=== PATIENT | female | born 1990 | race Caucasian/White ===

== ENCOUNTER 2016-09-22 05:10 | Inpatient (IN) | payer OTHER ==
[~2016-09-22] VITALS: Ht 165.1 cm; Wt 50.8 kg
[2016-09-22] VITALS (9 sets, daily range): BP systolic 111–134; BP diastolic 65–101; PULSE 64–128; RESP 16–20; TEMP 98.4–98.7; O2SAT 94–100
[~2016-09-22 05:10] MED LIST: PROM25SU8 PO; Z.0.NO CURRENT MEDS
[2016-09-22] MEDS ORDERED: SODIUM CHLOR 0.9% 1000 ML INJ 100 ML IV ONE (05:15)
[2016-09-22] MEDS ORDERED: SODIUM CHLOR 0.9% 1000 ML INJ 1,000 ML IV ONE ×2 (05:15)
[2016-09-22] MEDS ORDERED: PIPERACIL-TAZO 4.5 GM PREMIX 100 ML IV STA (05:15)
[2016-09-22 05:49] LABS: AUTOMATED NEUTROPHIL # 1.8 TH/MM3 (1.8-7.7); BASOPHIL % 0.8 % (0.0-2.0); EOSINOPHIL # 0.1 TH/MM3 (0-0.4); EOSINOPHIL % 2.9 % (0.0-4.0); HEMATOCRIT 38.4 % (35.0-46.0); HEMO FLAGS DIFF FINAL; LYMPH % 44.3 % (9.0-44.0); LYMPHOCYTE # 2.1 TH/MM3 (1.0-4.8); MEAN CELL VOLUME 91.5 FL (80.0-100.0); MEAN CORPUSCULAR HGB CONC 34.9 % (32.0-36.0); MONO % 13.6 % (0.0-8.0); NEUT % 38.4 % (16.0-70.0); PLATELET COUNT 155 TH/MM3 (150-450); RED CELL DISTRIBUTION WIDTH 14.5 % (11.6-17.2); WHITE BLOOD COUNT 4.7 TH/MM3 (4.0-11.0)
--- NOTE | 2016-09-22 06:04 | RADRPT ---
EXAM DATE/TIME: 09/22/2016 05:16 [facility] COMPARISON: No previous studies available for comparison. INDICATIONS : Fever. MEDICAL HISTORY : None. SURGICAL HISTORY : None. ENCOUNTER: Initial ACUITY: 1 day PAIN SCORE: 0/10 LOCATION: Bilateral chest FINDINGS: A single view of the chest demonstrates the lungs to be symmetrically aerated without evidence of mas s, infiltrate or effusion. The cardiomediastinal contours are unremarkable. Osseous structures are intact. CONCLUSION: 1. No acute cardiopulmonary disease. Albino Hubbard MD on September 22, 2016 at 6:02 Board Certified Radiologist. This report was verified electronically.
[2016-09-22 06:21] LABS: ALT (GPT) 152 U/L (10-53); ANION GAP 11 MEQ/L (5-15); AST (GOT) 539 U/L (15-37); BICARBONATE 27.4 MEQ/L (21.0-32.0); BLOOD UREA NITROGEN 5 MG/DL (7-18); CHLORIDE 103 MEQ/L (98-107); GLOMERULAR FILTRATION RATE 107 ML/MIN (>89); POTASSIUM 3.3 MEQ/L (3.5-5.1); SODIUM (NA) 141 MEQ/L (136-145)
[2016-09-22 06:25] LABS: ALKALINE PHOSPHATASE 166 U/L (45-117); CREATINE KINASE 298 U/L (26-192); TOTAL BILIRUBIN ADULT 0.3 MG/DL (0.2-1.0)
[2016-09-22 06:38] LABS: CKMB 5.8 NG/ML (0.5-3.6)
[2016-09-22 07:26] LABS: BACTERIA, URINE RARE /hpf; BLOOD, URINE NEG (NEG); COMMENT (UR) CATH-CULTURE IND; CULTURE IF INDICATED CATH CULTURE IND; GLUCOSE,URINE NEG (NEG); KETONE, URINE NEG (NEG); MUCUS URINE FEW /lpf (OCC); NITRITE,URINE NEG (NEG); PH, URINE 7.5 (5.0-8.5); RENAL EPITHELIAL CELLS <1 /hpf; SQUAMOUS EPITHELIAL CELL URINE 29 /hpf (0-5); URINE COLOR YELLOW (YELLW/STRAW)
--- NOTE | 2016-09-22 07:31 | PD ---
HPI Chief Complaint: Bleeding Time Seen by Provider: 05:15 Travel History International Travel<30 days: No Contact w/Intl Traveler<30days: No Traveled to known affect area: No History of Present Illness HPI 25-year-old female arrives to the ER by EMS at about 4 AM. She has suffered with intermittent episodes of rectal bleeding for about 10 years. Apparently intermittent episodes of rectal prolapse occur as well. She notices some red blood on toilet paper and on towels after showering. She notes no menstruation for about 2 years. She started to use drugs intravenously about 6 months ago. She came in to the ER this morning due to rectal pain quite severe which radiated up the spine. She fell to the ground twice due to pain. She reports, "I often do run fevers." She states the pain in the lower back is severe and constant. Decreased appetite and oral intake is reported. Upon the second assessment the patient reports drinking at least a pint of liquor daily and vomiting about 5 times per day. She denies diarrhea fecal urinary incontinence. No perianal perineal paresthesia to report. PFSH Past Medical History Blood Disorders: No Depression: Yes Diabetes: No Diminished Hearing: No Immunizations Current: Yes Tetanus Vaccination: Unknown Influenza Vaccination: No ?: Not LMP: pt states "it stopped about a yr ago" : 1 : 1 Dilation and Curettage (D&C): Yes Social History Alcohol Use: Yes (2 ETOH yesterday ) Tobacco Use: Yes (OCCASIONAL) Substance Use: No Allergies-Medications (Allergen,Severity, Reaction): Coded Allergies: Darvocet-N 100 (Verified Allergy, Unknown, 07/05/16) REPORTS NO ALLERGY Reported Meds & Prescriptions Reported Meds & Active Scripts Active No Active Prescriptions or Reported Medications Review of Systems Except as stated in HPI: all other systems reviewed are Neg General / Constitutional: Positive: Fever Gastrointestinal: Positive: Other (rectal bleeding) Musculoskeletal: Positive: Pain Psychiatric: Positive: Mood Disorder, Substance Abuse Physical Exam Narrative GENERAL: 25-year-old female mild to moderate distress SKIN: Warm and dry. Linear lesion along the left forearm consistent with IV drug abuse. HEAD: Atraumatic. Normocephalic. EYES: Pupils equal and round. No scleral icterus. No injection or drainage. ENT: No nasal bleeding or discharge. Mucous membranes pink and moist. NECK: Trachea midline. No JVD. CARDIOVASCULAR: Regular rate and rhythm. No murmur appreciated. RESPIRATORY: No accessory muscle use. Clear to auscultation. Breath sounds equal bilaterally. GASTROINTESTINAL: Soft. No focus of tenderness. RECTAL: No hemorrhoid fissure or fistula. No mass in the vault. Tone somewhat diminished. Clear mucus was guaiac negative. MUSCULOSKELETAL: No obvious deformities. No clubbing. No cyanosis. No edema. Tenderness in the lower lumbar spine midline area. NEUROLOGICAL: Awake and alert. No obvious cranial nerve deficits. Motor grossly within normal limits. Normal speech. PSYCHIATRIC: Appropriate mood and affect; insight and judgment normal. Data Data Last Documented VS Vital Signs Date Time Temp Pulse Resp B/P Pulse Ox O2 Delivery O2 Flow Rate FiO2 09/22/16 06:11 96 Nasal Cannula 2 09/22/16 05:14 98.4 128 18 134/81 Vital signs reviewed Orders Electrocardiogram (09/22/16 05:15) Complete Blood Count With Diff (09/22/16 05:15) Comprehensive Metabolic Panel (09/22/16 05:15) Lactic Acid Sepsis Protocol (09/22/16 05:15) Lipase (09/22/16 05:15) Ckmb (Isoenzyme) Profile (09/22/16 05:15) Troponin I (09/22/16 05:15) Urinalysis - C+S If Indicated (09/22/16 05:15) Blood Culture (09/22/16 05:15) Chest, Single Ap (09/22/16 05:15) Blood Glucose (09/22/16 05:15) Ecg Monitoring (09/22/16 05:15) Iv Access Insert/Monitor (09/22/16 05:15) Oximetry (09/22/16 05:15) Oxygen Administration (09/22/16 05:15) Piperacil-Tazo 4.5 Gm Premix (Zosyn 4.5 (09/22/16 05:15) Sodium Chlor 0.9% 1000 Ml Inj (Ns 1000 M (09/22/16 05:15) Sodium Chlor 0.9% 1000 Ml Inj (Ns 1000 M (09/22/16 05:15) Sodium Chlor 0.9% 1000 Ml Inj (Ns 1000 M (09/22/16 05:15) Ed Urine Pregnancytest Poc (09/22/16 05:15) Ct Pulmonary Angiogram (09/22/16 05:19) CKMB (09/22/16 05:30) CKMB% (09/22/16 05:30) Ct Abd/Pel W Iv Contrast(Rout) (09/22/16 06:46) Ct Lumb Spine W Iv Contrast (09/22/16 ) Ct Thor Spine W Iv Contrast (09/22/16 ) Labs Laboratory Tests Test 09/22/16 09/22/16 05:30 05:35 White Blood Count 4.7 TH/MM3 Red Blood Count 4.20 MIL/MM3 Hemoglobin 13.4 GM/DL Hematocrit 38.4 % Mean Corpuscular Volume 91.5 FL Mean Corpuscular Hemoglobin 32.0 PG Mean Corpuscular Hemoglobin 34.9 % Concent Red Cell Distribution Width 14.5 % Platelet Count 155 TH/MM3 Mean Platelet Volume 7.4 FL Neutrophils (%) (Auto) 38.4 % Lymphocytes (%) (Auto) 44.3 % Monocytes (%) (Auto) 13.6 % Eosinophils (%) (Auto) 2.9 % Basophils (%) (Auto) 0.8 % Neutrophils # (Auto) 1.8 TH/MM3 Lymphocytes # (Auto) 2.1 TH/MM3 Monocytes # (Auto) 0.6 TH/MM3 Eosinophils # (Auto) 0.1 TH/MM3 Basophils # (Auto) 0.0 TH/MM3 CBC Comment DIFF FINAL Differential Comment Sodium Level 141 MEQ/L Potassium Level 3.3 MEQ/L Chloride Level 103 MEQ/L Carbon Dioxide Level 27.4 MEQ/L Anion Gap 11 MEQ/L Blood Urea Nitrogen 5 MG/DL Creatinine 0.66 MG/DL Estimat Glomerular Filtration 107 ML/MIN Rate Random Glucose 86 MG/DL Calcium Level 8.6 MG/DL Total Bilirubin 0.3 MG/DL Aspartate Amino Transf 539 U/L (AST/SGOT) Alanine Aminotransferase 152 U/L (ALT/SGPT) Alkaline Phosphatase 166 U/L Total Creatine Kinase 298 U/L Creatine Kinase MB 5.8 NG/ML Creatine Kinase MB % 1.9 % Troponin I LESS THAN 0.02 NG/ML Total Protein 9.0 GM/DL Albumin 3.5 GM/DL Lipase 301 U/L Lactic Acid Level 1.3 mmol/L MDM Medical Decision Making Medical Screen Exam Complete: Yes Emergency Medical Condition: Yes Medical Record Reviewed: Yes Differential Diagnosis Endocarditis, rectal prolapse, anemia, hepatobiliary disease, epidural abscess, anemia, multiorgan failure, GI bleed Narrative Course Patient arrives tachycardic with a history of IV drug abuse coupled with rectal bleeding and severe pain in the back. Endocarditis epidural abscess are of obvious concern with workup for both initiated. 3 sets of blood cultures initiated. Zosyn and vancomycin started. [address] of the thoracic and lumbar spine as well as CT of the thorax and abdomen pelvis ordered. Oncoming provider to follow up on patient and disposition pending results of imaging and blood work. Scripts No Active Prescriptions or Reported Meds Nawaf Donato MD Sep 22, 2016 07:31
[2016-09-22] MEDS ORDERED: VANCOMYCIN INJ 1,250 MG in SODIUM CHLOR 0.9% 250 ML INJ 250 ML IV ONE (07:45)
--- NOTE | 2016-09-22 07:51 | RADRPT ---
EXAM DATE/TIME: 09/22/2016 07:15 [facility] COMPARISON: No previous studies available for comparison. INDICATIONS : Short of breath. IV CONTRAST: 75 cc Omnipaque 350 (iohexol) IV RADIATION DOSE: 8.29 CTDIvol (mGy) MEDICAL HISTORY : None SURGICAL HISTORY : None. ENCOUNTER: Initial ACUITY: 1 day PAIN SCALE: 3/10 LOCATION: chest TECHNIQUE: Volumetric scanning of the chest was performed using a pulmonary embolism protocol MIP images were re constructed. Using automated exposure control and adjustment of the mA and/or kV according to patien t size, radiation dose was kept as low as reasonably achievable to obtain optimal diagnostic quality images. FINDINGS: PULMONARY ARTERIES: No filling defects are seen in the pulmonary arteries through the segmental level. LUNGS: Mild patchy, predominantly groundglass opacity in the left lower lobe. Lungs are otherwise clear. PLEURAE: There is no pleural thickening or pleural effusion. MEDIASTINUM: There is good visualization of the great vessels of the middle mediastinum. No evidence of mediastin al or hilar adenopathy/mass. MUSCULOSKELETAL: Within normal limits for patient age. MISCELLANEOUS: Diffuse hypodensity of the liver indicating hepatic steatosis. CONCLUSION: 1. No evidence of pulmonary embolus. 2. Mild patchy opacity in the left lower lobe indicating atelectasis versus minimal inflammatory vaughan ge. No evidence of pulmonary consolidation Alex Mendez MD on September 22, 2016 at 7:43 Board Certified Radiologist. This report was verified electronically.
[2016-09-22] MEDS ORDERED: IOHEXOL 350 MG/ML 10 ML VIAL (for RAD DIAG) IV ONE (07:59)
--- NOTE | 2016-09-22 08:12 | RADRPT ---
EXAM DATE/TIME: 09/22/2016 07:15 [facility] COMPARISON: CT ABDOMEN & PELVIS W CONTRAST, January 28, 2015, 5:10. INDICATIONS : Abdomen pain, pancreatitis. IV CONTRAST: 75 cc Omnipaque 350 (iohexol) IV ; Cumulative dose for multiple exams. ORAL CONTRAST: No oral contrast ingested. RADIATION DOSE: 4.49 CTDIvol (mGy) MEDICAL HISTORY : None SURGICAL HISTORY : None. ENCOUNTER: Initial ACUITY: 1 day PAIN SCALE: 5/10 LOCATION: abdomen TECHNIQUE: Volumetric scanning of the abdomen and pelvis was performed. Using automated exposure control and ad justment of the mA and/or kV according to patient size, radiation dose was kept as low as reasonably achievable to obtain optimal diagnostic quality images. FINDINGS: LOWER LUNGS: The visualized lower lungs are clear. LIVER: Marked diffuse hypodensity of the liver indicating hepatic steatosis. No focal mass identified. Faizan l veins are patent. No biliary ductal dilatation identified. No calcified gallstones identified. SPLEEN: Normal size without lesion. PANCREAS: Within normal limits. KIDNEYS: 3 mm nonobstructing calculus in the midpole the right kidney. ADRENAL GLANDS: Within normal limits. VASCULAR: There is no aortic aneurysm. BOWEL/MESENTERY: No evidence of bowel dilatation. No free air or free fluid. Appendix within normal limits. ABDOMINAL WALL: Within normal limits. RETROPERITONEUM: Multiple prominent retroperitoneal lymph nodes. This is most evident in the para-aortic region at the level of the kidneys. Left para-aortic lymph node measures 1.6 cm in short axis dimension on image # 38, compared to 1.4 cm on prior study of 01/28/2015. [place] of lymph nodes in the left para-aortic region on image #37 measures 3.4 x 2.0 cm compared to 3.1 x 1.6 cm on the prior study. Aorticocaval lymph node measures 2.0 x 1.0 on image #30 compared to 1.1 x 0.6 cm on the prior study. There is now abnormal presacral soft tissue density measuring 3.2 x 1.4 cm, not seen on the prior study. BLADDER: No wall thickening or mass. REPRODUCTIVE: Left-sided fundal uterine fibroid is again seen slightly less prominent than on the comparison study. Adnexal regions within normal limits. INGUINAL: There is no lymphadenopathy or hernia. MUSCULOSKELETAL: Within normal limits for patient age. CONCLUSION: 1. Multiple mildly to moderately enlarged retroperitoneal lymph nodes, most prominent in the para-aor tic region of the abdomen. The lymph nodes have increased in size when compared to the prior study of January 2015. New presacral masslike retroperitoneal soft tissue density. These findings are nonspecifi c and may represent reactive lymph nodes related to infection. Malignancy such as lymphoma also in th e differential diagnosis. 2. Moderate to severe hepatic steatosis. 3. Nonobstructing right renal calculus. 4. Left-sided fundal uterine fibroid again seen. 5. No peripancreatic inflammatory changes identified. Alex Mendez MD on September 22, 2016 at 7:50 Board Certified Radiologist. This report was verified electronically.
[2016-09-22] MEDS ORDERED: ONDANSETRON HCL 4 MG/2 ML VIAL IV PUSH ONE (08:15)
--- NOTE | 2016-09-22 08:32 | RADRPT ---
EXAM DATE/TIME: 09/22/2016 07:15 [facility] COMPARISON: CT THORACIC SPINE W CONTRAST, September 22, 2016, 7:15. INDICATIONS : Lower back pain. IV CONTRAST: 75 cc Omnipaque 350 (iohexol) IV ; Cumulative dose for multiple exams. RADIATION DOSE: ; Reconstructed from previous dataset MEDICAL HISTORY : None SURGICAL HISTORY : None. ENCOUNTER: Initial ACUITY: 1 day PAIN SCALE: 5/10 LOCATION: lower back pain. TECHNIQUE: Volumetric scanning of the lumbar spine was performed. Multiplanar reconstructions in the sagittal, coronal and oblique axial planes were performed. Using automated exposure control and adjustment of the mA and/or kV according to patient size, radiation dose was kept as low as reasonably achievable t o obtain optimal diagnostic quality images. FINDINGS: CONUS MEDULLARIS: Normal. PARASPINAL SOFT TISSUES: Normal. LUMBAR CORD: Normal. DURAL SAC: Normal. L1-L2: The disc, uncovertebral joints, central canal, foramina, and facets are normal. L2-L3: The disc, uncovertebral joints, central canal, foramina, are normal. L3-L4: The disc, uncovertebral joints, central canal, foramina, and facets are normal. L4-L5: The disc, uncovertebral joints, central canal, foramina, and facets are normal. L5-S1: The disc, uncovertebral joints, central canal, foramina, and facets are normal. CONCLUSION: Mild left-sided facet arthrosis at L2-3. Presacral soft tissue density, prominent ret roperitoneal lymph nodes, and right-sided nonobstructing renal calculus as described on abdomen and p ricardo CT report. Alex Mendez MD on September 22, 2016 at 8:30 Board Certified Radiologist. This report was verified electronically.
--- NOTE | 2016-09-22 08:37 | RADRPT ---
EXAM DATE/TIME: 09/22/2016 07:15 [facility] COMPARISON: CT ABDOMEN & PELVIS W CONTRAST, September 22, 2016, 7:15. INDICATIONS : Upper back pain. IV CONTRAST: 75 cc Omnipaque 350 (iohexol) IV RADIATION DOSE: ; Reconstructed from previous dataset MEDICAL HISTORY : None SURGICAL HISTORY : None. ENCOUNTER: Initial ACUITY: 1 day PAIN SCALE: 5/10 LOCATION: lower back TECHNIQUE: Volumetric scanning of the thoracic spine was performed. Multiplanar reconstructions in the sagittal , coronal and oblique axial planes were performed. Using automated exposure control and adjustment o f the mA and/or kV according to patient size, radiation dose was kept as low as reasonably achievable to obtain optimal diagnostic quality images. FINDINGS: Mild right convex diffuse thoracic curvature. The vertebral bodies of the thoracic spine are in normal alignment without evidence of subluxation. Vertebral body height is maintained. No fractures are seen. Small Schmorl's nodes are noted at T7-8 and T8-9, T9-10, T10-11 and T11-12. T1-T2: Normal. T2-T3: The thecal sac has a normal diameter. No evidence of disc bulge or protrusion. T3-T4: The thecal sac has a normal diameter. No evidence of disc bulge or protrusion. T4-T5: The thecal sac has a normal diameter. No evidence of disc bulge or protrusion. T5-T6: The thecal sac has a normal diameter. No evidence of disc bulge or protrusion. T6-T7: The thecal sac has a normal diameter. No evidence of disc bulge or protrusion. T7-T8: The thecal sac has a normal diameter. No evidence of disc bulge or protrusion. T8-T9: The thecal sac has a normal diameter. No evidence of disc bulge or protrusion. T9-T10: Right paracentral disc protrusion. Central canal diameter within normal limits. Neural foraminal diam eters within normal limits. T10-T11: The thecal sac has a normal diameter. No evidence of disc bulge or protrusion. T11-T12: Left paracentral disc protrusion. Central canal diameter within normal limits. Neural foraminal diame ters within normal limits. T12-L1: The thecal sac has a normal diameter. No evidence of disc bulge or protrusion. CONCLUSION: Mild multilevel degenerative findings. No evidence of abscess. Alex Mendez MD on September 22, 2016 at 8:31 Board Certified Radiologist. This report was verified electronically.
[2016-09-22] MEDS ORDERED: PIPERACIL-TAZO 3.375 GM PREMIX 50 ML IV ONE (09:15)
--- NOTE | 2016-09-22 09:19 | PD ---
Physical Exam Date Seen by Provider: Sep 22, 2016 Time Seen by Provider: 09:05 Narrative She was signed out to me by Dr. Donato at [address] AM[address] We're awaiting CT results. The patient has rectal bleeding, pain and sensation of pressure inside her pelvis. CT scan shows a presacral retroperitoneal mass like structure. There was also noted lymphadenopathy. The differential diagnosis was infectious versus lymphoma versus inflammatory changes. The patient initially presented with tachycardia with a rate in the 120s. Data Data Last Documented VS Vital Signs Date Time Temp Pulse Resp B/P Pulse Ox O2 Delivery O2 Flow Rate FiO2 09/22/16 08:27 95 20 111/79 95 Room Air 09/22/16 06:11 2 09/22/16 05:14 98.4 Orders Electrocardiogram (09/22/16 05:15) Complete Blood Count With Diff (09/22/16 05:15) Comprehensive Metabolic Panel (09/22/16 05:15) Lactic Acid Sepsis Protocol (09/22/16 05:15) Lipase (09/22/16 05:15) Ckmb (Isoenzyme) Profile (09/22/16 05:15) Troponin I (09/22/16 05:15) Urinalysis - C+S If Indicated (09/22/16 05:15) Blood Culture (09/22/16 05:15) Chest, Single Ap (09/22/16 05:15) Blood Glucose (09/22/16 05:15) Ecg Monitoring (09/22/16 05:15) Iv Access Insert/Monitor (09/22/16 05:15) Oximetry (09/22/16 05:15) Oxygen Administration (09/22/16 05:15) Piperacil-Tazo 4.5 Gm Premix (Zosyn 4.5 (09/22/16 05:15) Sodium Chlor 0.9% 1000 Ml Inj (Ns 1000 M (09/22/16 05:15) Sodium Chlor 0.9% 1000 Ml Inj (Ns 1000 M (09/22/16 05:15) Sodium Chlor 0.9% 1000 Ml Inj (Ns 1000 M (09/22/16 05:15) Ed Urine Pregnancytest Poc (09/22/16 05:15) Ct Pulmonary Angiogram (09/22/16 05:19) CKMB (09/22/16 05:30) CKMB% (09/22/16 05:30) Ct Abd/Pel W Iv Contrast(Rout) (09/22/16 06:46) Ct Lumb Spine W Iv Contrast (09/22/16 ) Ct Thor Spine W Iv Contrast (09/22/16 ) Urine Culture (09/22/16 06:55) Vancomycin Inj (Vancomycin Inj) (09/22/16 07:45) Iohexol 350 Inj (Omnipaque 350 Inj) (09/22/16 07:59) Ondansetron Inj (Zofran Inj) (09/22/16 08:15) Piperacil-Tazo 3.375 Gm Premix (Zosyn 3. (09/22/16 09:15) Admit Order (Ed Use Only) (09/22/16 09:15) Labs Laboratory Tests Test 09/22/16 09/22/16 09/22/16 05:30 05:35 06:55 White Blood Count 4.7 TH/MM3 Red Blood Count 4.20 MIL/MM3 Hemoglobin 13.4 GM/DL Hematocrit 38.4 % Mean Corpuscular Volume 91.5 FL Mean Corpuscular Hemoglobin 32.0 PG Mean Corpuscular Hemoglobin 34.9 % Concent Red Cell Distribution Width 14.5 % Platelet Count 155 TH/MM3 Mean Platelet Volume 7.4 FL Neutrophils (%) (Auto) 38.4 % Lymphocytes (%) (Auto) 44.3 % Monocytes (%) (Auto) 13.6 % Eosinophils (%) (Auto) 2.9 % Basophils (%) (Auto) 0.8 % Neutrophils # (Auto) 1.8 TH/MM3 Lymphocytes # (Auto) 2.1 TH/MM3 Monocytes # (Auto) 0.6 TH/MM3 Eosinophils # (Auto) 0.1 TH/MM3 Basophils # (Auto) 0.0 TH/MM3 CBC Comment DIFF FINAL Differential Comment Sodium Level 141 MEQ/L Potassium Level 3.3 MEQ/L Chloride Level 103 MEQ/L Carbon Dioxide Level 27.4 MEQ/L Anion Gap 11 MEQ/L Blood Urea Nitrogen 5 MG/DL Creatinine 0.66 MG/DL Estimat Glomerular Filtration 107 ML/MIN Rate Random Glucose 86 MG/DL Calcium Level 8.6 MG/DL Total Bilirubin 0.3 MG/DL Aspartate Amino Transf 539 U/L (AST/SGOT) Alanine Aminotransferase 152 U/L (ALT/SGPT) Alkaline Phosphatase 166 U/L Total Creatine Kinase 298 U/L Creatine Kinase MB 5.8 NG/ML Creatine Kinase MB % 1.9 % Troponin I LESS THAN 0.02 NG/ML Total Protein 9.0 GM/DL Albumin 3.5 GM/DL Lipase 301 U/L Lactic Acid Level 1.3 mmol/L Urine Color YELLOW Urine Turbidity HAZY Urine pH 7.5 Urine Specific [place] 1.022 Urine Protein TRACE mg/dL Urine Glucose (UA) NEG mg/dL Urine Ketones NEG mg/dL Urine Occult Blood NEG Urine Nitrite NEG Urine Bilirubin NEG Urine Urobilinogen LESS THAN 2.0 MG/DL Urine Leukocyte Esterase NEG Urine RBC 1 /hpf Urine WBC 4 /hpf Urine Squamous Epithelial 29 /hpf Cells Urine Renal Epithelial Cells <1 /hpf Urine Amorphous Sediment FEW Urine Bacteria RARE /hpf Urine Mucus FEW /lpf Microscopic Urinalysis Comment CATH-CULTURE IND MDM Medical Record Reviewed: Yes Supervised Visit with SHAILESH: No Narrative Course 25-year-old female signed out to me by Dr. Nawaf Donato. We are waiting CT scan results. The patient came in with rectal bleeding and pain. She also had a large pressure-like sensation in her rectum into her pelvis. CT scan shows a presacral retroperitoneal mass with a differential of infectious versus neoplastic. The patient's LFTs are also elevated with predominance of AST over ALT. The patient had previously been started on vancomycin. Her white blood cell count is 4.2. I spoke with Dr. Haro, [facility] hospitalist covering for her primary care doctor, Dr. Mahad Gomes, who requested we add Zosyn to her antibiotics. She will be admitted to his service. Diagnosis Primary Impression: presacral retroperitoneal mass Additional Impressions: Elevated liver enzymes history of IVD drug use. Rectal bleeding Scripts No Active Prescriptions or Reported Meds Javier Bautista MD Sep 22, 2016 09:19
[2016-09-22] MEDS ORDERED: LORazepam 2 MG/ML VIAL IV PUSH PRN ×3 (10:30)
[2016-09-22] MEDS ORDERED: POTASSIUM CHLORIDE 20 MEQ CONTROLLED RELEASE TAB PO ONE (10:30)
[2016-09-22] MEDS ORDERED: MAGNESIUM HYDROXIDE SUSP 30 ML CUP PO PRN (10:30)
[2016-09-22] MEDS ORDERED: LORazepam 2 MG TAB PO PRN (10:30)
[2016-09-22] MEDS ORDERED: ACETAMINOPHEN 325 MG TAB PO PRN (10:30)
[2016-09-22] MEDS ORDERED: LORazepam 1 MG TAB PO PRN (10:30)
[2016-09-22] MEDS ORDERED: FLUMAZENIL 0.5 MG/5 ML VIAL IV PUSH PRN (10:30)
[2016-09-22] MEDS ORDERED: BISACODYL 10 MG SUPP PR PRN (10:30)
[2016-09-22] MEDS ORDERED: Vancomycin Consult Pharmacy 1 EA XX SCH (10:30)
[2016-09-22] MEDS ORDERED: SODIUM CHLORIDE 0.9% FLUSH 5 ML FLUSH FLUSH PRN (10:30)
[2016-09-22] MEDS ORDERED: NALOXONE HCL 0.4 MG/ML AMP IV PRN (10:30)
--- NOTE | 2016-09-22 12:06 | PD.CAR.PN ---
CVT Progress Note Subjective/Hospital Course: 25-year-old female with the retroperitoneal para-aortic lymphadenopathy and the likelihood lymphatic mass in her pelvis Related symptoms of nausea vomiting weight loss and possible rectal bleeding Will proceed with laparoscopic biopsy in this lady once colonoscopy and upper endoscopy are done and serologic testing is completed, likely early this coming week Full consult dictated Thanks Ermelinda Objective: Vital Signs Date Time Temp Pulse Resp B/P Pulse Ox O2 Delivery O2 Flow Rate FiO2 09/22/16 08:27 95 20 111/79 95 Room Air 09/22/16 08:26 100 09/22/16 06:11 96 Nasal Cannula 2 09/22/16 05:19 Room Air 09/22/16 05:14 98.4 128 18 134/81 94 Labs: Laboratory Tests Test 09/22/16 09/22/16 09/22/16 05:30 05:35 06:55 White Blood Count 4.7 TH/MM3 (4.0-11.0) Red Blood Count 4.20 MIL/MM3 (4.00-5.30) Hemoglobin 13.4 GM/DL (11.6-15.3) Hematocrit 38.4 % (35.0-46.0) Mean Corpuscular Volume 91.5 FL (80.0-100.0) Mean Corpuscular Hemoglobin 32.0 PG (27.0-34.0) Mean Corpuscular Hemoglobin 34.9 % Concent (32.0-36.0) Red Cell Distribution Width 14.5 % (11.6-17.2) Platelet Count 155 TH/MM3 (150-450) Mean Platelet Volume 7.4 FL (7.0-11.0) Neutrophils (%) (Auto) 38.4 % (16.0-70.0) Lymphocytes (%) (Auto) 44.3 % (9.0-44.0) Monocytes (%) (Auto) 13.6 % (0.0-8.0) Eosinophils (%) (Auto) 2.9 % (0.0-4.0) Basophils (%) (Auto) 0.8 % (0.0-2.0) Neutrophils # (Auto) 1.8 TH/MM3 (1.8-7.7) Lymphocytes # (Auto) 2.1 TH/MM3 (1.0-4.8) Monocytes # (Auto) 0.6 TH/MM3 (0-0.9) Eosinophils # (Auto) 0.1 TH/MM3 (0-0.4) Basophils # (Auto) 0.0 TH/MM3 (0-0.2) CBC Comment DIFF FINAL Differential Comment Sodium Level 141 MEQ/L (136-145) Potassium Level 3.3 MEQ/L (3.5-5.1) Chloride Level 103 MEQ/L (98-107) Carbon Dioxide Level 27.4 MEQ/L (21.0-32.0) Anion Gap 11 MEQ/L (5-15) Blood Urea Nitrogen 5 MG/DL (7-18) Creatinine 0.66 MG/DL (0.50-1.00) Estimat Glomerular Filtration 107 ML/MIN Rate (>89) Random Glucose 86 MG/DL (74-106) Calcium Level 8.6 MG/DL (8.5-10.1) Total Bilirubin 0.3 MG/DL (0.2-1.0) Aspartate Amino Transf 539 U/L (15-37) (AST/SGOT) Alanine Aminotransferase 152 U/L (10-53) (ALT/SGPT) Alkaline Phosphatase 166 U/L (45-117) Total Creatine Kinase 298 U/L (26-192) Creatine Kinase MB 5.8 NG/ML (0.5-3.6) Creatine Kinase MB % 1.9 % (0.0-4.0) Troponin I LESS THAN 0.02 NG/ML (0.02-0.05) Total Protein 9.0 GM/DL (6.4-8.2) Albumin 3.5 GM/DL (3.4-5.0) Lipase 301 U/L (73-393) Lactic Acid Level 1.3 mmol/L (0.4-2.0) Urine Color YELLOW (YELLW/STRAW) Urine Turbidity HAZY (CLEAR) Urine pH 7.5 (5.0-8.5) Urine Specific [place] 1.022 (1.002-1.035) Urine Protein TRACE mg/dL (NEG-TRACE) Urine Glucose (UA) NEG mg/dL (NEG) Urine Ketones NEG mg/dL (NEG) Urine Occult Blood NEG (NEG) Urine Nitrite NEG (NEG) Urine Bilirubin NEG (NEG) Urine Urobilinogen LESS THAN 2.0 MG/DL (LESS THAN 2.0) Urine Leukocyte Esterase NEG (NEG) Urine RBC 1 /hpf (0-3) Urine WBC 4 /hpf (0-5) Urine Squamous Epithelial 29 /hpf (0-5) Cells Urine Renal Epithelial Cells <1 /hpf (NONE) Urine Amorphous Sediment FEW Urine Bacteria RARE /hpf (NONE) Urine Mucus FEW /lpf (OCC) Microscopic Urinalysis Comment CATH-CULTURE IND Result Diagram: 09/22/1630 09/22/16 0530 Zana Lee MD Sep 22, 2016 12:06
--- NOTE | 2016-09-22 12:31 | MB ---
cc: ZANA MCLAUGHLIN MD DATE OF CONSULTATION: 09/22/2016 REASON FOR CONSULTATION: Retroperitoneal lymphadenopathy, abdominopelvic mass, rectal bleeding, possible lymphoma. HISTORY OF PRESENT ILLNESS: This 25-year-old female presented to the hospital with complaint of occasional intermittent bleeding per rectum and severe abdominal pain in the lower abdomen that made her fall down. The pain is stabbing in nature and then it abates. The patient states that she has had these pains now for months with no end but was afraid to come to the hospital and she was aware of these symptoms before. She is currently on workup in progress, and based on CT scan findings surgery has been consulted. The patient also states that she has lost some weight in the last few months and does not eat, vomits five to seven times a day. She smokes pot and has track gilbert from IV drug abuse. PAST MEDICAL HISTORY: The patient denies medical history other than the above-noted. PAST SURGICAL HISTORY The patient denies. SOCIAL HISTORY: She smokes pot and uses IV drugs based on the track gilbert on the arms. MEDICATIONS:: Does not take any medications. PHYSICAL EXAMINATION: GENERAL: The physical examination reveals a 25-year-old female in no acute distress. HEAD, EYES, EARS, NOSE, THROAT: Normocephalic. No trauma to the head. Pupils equal and reactive. Extraocular muscles intact. NECK: The neck is supple. Bilateral carotid pulses. No bruits. LYMPHATIC: Examination of the neck, supraclavicular and infraclavicular areas was carried out, and there are no packets of lymph nodes that would be amiable to biopsy. No axillary lymph nodes are noted. CHEST: Bilateral breath sounds. HEART: Regular rhythm. ABDOMEN: Abdomen soft. Active bowel sounds. Diffusely tender in both lower quadrants but no rebound and no guarding is noted. The CT scan described a 3 cm mass in the presacral area, which is not palpable on exam. RECTAL: Rectal exam is skipped due to family in the room. EXTREMITIES: The patient has bilateral femoral, poplitea, dorsalis pedis, posterior tibial pulses. No signs of acute vascular deficit. Again, there are no lymph nodes in the groins either that would be amiable to biopsy. BACK: Back is grossly normal. IMPRESSION AND RECOMMENDATIONS: 1. A patient with known IV drug abuse now with lymphadenopathy in the retroperitoneal space paraaortic ranging from the L1 level of the renal veins all the way down to the pelvis as well as an intraabdominal, probably mesenteric, lymph node mass in the pelvis. The differential diagnosis includes low-grade lymphoma versus sarcoma versus an AIDS-related /HIV-related problem. 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 She will need HIV testing, upper and lower endoscopy and then eventually she will need a lymph node biopsy or removal of this pelvic mass as a biopsy. Either way she will need an open approach, either laparoscopic or a classic laparotomy approach depending on the tissue obtained. At this point I believe the priorities are to do the serologic testing, upper and lower endoscopy, and then I will proceed with a surgical biopsy. I thank you much for the referral. I will continue to follow the patient with you. Zana TUCKER/TIFF /12:02 PM /12:20 PM DEANGELO
[2016-09-22] MEDS: SODIUM CHLOR 0.9% 1000 ML INJ 1,000 ML IV SCH ×2 (12:42→21:51)
[2016-09-22] MEDS: HEPARIN SODIUM - SQ 10,000 UNITS/ML VIAL SQ SCH ×2 (12:43→21:53)
--- NOTE | 2016-09-22 13:13 | PD.CONS ---
HPI History of Present Illness This is a 25 year old female patient who came to the ER for evaluation of abdominal pain. She reports that she has been having intermittent abdominal pain on a daily basis for the past 6 years. She describes this as a sharp, shooting pain in her lower/mid abdomen with radiation to her back at times. She also reports associated nausea, vomiting- consisting of bilious material- 10x a day. She has severe GERD on a daily basis. She does not take any regular medicine for this but states she does take TUMS at times. She also reports intermittent constipation/diarrhea- more constipation than diarrhea and occasional bright red blood per rectum. She has not tried any OTC laxatives. She has associated bloating. She reports the pain became much more severe yesterday and therefore she came to the ER for further evaluation. Abdomen/ Pelvis CT (09/22/16)----> 1. Multiple mildly to moderately enlarged retroperitoneal lymph nodes, most prominent in the para-aortic region of the abdomen. The lymph nodes have increased in size when compared to the prior study of January 2015. New presacral masslike retroperitoneal soft tissue density. These findings are nonspecific and may represent reactive lymph nodes related to infection. Malignancy such as lymphoma also in the differential diagnosis. 2. Moderate to severe hepatic steatosis. 3. Nonobstructing right renal calculus. 4. Left-sided fundal uterine fibroid again seen. 5. No peripancreatic inflammatory changes identified. Surgery has seen the patient and would like us to evaluate endoscopically and then he will plan for biopsy and medical oncology evaluation tomorrow. She was also noted to have elevated LFTs with T. Bili 0.3, AST 539, ALT 152, Alk Phosph 166. She denies any known hx of liver disease and originally reported that she drinks 2 drinks per day, but upon further questioning, then reported that she drank 5-6 shots yesterday. She originally denied any Tylenol use, but under repeated questioning, states that she takes Lortab. She reports that she took 2 yesterday. There is no hx of known hepatitis and she denies any family hx of liver disease. However, when I left the room, her mother came out and said she is not being very forthcoming, but that she has a long history of ETOH abuse and has been seen in the past for elevated LFTs. She also reports that she has a long hx of IVDA, recently quit. (Amber Morales) PFSH Past Medical History Hx ETOH abuse Hx PSA, IVDA Chronic N/V Alternating constipation, diarrhea Chronic abdominal pain GERD Past Surgical History D&C (Amber Morales) Coded Allergies: Darvocet-N 100 (Verified Allergy, Unknown, 07/05/16) REPORTS NO ALLERGY Medications Allergies Coded Allergies Type Severity Reaction Last Updated Verified Darvocet-N 100 Allergy Unknown 07/05/16 Yes Active Scripts Medications Dose Route/Sig Days Date Category No Active Prescriptions or Reported Medications Rx Taking Lortab for pain Family History Maternal gf had non hodgkin's lymphoma maternal gm with uterine cancer No family hx of liver disease Social History Occasional tobacco Daily ETOH use, unclear how much 5-6 shots yesterday Hx IVDA, recently stopped. Taking hydrocodone (Amber Morales) Review of Systems Constitutional: COMPLAINS OF: Fatigue, Fever, Chills, DENIES: Weight loss Respiratory: DENIES: Cough Cardiovascular: DENIES: Chest pain Gastrointestinal: COMPLAINS OF: Abdominal pain, Bloody stools, Constipation, Diarrhea, Nausea, Vomiting, Heartburn Musculoskeletal: COMPLAINS OF: Back pain Integumentary: DENIES: Rash Hematologic/lymphatic: DENIES: Bruising Neurologic: DENIES: Headache Psychiatric: COMPLAINS OF: Anxiety, DENIES: Confusion (Amber Morales) GI Exam Vitals I&O Vital Signs Date Time Temp Pulse Resp B/P Pulse Ox O2 Delivery O2 Flow Rate FiO2 09/22/16 08:27 95 20 111/79 95 Room Air 09/22/16 08:26 100 09/22/16 06:11 96 Nasal Cannula 2 09/22/16 05:19 Room Air 09/22/16 05:14 98.4 128 18 134/81 94 Laboratory Test 09/22/16 09/22/16 09/22/16 05:30 05:35 06:55 White Blood Count 4.7 TH/MM3 Red Blood Count 4.20 MIL/MM3 Hemoglobin 13.4 GM/DL Hematocrit 38.4 % Mean Corpuscular Volume 91.5 FL Mean Corpuscular Hemoglobin 32.0 PG Mean Corpuscular Hemoglobin 34.9 % Concent Red Cell Distribution Width 14.5 % Platelet Count 155 TH/MM3 Mean Platelet Volume 7.4 FL Neutrophils (%) (Auto) 38.4 % Lymphocytes (%) (Auto) 44.3 % Monocytes (%) (Auto) 13.6 % Eosinophils (%) (Auto) 2.9 % Basophils (%) (Auto) 0.8 % Neutrophils # (Auto) 1.8 TH/MM3 Lymphocytes # (Auto) 2.1 TH/MM3 Monocytes # (Auto) 0.6 TH/MM3 Eosinophils # (Auto) 0.1 TH/MM3 Basophils # (Auto) 0.0 TH/MM3 CBC Comment DIFF FINAL Differential Comment Sodium Level 141 MEQ/L Potassium Level 3.3 MEQ/L Chloride Level 103 MEQ/L Carbon Dioxide Level 27.4 MEQ/L Anion Gap 11 MEQ/L Blood Urea Nitrogen 5 MG/DL Creatinine 0.66 MG/DL Estimat Glomerular Filtration 107 ML/MIN Rate Random Glucose 86 MG/DL Calcium Level 8.6 MG/DL Total Bilirubin 0.3 MG/DL Aspartate Amino Transf 539 U/L (AST/SGOT) Alanine Aminotransferase 152 U/L (ALT/SGPT) Alkaline Phosphatase 166 U/L Total Creatine Kinase 298 U/L Creatine Kinase MB 5.8 NG/ML Creatine Kinase MB % 1.9 % Troponin I LESS THAN 0.02 NG/ML Total Protein 9.0 GM/DL Albumin 3.5 GM/DL Lipase 301 U/L Lactic Acid Level 1.3 mmol/L Urine Color YELLOW Urine Turbidity HAZY Urine pH 7.5 Urine Specific [place] 1.022 Urine Protein TRACE mg/dL Urine Glucose (UA) NEG mg/dL Urine Ketones NEG mg/dL Urine Occult Blood NEG Urine Nitrite NEG Urine Bilirubin NEG Urine Urobilinogen LESS THAN 2.0 MG/DL Urine Leukocyte Esterase NEG Urine RBC 1 /hpf Urine WBC 4 /hpf Urine Squamous Epithelial 29 /hpf Cells Urine Renal Epithelial Cells <1 /hpf Urine Amorphous Sediment FEW Urine Bacteria RARE /hpf Urine Mucus FEW /lpf Microscopic Urinalysis Comment CATH-CULTURE IND Date/Time Procedure Status Source Growth 09/22/16 06:55 Urine Culture Received Urine Clean Catch Pending 09/22/16 05:40 Aerobic Blood Culture Received Blood Peripheral Pending 09/22/16 05:40 Anaerobic Blood Culture Received Blood Peripheral Pending Physical Examination HEENT: Normocephalic; atraumatic; no jaundice. Throat is clear. NECK: Neck is supple, no JVD, no lymphadenopathy. CHEST: CTA CARDIAC: RRR ABDOMEN: Soft, nondistended,mild to moderate diffuse tenderness; no hepatosplenomegaly; bowel sounds are present in all four quadrants. EXTREMITIES: No clubbing, cyanosis, or edema. SKIN: Normal; no rash; no jaundice. VISITING TEACHER: No focal deficits; alert and oriented times three. (MoralesAmber Baugh NIKOLAY) Assessment and Plan Plan ASSESSMENT: - Abdominal pain. Abdomen/Pelvis CT (09/22/16)----> 1. Multiple mildly to moderately enlarged retroperitoneal lymph nodes, most prominent in the para- aortic region of the abdomen. The lymph nodes have increased in size when compared to the prior study of January 2015. New presacral masslike retroperitoneal soft tissue density. These findings are nonspecific and may represent reactive lymph nodes related to infection. Malignancy such as lymphoma also in the differential diagnosis. 2. Moderate to severe hepatic steatosis. 3. Nonobstructing right renal calculus. 4. Left-sided fundal uterine fibroid again seen. 5. No peripancreatic inflammatory changes identified. Surgery has seen the patient and would like us to evaluate endoscopically. He is planning for IR guided biopsy if able and medical oncology evaluation. Pt states that she has had intermittent abdominal pain on a daily basis x 6 years, no relation to food. No egd/colonoscopy. Will plan for egd/colonoscopy in am. - N/V. Pt reports daily n/v 10x a day with bilious material. No hx of PUD. Severe GERD. LFTs as above. Lipase 301. - Alternating constipation/diarrhea. EGD/Colonoscopy. - Transaminitis/Elevated LFTs. T. Bili 0.3, AST 539, ALT 152, Alk Phosph 166. She denies any known hx of liver disease and originally reported that she drinks 2 drinks per day, but upon further questioning, then reported that she drank 5-6 shots yesterday. She originally denied any Tylenol use, but under repeated questioning, states that she takes Lortab. She reports that she took 2 yesterday. There is no hx of known hepatitis and she denies any family hx of liver disease. However, when I left the room, her mother came out and said she is not being very forthcoming, but that she has a long history of ETOH abuse and has been seen in the past for elevated LFTs. She also reports that she has a long hx of IVDA, recently quit. Liver workup. Toxicology screen. - Abn. Imaging with retroperitoneal adenopathy. Multiple mildly to moderately enlarged retroperitoneal lymph nodes, most prominent in the para-aortic region of the abdomen. The lymph nodes have increased in size when compared to the prior study of January 2015. New presacral masslike retroperitoneal soft tissue density. These findings are nonspecific and may represent reactive lymph nodes related to infection vs. malignancy PLAN: - Plan for egd/colonoscopy in am - Obtain consents - Clear liquids - NPO after MN - Hold Heparin after MN - Cont. Abx - Protonix - Hepatitis profile - AFP level - DEBORAH, AMA, ASMA - Iron Saturation, Ferritin - Alpha 1 Antitrypsin, Ceruloplasmin - CBC, CMP in am - Supportive care - Further recommendations to follow based on results of above - Pt seen and examined by Dr. Vela and myself and this note is written on her behalf (Amber Morales) Physician Comments seen, examined agree with above (Kecia Vela MD) Amber Morales Sep 22, 2016 13:13 Kecia Vela MD Sep 22, 2016 18:21
--- NOTE | 2016-09-22 14:10 | EKG ---
Date Performed: 09/22/2016 Time Performed: 06:17:28 PTAGE: 25 years EKG: SINUS TACHYCARDIA Since previous tracing, T wave changes have improved, otherwise no signif icant change ABNORMAL RHYTHM ECG PREVIOUS TRACING : 06/18/2010 18.35 DOCTOR: Marck Ray Interpretating Date/Time 09/22/2016 15:39:01
[2016-09-22] MEDS ORDERED: PEG (High)/E-LYTE SOLN 4000 ML BTL PO ONE (16:00)
[2016-09-22] MEDS: PIPERACIL-TAZO 4.5 GM PREMIX 100 ML IV SCH ×2 (17:19→21:59)
--- NOTE | 2016-09-22 17:19 | MH ---
cc: ROSS HARO DATE OF ADMISSION 09/22/2016 DATE OF [address] Ross Haro[address] PRIMARY CARE PHYSICIAN Questionable Dr. Gomes. HISTORY OF THE PRESENT ILLNESS The patient is a very pleasant 25-year female without any significant past medical history. The patient is drinking alcohol on and off heavily from approximately 13 years. And she is doing IV drug use from one year. She is using IV opioids. She is also drinking alcohol approximately half a pint of hard liquor a day. She has no other medical conditions. She has no surgery. As per patient from past 6 years she has intermittent abdominal pain. And from past few days it is getting more and it is sharp, shooting up from the lower abdominal rectal area toward the back side. She also describes a rectal prolapse whenever she strains or she passes stool it the colon comes out and it goes back to itself again and sometimes she sees blood on her tissue paper. She has some nausea and vomiting from past approximately one week which is bilious material. And she has had some discomfort in the epigastric region. She has also a fever on and off. And one time she had a very high-grade fever. She feels it usually in the morning time and it goes away after one hour. She is not losing any weight. She has no chest pain or palpitations. She denies any genitourinary symptoms. She has no menses for a long time. She came to the ER. In the emergency room she was evaluated by the emergency room physician and workup was done including abdominal and pelvic CT which shows abnormal mass in the ton-sacral area. For which the patient is recommended for admission because of fever and her condition as described above. The patient is seen with female RN and her boyfriend at bedside in the ER. PAST MEDICAL HISTORY 1. History of EtOH abuse. 2. IV drug abuse. 3. Questionable chronic abdominal pain. 4. Gastroesophageal reflux disease. PAST SURGICAL HISTORY Dilation and curettage in the past only. MEDICATIONS None active. ALLERGIES DARVOCET N-100. FAMILY HISTORY Grandfather had non-Hodgkin lymphoma. She does not know her biological father. Grandmother has uterine cancer. SOCIAL HISTORY She smokes one to two cigarettes a day. She drinks half a pint of hard liquor a day. She does IV drug abuse. Has no kids. 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 REVIEW OF SYSTEMS As described in the history of present illness. Otherwise negative for 10 systems. PHYSICAL EXAMINATION GENERAL: The patient is alert and oriented times three, well built, well-nourished lying in bed without any apparent distress at present. VITAL SIGNS: The patient is afebrile. Pulse is in the 80s, respiratory rate is 20, blood pressure was 117/79 when I examined the patient pulse of ox 95% on room air. HEENT: Head is atraumatic, normocephalic. Eyes negative conjunctival icterus. Mouth unremarkable. NECK: Supple. Negative increase in JVD. Central trachea. CHEST: Clear to auscultation. CARDIOVASCULAR: S1 and S2 audible. Unable to hear any S3 gallop. ABDOMEN: Soft, nondistended. Mild to moderate tenderness mostly in the lower abdomen and some in the epigastric region. No rebound or guarding. No organomegaly. Positive bowel sounds. MUSCULOSKELETAL: Extremities no cyanosis or pedal edema appreciated. PIPE FITTER STRE[employer] SERVICE: Grossly intact. SKIN: Warm and dry. PSYCHIATRIC: Appropriate mood and affect. RECTAL: Examination deferred. LABORATORY DATA Investigations, CBC within normal limits. BMP shows potassium 3.3, BUN 5. Liver function tests shows AST 539, ALT 152, alkaline phosphatase 166. Total CK 298, CK-MB 5.8. CK-MB percent 1.9. Troponin less than 0.02. Total protein 9. Lactic acid 1.3. UA shows urine bacteria, mucus few, turbidity hazy. IMAGING Radiology data, thoracic spine CT was done which showed mild multilevel degenerative finding, no evidence of abscess. Lumbar spine CT was done which showed mild left-sided facet arthrosis at L2-L3, presacral soft tissue density, prominent retroperitoneal lymph node, and right-sided nonobstructive renal calculus as described on the abdominal and pelvic CT. Chest x-ray was done which showed no acute cardiopulmonary disease. CT angio was done which showed no evidence of pulmonary embolus. Mild patchy opacity in the right lower lobe indicating atelectasis versus minimal inflammatory change. No evidence of pulmonary consolidation. CT scan of the abdomen and pelvis was done which shows multiple mild to moderate enlarged retroperitoneal lymph nodes, most prominent in the para-aortic region of the abdomen. Lymph node have increased in size when compared to the prior history of January 2015. New presacral mass-like retroperitoneal soft tissue density. These findings are nonspecific and may represent reactive lymph node related to infection. Malignancy such as lymphoma also in the differential diagnosis. Moderate to severe hepatic steatosis. Non-obstructing right renal calculus. Left-sided uterine fundal fibroid again seen. No peripancreatic inflammatory changes are identified. EKG was done which showed sinus tachy at rate of 100 beats per minute without any acute ST-T wave changes. ASSESSMENT Fever, subjective, high-grade as per the patient. Within normal limit lactic acid, questionable etiology. PLAN 1. For 2-D echo. Followup with urine culture. At present the patient has no fever. We will monitor. If a high-grade fever or positive culture we will start antibiotic. 2. Abnormal presacral mass-like retroperitoneal soft tissue density with multiple mild to moderate enlarged retroperitoneal lymph nodes of questionable etiology. Plan for surgical consult. 3. Gastroesophageal reflux disease plus rectal prolapse with some bleeding. We will start PPI and also plan for GI consult. 4. Transaminitis secondary to chronic alcoholism. Counseling given to stop EtOH. Will keep the patient on a CIWA protocol. Also GI consult. Monitor LFTs. 5. Chronic nicotine abuse, counseled. 6. IV drug abuse, counseled. 7. Discussed with the patient and boyfriend at bedside in detail. They understood very well. See orders. Further recommendations to follow as per patient progress. Ross Haro MD JP/KK /4:12 PM /4:41 PM
[2016-09-22] MEDS: ONDANSETRON HCL 4 MG/2 ML VIAL IVP PRN (17:55)
[2016-09-22] MEDS ORDERED: MAGNESIUM CITRATE SOLN 300 ML BTL PO ONE ×2 (18:45→22:00)
[2016-09-22 19:51] LABS: FERRITIN 994 NG/ML (8-252); TRANSFERRIN IRON PROFILE 177 MG/DL (200-360)
[2016-09-22 19:58] LABS: ACETAMINOPHEN LESS THAN 2.0 MCG/ML (10.0-30.0)
[2016-09-22] MEDS: SODIUM CHLORIDE 0.9% FLUSH 5 ML FLUSH FLUSH SCH (21:00)
[2016-09-22] MEDS: VANCOMYCIN 1,000 MG/NS 250 ML IV SCH ×2 (21:50)
[2016-09-22 21:58] LABS: AMPHETAMINE, URINE NEG (NEG); BARBITURATES, URINE NEG (NEG); COCAINE, URINE NEG (NEG)
[2016-09-23] VITALS: BP 118/81; PULSE 89; RESP 16; TEMP 99.2; O2SAT 97
[2016-09-23] MEDS: PIPERACIL-TAZO 4.5 GM PREMIX 100 ML IV SCH ×4 (03:30→20:48)
[2016-09-23 04:00] VITALS: BP 129/82; PULSE 78; RESP 18; TEMP 99.3; O2SAT 96
[2016-09-23] MEDS: SODIUM CHLOR 0.9% 1000 ML INJ 1,000 ML IV SCH ×2 (06:56→08:07)
[2016-09-23 08:00] VITALS: BP 125/93; PULSE 76; RESP 16; TEMP 98.8; O2SAT 99
[2016-09-23] MEDS: ONDANSETRON HCL 4 MG/2 ML VIAL IVP PRN (08:05)
[2016-09-23] MEDS: VANCOMYCIN 1,000 MG/NS 250 ML IV SCH ×4 (08:05→20:49)
[2016-09-23] MEDS: SODIUM CHLORIDE 0.9% FLUSH 5 ML FLUSH FLUSH SCH ×2 (08:06→20:50)
[2016-09-23 08:41] LABS: AUTOMATED NEUTROPHIL # 2.3 TH/MM3 (1.8-7.7); BASOPHIL % 0.4 % (0.0-2.0); EOSINOPHIL # 0.1 TH/MM3 (0-0.4); EOSINOPHIL % 3.5 % (0.0-4.0); HEMATOCRIT 36.8 % (35.0-46.0); LYMPH % 16.3 % (9.0-44.0); LYMPHOCYTE # 0.6 TH/MM3 (1.0-4.8); MEAN CELL VOLUME 92.3 FL (80.0-100.0); MEAN CORPUSCULAR HEMOGLOBIN 31.5 PG (27.0-34.0); MEAN CORPUSCULAR HGB CONC 34.2 % (32.0-36.0); MONO % 13.1 % (0.0-8.0); NEUT % 66.7 % (16.0-70.0); PLATELET COUNT 80 TH/MM3 (150-450); RED BLOOD COUNT 3.99 MIL/MM3 (4.00-5.30); RED CELL DISTRIBUTION WIDTH 14.5 % (11.6-17.2); WHITE BLOOD COUNT 3.5 TH/MM3 (4.0-11.0)
[2016-09-23 09:20] LABS: ALKALINE PHOSPHATASE 148 U/L (45-117); ALT (GPT) 131 U/L (10-53); ANION GAP 9 MEQ/L (5-15); AST (GOT) 419 U/L (15-37); BICARBONATE 28.2 MEQ/L (21.0-32.0); BLOOD UREA NITROGEN 3 MG/DL (7-18); CHLORIDE 99 MEQ/L (98-107); GLOMERULAR FILTRATION RATE 96 ML/MIN (>89); POTASSIUM 3.8 MEQ/L (3.5-5.1); SODIUM (NA) 136 MEQ/L (136-145); TOTAL BILIRUBIN ADULT 0.8 MG/DL (0.2-1.0)
[2016-09-23] MEDS ORDERED: PROPOFOL 200 MG/20 ML AMP IV ONE (09:21)
[2016-09-23 09:27] LABS: HEMO FLAGS AUTO DIFF
[2016-09-23 09:28] LABS: PLATELET ESTIMATE SMEAR LOW (NORMAL); PLATELET MORPHOLOGY NORMAL (NORMAL); SCAN/DIFF AUTO DIFF CONFIRMED
--- NOTE | 2016-09-23 09:59 | HHI.GIFU ---
Subjective Remarks feels ok, worried about the finding on CT scan. no sign of bleed. very agitated. Objective Vitals I&O Vital Signs Date Time Temp Pulse Resp B/P Pulse Ox O2 Delivery O2 Flow Rate FiO2 09/23/16 09:45 98.4 62 16 122/91 97 09/23/16 08:00 98.8 76 16 125/93 99 09/23/16 04:00 99.3 78 18 129/82 96 09/23/16 00:00 99.2 89 16 118/81 97 09/22/16 20:35 64 09/22/16 20:00 98.5 68 16 114/65 99 09/22/16 16:29 98.6 82 19 130/101 97 09/22/16 16:08 78 09/22/16 14:28 Room Air 09/22/16 14:27 98.7 80 20 121/81 95 Room Air I/O 09/22/16 09/22/16 09/22/16 09/23/16 09/23/16 09/23/16 07:00 15:00 23:00 07:00 15:00 23:00 Intake Total 480 ml 0 ml Balance 480 ml 0 ml Intake Oral 480 ml 0 ml # Voids 1 3 # Bowel Movements 0 0 Laboratory Laboratory Tests Test 09/22/16 09/23/16 20:47 08:09 Tumor Marker Alpha Fetoprotein 1.8 White Blood Count 3.5 Red Blood Count 3.99 Hemoglobin 12.6 Hematocrit 36.8 Mean Corpuscular Volume 92.3 Mean Corpuscular Hemoglobin 31.5 Mean Corpuscular Hemoglobin 34.2 Concent Red Cell Distribution Width 14.5 Platelet Count 80 Mean Platelet Volume 7.9 Neutrophils (%) (Auto) 66.7 Lymphocytes (%) (Auto) 16.3 Monocytes (%) (Auto) 13.1 Eosinophils (%) (Auto) 3.5 Basophils (%) (Auto) 0.4 Neutrophils # (Auto) 2.3 Lymphocytes # (Auto) 0.6 Monocytes # (Auto) 0.5 Eosinophils # (Auto) 0.1 Basophils # (Auto) 0.0 CBC Comment AUTO DIFF Differential Comment AUTO DIFF CONFIRMED Platelet Estimate LOW Platelet Morphology Comment NORMAL Sodium Level 136 Potassium Level 3.8 Chloride Level 99 Carbon Dioxide Level 28.2 Anion Gap 9 Blood Urea Nitrogen 3 Creatinine 0.73 Estimat Glomerular Filtration 96 Rate Random Glucose 84 Calcium Level 7.7 Total Bilirubin 0.8 Aspartate Amino Transf 419 (AST/SGOT) Alanine Aminotransferase 131 (ALT/SGPT) Alkaline Phosphatase 148 Total Protein 7.7 Albumin 2.9 Date/Time Procedure Status Source Growth 09/22/16 06:55 Urine Culture Received Urine Clean Catch Pending 09/22/16 05:40 Aerobic Blood Culture Received Blood Peripheral Pending 09/22/16 05:40 Anaerobic Blood Culture Received Blood Peripheral Pending Physical Exam HEENT: Pupils round and reactive to light; normocephalic; atraumatic; no jaundice. Throat is clear. agitated NECK: Neck is supple, no JVD, no lymphadenopathy. CHEST: Chest is clear to auscultation and percussion. CARDIAC: Regular rate and rhythm with no murmur gallop or rubs. ABDOMEN: Soft, nondistended, nontender; no hepatosplenomegaly; bowel sounds are present in all four quadrants. EXTREMITIES: No clubbing, cyanosis, or edema. SKIN: Normal; no rash; no jaundice. 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 agitated Assessment and Plan Plan ASSESSMENT: - Abdominal pain. Abdomen/Pelvis CT (09/22/16)----> 1. Multiple mildly to moderately enlarged retroperitoneal lymph nodes, most prominent in the para- aortic region of the abdomen. The lymph nodes have increased in size when compared to the prior study of January 2015. New presacral masslike retroperitoneal soft tissue density. These findings are nonspecific and may represent reactive lymph nodes related to infection. Malignancy such as lymphoma also in the differential diagnosis. 2. Moderate to severe hepatic steatosis. 3. Nonobstructing right renal calculus. 4. Left-sided fundal uterine fibroid again seen. 5. No peripancreatic inflammatory changes identified. Surgery has seen the patient and would like us to evaluate endoscopically. He is planning for IR guided biopsy if able and medical oncology evaluation. Pt states that she has had intermittent abdominal pain on a daily basis x 6 years, no relation to food. No egd/colonoscopy. Will plan for egd/colonoscopy in am. - N/V. Pt reports daily n/v 10x a day with bilious material. No hx of PUD. Severe GERD. LFTs as above. Lipase 301. - Alternating constipation/diarrhea. EGD/Colonoscopy. - Transaminitis/Elevated LFTs. T. Bili 0.3, AST 539, ALT 152, Alk Phosph 166. She denies any known hx of liver disease and originally reported that she drinks 2 drinks per day, but upon further questioning, then reported that she drank 5-6 shots yesterday. She originally denied any Tylenol use, but under repeated questioning, states that she takes Lortab. She reports that she took 2 yesterday. There is no hx of known hepatitis and she denies any family hx of liver disease. However, when I left the room, her mother came out and said she is not being very forthcoming, but that she has a long history of ETOH abuse and has been seen in the past for elevated LFTs. She also reports that she has a long hx of IVDA, recently quit. Liver workup. Toxicology screen. - Abn. Imaging with retroperitoneal adenopathy. Multiple mildly to moderately enlarged retroperitoneal lymph nodes, most prominent in the para-aortic region of the abdomen. The lymph nodes have increased in size when compared to the prior study of January 2015. New presacral masslike retroperitoneal soft tissue density. These findings are nonspecific and may represent reactive lymph nodes related to infection vs. malignancy 2-20 17 feels ok, sever elevation of LFTs, most likely ETOH related, labs for elevated LFTs in progress. abnormal CT scan with lymph nodes enlargement, colonoscopy was normal, EGD sever gastropathy, most likely because of ETOH, Bx was done. diarrhea alternating with constipation, normal colonoscopy most likely IBS PLAN: - watch for DT - diet as tolerated - Cont. Abx - Protonix - Hepatitis profile pending - AFP level pending - DEBORAH, AMA, ASMA pending - Iron Saturation, Ferritin - Alpha 1 Antitrypsin, Ceruloplasmin pending - may need oncology consult for evaluation of enlarged lymph nodes. - Supportive care - Further recommendations to follow based on results of above Cyrus Salvador MD Sep 23, 2016 09:59
[2016-09-23 10:35] LABS: ANA SCREEN POS (NEG)
[2016-09-23 12:00] VITALS: BP 127/91; PULSE 69; RESP 16; TEMP 98.3; O2SAT 99
--- NOTE | 2016-09-23 12:28 | HHI.PR ---
Subjective Remarks Mild occasional shortness of breath when laying flat Alert Sitting up in bed Appetite fair Denies any further rectal bleeding Objective Objective Results - Vital Signs Date Time Temp Pulse Resp B/P Pulse Ox O2 Delivery O2 Flow Rate FiO2 09/23/16 10:05 60 18 130/97 100 09/23/16 09:54 59 16 120/86 99 09/23/16 09:45 98.4 62 16 122/91 97 09/23/16 08:00 98.8 76 16 125/93 99 09/23/16 04:00 99.3 78 18 129/82 96 09/23/16 00:00 99.2 89 16 118/81 97 09/22/16 20:35 64 09/22/16 20:00 98.5 68 16 114/65 99 09/22/16 16:29 98.6 82 19 130/101 97 09/22/16 16:08 78 09/22/16 14:28 Room Air 09/22/16 14:27 98.7 80 20 121/81 95 Room Air I/O 09/22/16 09/22/16 09/22/16 09/23/16 09/23/16 09/23/16 07:00 15:00 23:00 07:00 15:00 23:00 Intake Total 480 ml 0 ml 500 ml Balance 480 ml 0 ml 500 ml Intake Oral 480 ml 0 ml Other 500 ml # Voids 1 3 # Bowel Movements 0 0 Result Diagram: 09/23/16 0809 09/23/16 0809 ROS General: Fatigue (mild), Other (10 point ROS done. Notes some shortness of breath when lying flat mild fatigue. Negative for any further rectal bleeding. Other systems negative or unremarkable) Pulmonary: SOB (when lying flat on occasion) Physical Exam Physical Exam PHYSICAL EXAMINATION GENERAL: This is a slim, well-nourished female who appears to be in no acute distress while sitting up. She is alert and awake.. HEAD: Normocephalic without any lesion or mass noted. Facial features appear symmetric. OROPHARYNGEAL: Oropharynx without erythema or edema. NECK: Supple. No nuchal rigidity or lymphadenopathy. Trachea midline without deviation. CARDIAC: Regular rhythm, regular rate, S1 and S2 are heard. Murmur none; no gallops or rubs. LUNGS: Clear to auscultation bilaterally. No wheeze, no rhonchi or rale. No use of accessory muscles on inspiration or expiration. ABDOMEN: taut, active bowel sounds. EXTREMITIES: No edema. Pulses equal bilateral. No cyanosis. NEUROLOGICAL: Patient mood and affect appropriate. No focal deficit SKIN:Warm and moist Objective Remarks Feeling okay right now I guess A/P Assessment and Plan ASSESSMENT Fever, high-grade, unknown cause PLAN Monitor vital signs which will include any fever, currently afebrile For 2-D echo. Followup with urine culture, pending Abnormal presacral mass-like retroperitoneal soft tissue density with multiple mild to moderate enlarged retroperitoneal lymph nodes of questionable etiology. Plan for surgical consult. No further rectal bleeding today. Gastroesophageal reflux disease plus rectal prolapse, GI consult Transaminitis secondary to chronic alcoholism. Counseling given to stop EtOH. Chronic nicotine abuse, counseled. IV drug abuse, counseled. according to consult note patient will need HIV testing, upper and lower endoscopy and then eventually she will need a lymph node biopsy or removal of this pelvic mass as a biopsy. Will be seen per Hepa group. Dr. Haro and I saw today. Harmony Jarvis Sep 23, 2016 12:28
[2016-09-23] MEDS: PANTOPRAZOLE SOD 40 MG DELAYED RELEASE TAB PO SCH (12:36)
--- NOTE | 2016-09-23 15:38 | HHI.PR ---
Subjective Remarks Assuming care from [facility]ist. In brief the patient is a 25-year-old female with history of IV drug use who presented with rectal bleeding, questionable rectal prolapse versus hemorrhoids. Patient also reported subjective fevers and abdominal pain. The patient was admitted and abdominal CT revealed a presacral mass with enlarging retroperitoneal lymph nodes. Patient is seen in her room with her boyfriend. She reports some abdominal discomfort but otherwise no nausea or vomiting. She is concerned about the CT scan findings. Objective Vitals Vital Signs Date Time Temp Pulse Resp B/P Pulse Ox O2 Delivery O2 Flow Rate FiO2 09/23/16 12:00 98.3 69 16 127/91 99 09/23/16 10:05 60 18 130/97 100 09/23/16 09:54 59 16 120/86 99 09/23/16 09:45 98.4 62 16 122/91 97 09/23/16 08:00 98.8 76 16 125/93 99 09/23/16 04:00 99.3 78 18 129/82 96 09/23/16 00:00 99.2 89 16 118/81 97 09/22/16 20:35 64 09/22/16 20:00 98.5 68 16 114/65 99 09/22/16 16:29 98.6 82 19 130/101 97 09/22/16 16:08 78 I/O 09/22/16 09/22/16 09/22/16 09/23/16 09/23/16 09/23/16 07:00 15:00 23:00 07:00 15:00 23:00 Intake Total 480 ml 0 ml 500 ml Balance 480 ml 0 ml 500 ml Intake Oral 480 ml 0 ml Other 500 ml # Voids 1 3 # Bowel Movements 0 0 Result Diagram: 09/23/16 0809 09/23/16 0809 Imaging Last Impressions Abdomen/Pelvis CT 09/22/16 0646 Signed Impressions: Service Date/Time: Thursday, September 22, 2016 07:15 - CONCLUSION: 1. Multiple mildly to moderately enlarged retroperitoneal lymph nodes, most prominent in the para-aortic region of the abdomen. The lymph nodes have increased in size when compared to the prior study of January 2015. New presacral masslike retroperitoneal soft tissue density. These findings are nonspecific and may represent reactive lymph nodes related to infection. Malignancy such as lymphoma also in the differential diagnosis. 2. Moderate to severe hepatic steatosis. 3. Nonobstructing right renal calculus. 4. Left-sided fundal uterine fibroid again seen. 5. No peripancreatic inflammatory changes identified. Alex Mendez MD CT Angiography 09/22/1619 Signed Impressions: Service Date/Time: Thursday, September 22, 2016 07:15 - CONCLUSION: 1. No evidence of pulmonary embolus. 2. Mild patchy opacity in the left lower lobe indicating atelectasis versus minimal inflammatory change. No evidence of pulmonary consolidation Alex Mendez MD Chest X-Ray 09/22/1615 Signed Impressions: Service Date/Time: Thursday, September 22, 2016 05:16 - CONCLUSION: 1. No acute cardiopulmonary disease. Albino Hubbard MD Thoracic Spine CT 09/22/16 0000 Signed Impressions: Service Date/Time: Thursday, September 22, 2016 07:15 - CONCLUSION: Mild multilevel degenerative findings. No evidence of abscess. Alex Mendez MD Lumbar Spine CT 09/22/16 0000 Signed Impressions: Service Date/Time: Thursday, September 22, 2016 07:15 - CONCLUSION: Mild left-sided facet arthrosis at L2-3. Presacral soft tissue density, prominent retroperitoneal lymph nodes, and right-sided nonobstructing renal calculus as described on abdomen and pelvis CT report. Alex Mendez MD Objective Remarks GENERAL: This is a well-nourished, well-developed patient, in no apparent distress. CARDIOVASCULAR: Normal rate and regular rhythm without murmurs, gallops, or rubs. RESPIRATORY: Good respiratory efforts. Breath sounds equal and clear to auscultation bilaterally. GASTROINTESTINAL: Abdomen soft, nondistended, mildly tender to palpation diffusely. Normal active bowel sounds MUSCULOSKELETAL: Extremities without cyanosis, or edema. NEURO: Alert & Oriented x4 to person, place, time, situation. Moves all ext x4 PSYCH: Appropriate mood and affect. A/P Problem List: (1) Rectal bleeding ICD Code: K62.5 Status: Acute (2) Elevated liver enzymes ICD Code: R74.8 Status: Acute (3) Lymphadenopathy, retroperitoneal ICD Code: R59.0 Status: Acute (4) Pelvic mass ICD Code: R19.00 Status: Acute (5) Transaminitis ICD Code: R74.0 Status: Acute (6) IVDU (intravenous drug user) ICD Code: F19.90 Status: Acute Assessment and Plan 25-year-old female with: Rectal bleeding/Abdominal pain: ? Rectal prolapse per patient. GI following. S/ P EGD/Colonoscopy with findings of gastropathy likely secondary to alcoholism and internal hemorrhoids. On abdominal CT the patient also has enlarging retroperitoneal lymph nodes most prominent in the para-aortic region of the abdomen. There is also a new presacral masslike retroperitoneal soft tissue density. -Continue supportive care per GI, PPI. Alternating constipation and diarrhea likely secondary to IBS. - Patient currently on IV vanc and Zosyn. Will continue to monitor cultures for now given h/o IVDU. Retroperitoneal lymphadenopathy and presacral mass: CT scan reviewed as above. - Etiology unclear. Lymphoma on the differential. Reactive process also a possibility given her history of IV drug use. - General surgery following with plan for biopsy. - Consult medical oncology for assistance. History of IVDU: Patient denies current use. Cautious with narcotics. Patient was counseled. Tramadol PRN. Transaminitis: Likely secondary to alcohol abuse. GI following. Continue to trend. Tobacco abuse: Patient was counseled. GI prophylaxis: PPI. DVT PPx: SCDs. Patient is ambulatory. Thrombocytopenic. Jennifer Broderick MD Sep 23, 2016 15:38
[2016-09-23 16:00] VITALS: BP 118/81; PULSE 55; RESP 16; TEMP 98.2; O2SAT 97
--- NOTE | 2016-09-23 19:24 | PD.CAR.PN ---
CVT Progress Note Subjective/Hospital Course: 25-year-old female with the retroperitoneal para-aortic lymphadenopathy and the likelihood lymphatic mass in her pelvis Related symptoms of nausea vomiting weight loss and possible rectal bleeding Will proceed with laparoscopic biopsy in this lady once colonoscopy and upper endoscopy are done and serologic testing is completed, likely early this coming week Full consult dictated Thanks Ermelinda 09/23/16 Patient with the above noted the periaortic abdominal lymphadenopathy as well as a mesenteric pelvic area mass measuring about 4 cm in diameter again likely lymph nodes in the mesentery of the pelvis Patient is in the process of workup and when the medical workup is completed I' ll take patient to the operating room for laparoscopy and biopsy GI consult appreciated Oncology consult pending Objective: Vital Signs Date Time Temp Pulse Resp B/P Pulse Ox O2 Delivery O2 Flow Rate FiO2 09/23/16 16:00 98.2 55 16 118/81 97 09/23/16 12:00 98.3 69 16 127/91 99 09/23/16 10:05 60 18 130/97 100 09/23/16 09:54 59 16 120/86 99 09/23/16 09:45 98.4 62 16 122/91 97 09/23/16 08:00 98.8 76 16 125/93 99 09/23/16 04:00 99.3 78 18 129/82 96 09/23/16 00:00 99.2 89 16 118/81 97 09/22/16 20:35 64 09/22/16 20:00 98.5 68 16 114/65 99 Labs: Laboratory Tests Test 09/23/16 08:09 White Blood Count 3.5 TH/MM3 (4.0-11.0) Red Blood Count 3.99 MIL/MM3 (4.00-5.30) Hemoglobin 12.6 GM/DL (11.6-15.3) Hematocrit 36.8 % (35.0-46.0) Mean Corpuscular Volume 92.3 FL (80.0-100.0) Mean Corpuscular Hemoglobin 31.5 PG (27.0-34.0) Mean Corpuscular Hemoglobin 34.2 % Concent (32.0-36.0) Red Cell Distribution Width 14.5 % (11.6-17.2) Platelet Count 80 TH/MM3 (150-450) Mean Platelet Volume 7.9 FL (7.0-11.0) Neutrophils (%) (Auto) 66.7 % (16.0-70.0) Lymphocytes (%) (Auto) 16.3 % (9.0-44.0) Monocytes (%) (Auto) 13.1 % (0.0-8.0) Eosinophils (%) (Auto) 3.5 % (0.0-4.0) Basophils (%) (Auto) 0.4 % (0.0-2.0) Neutrophils # (Auto) 2.3 TH/MM3 (1.8-7.7) Lymphocytes # (Auto) 0.6 TH/MM3 (1.0-4.8) Monocytes # (Auto) 0.5 TH/MM3 (0-0.9) Eosinophils # (Auto) 0.1 TH/MM3 (0-0.4) Basophils # (Auto) 0.0 TH/MM3 (0-0.2) CBC Comment AUTO DIFF Differential Comment AUTO DIFF CONFIRMED Platelet Estimate LOW (NORMAL) Platelet Morphology Comment NORMAL (NORMAL) Sodium Level 136 MEQ/L (136-145) Potassium Level 3.8 MEQ/L (3.5-5.1) Chloride Level 99 MEQ/L (98-107) Carbon Dioxide Level 28.2 MEQ/L (21.0-32.0) Anion Gap 9 MEQ/L (5-15) Blood Urea Nitrogen 3 MG/DL (7-18) Creatinine 0.73 MG/DL (0.50-1.00) Estimat Glomerular Filtration 96 ML/MIN (>89) Rate Random Glucose 84 MG/DL (74-106) Calcium Level 7.7 MG/DL (8.5-10.1) Total Bilirubin 0.8 MG/DL (0.2-1.0) Aspartate Amino Transf 419 U/L (15-37) (AST/SGOT) Alanine Aminotransferase 131 U/L (10-53) (ALT/SGPT) Alkaline Phosphatase 148 U/L (45-117) Total Protein 7.7 GM/DL (6.4-8.2) Albumin 2.9 GM/DL (3.4-5.0) Result Diagram: 09/23/16 0809 09/23/16 0809 Zana Lee MD Sep 23, 2016 19:24
[2016-09-23 20:38] VITALS: PULSE 58
[2016-09-23] MEDS ORDERED: PHARMACY ORDERED LAB XX ONE (20:45)
[2016-09-23] MEDS: traMADol HCL 50 MG TAB PO PRN (20:48)
[2016-09-24] VITALS (10 sets, daily range): BP systolic 119–158; BP diastolic 66–106; PULSE 56–92; RESP 16–20; TEMP 97.5–98.9; O2SAT 93–98
[2016-09-24] MEDS: SODIUM CHLOR 0.9% 1000 ML INJ 1,000 ML IV SCH (02:19)
[2016-09-24] MEDS: traMADol HCL 50 MG TAB PO PRN ×2 (05:52→19:02)
[2016-09-24] MEDS: PIPERACIL-TAZO 4.5 GM PREMIX 100 ML IV SCH ×2 (05:53→08:28)
[2016-09-24] MEDS: LORazepam 2 MG/ML VIAL IV PUSH PRN ×2 (06:06→20:06)
[2016-09-24 07:15] LABS: HEMATOCRIT 34.9 % (35.0-46.0); MEAN CELL VOLUME 92.2 FL (80.0-100.0); MEAN CORPUSCULAR HEMOGLOBIN 30.9 PG (27.0-34.0); MEAN CORPUSCULAR HGB CONC 33.5 % (32.0-36.0); PLATELET COUNT 84 TH/MM3 (150-450); RED BLOOD COUNT 3.78 MIL/MM3 (4.00-5.30); RED CELL DISTRIBUTION WIDTH 14.1 % (11.6-17.2); WHITE BLOOD COUNT 3.3 TH/MM3 (4.0-11.0)
[2016-09-24 07:29] LABS: REVIEW FLAG FINAL
[2016-09-24 07:35] LABS: BICARBONATE 27.3 MEQ/L (21.0-32.0); POTASSIUM 3.2 MEQ/L (3.5-5.1)
[2016-09-24 07:37] LABS: INDIRECT BILIRUBIN 0.4 MG/DL (0.0-0.8); TOTAL BILIRUBIN ADULT 0.7 MG/DL (0.2-1.0)
--- NOTE | 2016-09-24 08:25 | MB ---
cc: MARCELINA GARDNER M.D. DATE OF CONSULTATION 09/23/2016 REASON FOR CONSULTATION Consult requested by [facility] physician regarding the retroperitoneal lymphadenopathy. HISTORY OF PRESENT ILLNESS This is a 25-year-old female. She is without any significant past medical history except that she has a history of alcoholism and an IV drug abuser. She came into the emergency room complaining of acute on chronic abdominal pain. She was also giving a history of something coming out from the rectum after the bowel movements and then it goes back in. She had a CAT scan of the abdomen and pelvis which showed multiple mild to moderately enlarged retroperitoneal lymph nodes most prominent in the para-aortic region of the abdomen. The lymph nodes have increased in size compared to the study from January 2015. Also there is a new presacral mass-like retroperitoneal soft tissue density noted. These findings are nonspecific and may represent a reactive lymph node related to the infection. Malignancy such as lymphoma also in the differential diagnosis. I have been asked to see the patient for evaluation of retroperitoneal lymphadenopathy. The patient has chronic abdominal pain going on for the last several years. She has not seen a coke worker or oncologist in the past that she knows of. She is complaining of low-grade fever on and off. She denies any weight loss. She denies any night sweats. She also had a CT angiogram of the chest which does not show any pulmonary embolism. There is no lymphadenopathy noted in the chest. Surgery was consulted and they have recommended GI to do upper endoscopy and colonoscopy and an HIV test. The patient underwent upper endoscopy and colonoscopy today. This showed that the colonoscopy was normal except that shows small internal hemorrhoids and no abnormalities of the rectum noted. The upper endoscopy shows severe gastropathy. Biopsies were done from the antrum, otherwise it was a normal upper endoscopy. The HIV test has been ordered; the results of that are still pending. The hepatitis screen also has been ordered and it came back negative. Liver enzymes were found to be elevated due to alcoholism. PAST MEDICAL HISTORY 1. Negative except alcoholism and polysubstance abuse with intravenous drug abuse. 2. Gastroesophageal reflux disease. PAST SURGICAL HISTORY D&C. ALLERGIES DARVOCET. MEDICATIONS Prior to the coming to the hospital were none except Tums over the counter. FAMILY HISTORY Maternal grandfather had non-Hodgkin's lymphoma. Maternal grandmother had uterine cancer. The patient does not know about her biological father. Her mother is alive and well. The patient has two sisters and a brother, all alive and well. The patient does not have any children. SOCIAL HISTORY The patient lives with a boyfriend. She drinks alcohol heavily, also abuses drugs. She does not smoke cigarettes. PHYSICAL EXAMINATION GENERAL: This is a well-developed, well-nourished white female in no apparent distress. VITAL SIGNS: Temperature 98.2, heart rate is 55, blood pressure 118/81, O2 saturation 97%. HEENT: PERRLA. EOMI. Anicteric. No oral lesions are noted. NECK: Supple. No lymphadenopathy noted. LUNGS: Clear. No wheezing, rhonchi or rales. HEART: Regular rate and rhythm. ABDOMEN: Soft, diffusely tender. EXTREMITIES: No pedal edema. NEUROLOGY: Awake, alert, oriented x 3. SKIN: No significant lesions are noted. The patient was examined in the presence of her boyfriend. ASSESSMENT Retroperitoneal lymphadenopathy. The differential is lymphoma versus reactive lymphadenopathy versus HIV lymphadenopathy if HIV comes back positive. PLAN I have reviewed her available records and I have discussed with the patient regarding the lymphadenopathy. She stated that her grandfather had non-Hodgkin's lymphoma. We discussed that lymphoma is in the differential diagnosis. I will ask Interventional Radiology for CT-guided core needle biopsy of the retroperitoneal lymphadenopathy for tissue diagnosis. The upper endoscopy and colonoscopy is essentially negative except that it shows severe gastritis and small internal hemorrhoids. No evidence of rectal prolapse noted on the colonoscopy. HIV has been ordered. The result is still pending. The patient has agreed to undergo a CT-guided core needle biopsy with interventional radiologist. Once we have the tissue diagnosis, then we will discussed with the patient regarding the treatment plan. Thank you for asking my opinion. MD ARNOLD Izquierdo/RUPALI /6:51 PM /8:06 AM DEANGELO
[2016-09-24] MEDS: PANTOPRAZOLE SOD 40 MG DELAYED RELEASE TAB PO SCH (08:28)
[2016-09-24] MEDS: VANCOMYCIN 1,000 MG/NS 250 ML IV SCH ×2 (08:28)
[2016-09-24] MEDS: SODIUM CHLORIDE 0.9% FLUSH 5 ML FLUSH FLUSH SCH ×2 (08:29→20:10)
--- NOTE | 2016-09-24 10:14 | PD.ONC.PN ---
Subjective Subjective Remarks Afebrile overnight. Patient resting comfortably with male embossing press operator apprentice at bedside. Complains of some chronic back pain, otherwise without complaint. Objective Data Date Time Temp Pulse Resp B/P Pulse Ox O2 Delivery O2 Flow Rate FiO2 09/24/16 04:00 98.9 60 18 158/106 98 09/24/16 00:00 98.3 56 18 125/86 94 09/23/16 20:38 58 09/23/16 16:00 98.2 55 16 118/81 97 09/23/16 12:00 98.3 69 16 127/91 99 09/24/16 09/24/16 09/24/16 07:00 15:00 23:00 Intake Total 892 ml Balance 892 ml Result Diagram: 09/24/1611 09/24/16616 Laboratory Results Laboratory Tests Test 09/23/16 09/24/16 09/24/16 20:45 06:11 06:17 Vancomycin Level Trough 7.0 MCG/ML White Blood Count 3.3 TH/MM3 Red Blood Count 3.78 MIL/MM3 Hemoglobin 11.7 GM/DL Hematocrit 34.9 % Mean Corpuscular Volume 92.2 FL Mean Corpuscular Hemoglobin 30.9 PG Mean Corpuscular Hemoglobin 33.5 % Concent Red Cell Distribution Width 14.1 % Platelet Count 84 TH/MM3 Mean Platelet Volume 8.4 FL Sodium Level 137 MEQ/L Potassium Level 3.2 MEQ/L Chloride Level 103 MEQ/L Carbon Dioxide Level 27.3 MEQ/L Anion Gap 7 MEQ/L Blood Urea Nitrogen 3 MG/DL Creatinine 0.61 MG/DL Estimat Glomerular Filtration 118 ML/MIN Rate Random Glucose 104 MG/DL Calcium Level 8.2 MG/DL Total Bilirubin 0.7 MG/DL Direct Bilirubin 0.3 MG/DL Indirect Bilirubin 0.4 MG/DL Aspartate Amino Transf 221 U/L (AST/SGOT) Alanine Aminotransferase 99 U/L (ALT/SGPT) Alkaline Phosphatase 122 U/L Total Protein 7.5 GM/DL Albumin 2.8 GM/DL Culture Results Microbiology Date/Time Procedure Status Source Growth 09/22/16 05:35 Aerobic Blood Culture - Preliminary Resulted Blood Peripheral NO GROWTH IN 1 DAY 09/22/16 05:35 Anaerobic Blood Culture - Preliminary Resulted Blood Peripheral NO GROWTH IN 1 DAY 09/22/16 05:40 Aerobic Blood Culture - Preliminary Resulted Blood Peripheral NO GROWTH IN 1 DAY 09/22/16 05:40 Anaerobic Blood Culture - Preliminary Resulted Blood Peripheral NO GROWTH IN 1 DAY 09/22/16 06:55 Urine Culture - Final Complete Urine Clean Catch <10,000 CFU/ML GRAM POSITIVE CURT Administered Medications Medications (Trade) Dose Ordered Sig/Naveed Route PRN Reason Start Time Stop Time Status Last Admin Dose Admin Sodium Chloride (NS 1000 ml Inj) 1,000 ml @ 100 mls/hr Q10H IV 09/22/16 10:19 09/24/16 02:19 IV Flush (NS Flush) 2 ml BID FLUSH 09/22/16 21:00 09/24/16 08:29 Ondansetron HCl (Zofran Inj) 4 mg Q6H PRN IVP NAUSEA OR VOMITING 09/22/16 10:30 09/23/16 08:05 Heparin Sodium (Porcine) (Heparin Inj) 5,000 units Q12H SQ 09/22/16 11:00 Hold 09/22/16 21:53 Lorazepam (Ativan Inj) 1 mg Q4H PRN IV PUSH CIWA 8 - 10 09/22/16 10:30 09/24/16 06:06 Tramadol HCl 50 mg 50 mg Q6H PRN PO PAIN SCALE 6 TO 10 09/22/16 10:30 09/24/16 05:52 Piperacillin Sod/ Tazobactam Sod 100 ml @ 200 mls/hr Q6H IV 09/22/16 15:00 09/24/16 08:28 Vancomycin HCl/ Sodium Chloride (Vancomycin Inj/ NS 250 ml Inj) 250 ml @ 250 mls/hr Q12H IV 09/22/16 21:00 09/24/16 08:28 Pantoprazole Sodium (Protonix) 40 mg DAILY PO 09/23/16 11:00 09/24/16 08:28 Objective Remarks GENERAL: Young woman, lying in bed resting. SKIN: Warm and dry. HEAD: Normocephalic. EYES: No scleral icterus. No injection or drainage. NECK: Supple, trachea midline CARDIOVASCULAR: Regular rate and rhythm RESPIRATORY: Breath sounds equal bilaterally. No accessory muscle use. GASTROINTESTINAL: Abdomen soft, non-tender, nondistended. EXTREMITIES: No cyanosis NEUROLOGICAL: No obvious focal deficit. Awake, alert, and oriented x3. Assessment/Plan Problem List: (1) Lymphadenopathy, retroperitoneal Status: Acute Plan: 09/24/16: await biopsy. --EGD + colonoscopy: showed only small internal hemorrhoids and no abnormalities of the rectum noted. + severe gastropathy. B --HIV pending --Hepatitis panel negative --differential is lymphoma versus reactive lymphadenopathy versus HIV lymphadenopathy (if HIV returns positive) --CT biopsy for LAD pending Assessment 25y/o female with retroperitoneal LAD, lymphoma suspected. w/u in progress history of alcoholism and an IV drug abuse. Attending Statement no new c/o d/w IR in the morning. s/p Bx of LN , path is pending. HIV is negative. reactive vs neoplastic LAD. will follow The exam, history, and the medical decision-making described in the above note were completed with the assistance of the mid-level provider. I reviewed and agree with the findings presented. I attest that I had a [id number] encounter with the patient on the same day, and personally performed and documented my assessment and findings in the medical record. Lanie Barone Sep 24, 2016 10:14 Ila Fabian MD Sep 24, 2016 20:52
--- NOTE | 2016-09-24 12:11 | EC ---
Study Study Date:09/23/2016 STUDY CONCLUSIONS SUMMARY LEFT VENTRICLE: The cavity size was normal. Wall thickness was normal. Systolic function was normal. The estimated ejection fraction was in the range of 60% to 65%. Wall motion was normal; there were no regional wall motion abnormalities. Impressions: No evidence of endocarditis. If LV function is below 40, please consider prescribing an ACEI or ARB or document rationale for non-use. PROCEDURE DATA STUDY STATUS: Elective. Procedure: Transthoracic echocardiography. Image quality was good. Scanning was performed from the parasternal, apical, and subcostal acoustic windows. Study completion: The patient tolerated the procedure well. Transthoracic echocardiography. M-mode, complete 2D, complete spectral Doppler, and color Doppler. Height: Height: 65in. Weight: Weight: 120.7lb. Body mass index: BMI: 20.1kg/m^2. Body surface area: BSA: 1.6m^2. Patient status: Inpatient. CARDIAC ANATOMY LEFT VENTRICLE: The cavity size was normal. Wall thickness was normal. Systolic function was normal. The estimated ejection fraction was in the range of 60% to 65%. Wall motion was normal; there were no regional wall motion abnormalities. AORTIC VALVE: Trileaflet; normal thickness leaflets. Doppler: Transvalvular velocity was within the normal range. There was no stenosis. No regurgitation. Indexed valve area: 1.28cm^2/m^2 (Vmax). AORTA: Aortic root: The aortic root was normal in size. MITRAL VALVE: Structurally normal valve. Doppler: Transvalvular velocity was within the normal range. There was no evidence for stenosis. No regurgitation. Peak gradient: 2mm Hg (D). LEFT ATRIUM: The atrium was normal in size. RIGHT VENTRICLE: The cavity size was normal. Wall thickness was normal. PULMONIC VALVE: Doppler: Transvalvular velocity was within the normal range. There was no evidence for stenosis. No regurgitation. TRICUSPID VALVE: Structurally normal valve. Doppler: Transvalvular velocity was within the normal range. No regurgitation. PULMONARY ARTERY: The main pulmonary artery was normal-sized. Systolic pressure was within the normal range. RIGHT ATRIUM: The atrium was normal in size. PERICARDIUM: There was no pericardial effusion. SYSTEMIC VEINS: Inferior vena cava: The vessel was normal in size. Patient weight: 120.7lb _Ejection fraction:_ 65-75% _Fractional shortening:_ 32% up to 5Kg 5-11.5Kg 11.6-22.9Kg 23-45Kg 45-57Kg Aortic Root 7-13 <17 13-22 17-27 17-27 LA diam 6-13 <23 24-38 33-47 37-40 RVID 10-17 7-15 7-15 7-18 8-17 LVIDd 12-22 <32 24-38 33-47 37-40 LVPW 2-4 3-6 5-7 6-8 7-8 IVS 2-4 3-6 5-7 6-8 7-8 BASIC MEASUREMENTS ADULT NORMAL Left ventricle LV internal dimension, ED, chordal 44.7 mm 43-52 level, PLAX LV internal dimension, ES, chordal 30.2 mm 23-38 level, PLAX Fractional shortening, chordal level, 32 % >29 PLAX LV posterior wall thickness, ED 6.58 mm IVS/LVPW ratio, ED 1.05 <1.3 Ventricular septum Septal thickness, ED 6.91 mm Aortic valve Leaflet separation 19 mm 15-26 BASIC MEASUREMENTS ADULT NORMAL Aortic valve Leaflet separation 19 mm 15-26 Aorta Root diameter, ED 24 mm 20-37 Left atrium Anterior-posterior dimension, ES 27 mm 19-40 Anterior-posterior dimension index, ES 1.69 cm/m^2 <2.2 LA/aortic root ratio 1.13 DOPPLER MEASUREMENTS ADULT NORMAL Aortic valve Peak velocity, S 109 cm/s Valve area index, Vmax 1.28 cm^2/m^2 Mitral valve Peak E-wave velocity 75.5 cm/s Peak A-wave velocity 42.4 cm/s Deceleration time 201 ms 150-230 Peak gradient, D 2 mm Hg Peak E/A ratio 1.8 Pulmonic valve Peak velocity, S 103 cm/s LEGEND: Mean values are shown as u=mean value. Asterisk (*) gilbert values outside specified normal range. Prepared and signed by Bird Payton [id number]
[2016-09-24] MEDS ORDERED: LIDOCAINE 1%/EPINEPHrine 1:100,000 SOLN 20 ML VIAL ONE (13:44)
--- NOTE | 2016-09-24 13:55 | HHI.PR ---
Subjective Remarks Feeling OK. Abdominal pain is controlled. No nausea or vomiting. Laying in bed with boyfriend. Objective Vitals Vital Signs Date Time Temp Pulse Resp B/P Pulse Ox O2 Delivery O2 Flow Rate FiO2 09/24/16 04:00 98.9 60 18 158/106 98 09/24/16 00:00 98.3 56 18 125/86 94 09/23/16 20:38 58 09/23/16 16:00 98.2 55 16 118/81 97 I/O 09/23/16 09/23/16 09/23/16 09/24/16 09/24/16 09/24/16 07:00 15:00 23:00 07:00 15:00 23:00 Intake Total 0 ml 740 ml 932 ml 892 ml Balance 0 ml 740 ml 932 ml 892 ml Intake Oral 0 ml 240 ml 240 ml 240 ml IV Total 692 ml 652 ml Other 500 ml # Voids 3 6 2 2 # Bowel Movements 0 1 1 0 Result Diagram: 09/24/16 0611 09/24/16 0617 Objective Remarks GENERAL: This is a well-nourished, well-developed patient, in no apparent distress. CARDIOVASCULAR: Normal rate and regular rhythm without murmurs, gallops, or rubs. RESPIRATORY: Good respiratory efforts. Breath sounds equal and clear to auscultation bilaterally. GASTROINTESTINAL: Abdomen soft, nondistended, mildly tender to palpation diffusely. Normal active bowel sounds MUSCULOSKELETAL: Extremities without cyanosis, or edema. NEURO: Alert & Oriented x4 to person, place, time, situation. Moves all ext x4 PSYCH: Appropriate mood and affect. A/P Problem List: (1) Rectal bleeding ICD Code: K62.5 Status: Acute (2) Elevated liver enzymes ICD Code: R74.8 Status: Acute (3) Lymphadenopathy, retroperitoneal ICD Code: R59.0 Status: Acute (4) Pelvic mass ICD Code: R19.00 Status: Acute (5) Transaminitis ICD Code: R74.0 Status: Acute (6) IVDU (intravenous drug user) ICD Code: F19.90 Status: Acute Assessment and Plan 25-year-old female with: Rectal bleeding/Abdominal pain: ? Rectal prolapse per patient. GI following. S/ P EGD/Colonoscopy with findings of gastropathy likely secondary to alcoholism and internal hemorrhoids. On abdominal CT the patient also has enlarging retroperitoneal lymph nodes most prominent in the para-aortic region of the abdomen. There is also a new presacral masslike retroperitoneal soft tissue density. - Continue supportive care per GI, PPI. Alternating constipation and diarrhea likely secondary to IBS. - Patient has been on IV vanc and Zosyn. All cultures so far neg. Echo neg for endocarditis. Will DC antibiotics and monitor. Retroperitoneal lymphadenopathy and presacral mass: CT scan reviewed as above. - Etiology unclear. Lymphoma on the differential. Reactive process also a possibility given her history of IV drug use. - General surgery following - Medical oncology following. IR consulted for biopsy History of IVDU: Patient denies current use. Cautious with narcotics. Patient was counseled. Tramadol PRN. Still exhibiting narcotic and benzo seeking behavior. Transaminitis: Likely secondary to alcohol abuse. GI following. Continue to trend. Tobacco abuse: Patient was counseled. CIWA per protocol. GI prophylaxis: PPI. DVT PPx: SCDs. Patient is ambulatory. Thrombocytopenic. Jennifer Broderick MD Sep 24, 2016 13:55
[2016-09-24 14:54] LABS: INTERNATIONAL NORMALIZED RATIO 1.1 RATIO; PROTHROMBIN TIME - PATIENT 11.9 SEC (9.8-11.6)
[2016-09-24] MEDS ORDERED: HYDROmorphone HCL PF 2 MG/ML VIAL ONE (15:08)
[2016-09-24] MEDS ORDERED: MIDAZOLAM HCL 2 MG/2 ML VIAL ONE (15:18)
--- NOTE | 2016-09-24 16:20 | RADRPT ---
EXAM DATE/TIME: 09/24/2016 15:10 [facility] COMPARISON: CT ABDOMEN & PELVIS W CONTRAST, January 28, 2015, 5:10. CT ABDOMEN & PELVIS W CONTRAST, September 22 17, 7:15. INDICATIONS : Periaortic lymphadenopathy SEDATION TIME: 30 minutes BIOPSY SITE: Left periaortic lymph node MEDICATION(S): 1.) 2 mg midazolam (Versed) IV 2.) 200 mcg fentanyl (Sublimaze) IV 3.) 2 mg hydromorphone (Dilaudid) IV 4.) 2 mg lorazepam (Ativan) IV DEVICE(S): 1.) 18 gauge Temno core biopsy needle MEDICAL HISTORY : None. SURGICAL HISTORY : None. ENCOUNTER: Initial ACUITY: 1 day PAIN SCORE: 0/10 LOCATION: Left flank A total of seven core specimen(s) were obtained and sent to the laboratory for pathologic evaluation. PROCEDURE: 1. CT guided lymph node biopsy. 2. Conscious sedation with continuous EKG and oximetry monitoring. 3. EKG and oximetry remained stable throughout the procedure. Prior to the procedure informed consent was obtained. The patient's prior abdomen and pelvis CT exami nations were reviewed. The site was prepped in a sterile fashion. Full sterile technique was used, including cap, mask, antonieta rile gloves and gown and a large sterile sheet. Hand hygiene and 2% chlorhexidine and/or betadine/al cohol prep was utilized per protocol for cutaneous antisepsis. The skin and subcutaneous tissues wer e infiltrated with local anesthetic solution. With CT guidance the lymphadenopathy in the left periaortic location was localized. Biopsy was perfor med using the prescribed needle as above. Only small samples could be obtained. Adequate hemostasis was obtained with compression at the puncture site. Follow-up CT scan reveals no hemorrhage or acute abnormality. However, there is fluid density materia l adjacent to the left psoas muscle in the retroperitoneum. The patient tolerated the procedure well and there were no complications. The patient was returned to the Radiology Outpatient Unit in stable condition. CONCLUSION: Uncomplicated CT guided biopsy of the left periaortic lymphadenopathy inferior to the left renal vein . Only small samples were able to be obtained. Colin Beck MD on September 24, 2016 at 16:17 Board Certified Radiologist. This report was verified electronically.
--- NOTE | 2016-09-24 16:58 | HHI.GIFU ---
GI Follow-up Note Consult Follow-up Pt off floor for biopsy. Entered by: Amber Mathew Sep 24, 2016 16:58
--- NOTE | 2016-09-24 19:08 | PD.CAR.PN ---
CVT Progress Note Subjective/Hospital Course: 25-year-old female with the retroperitoneal para-aortic lymphadenopathy and the likelihood lymphatic mass in her pelvis Related symptoms of nausea vomiting weight loss and possible rectal bleeding Will proceed with laparoscopic biopsy in this lady once colonoscopy and upper endoscopy are done and serologic testing is completed, likely early this coming week Full consult dictated Thanks Ermelinda 09/23/16 Patient with the above noted the periaortic abdominal lymphadenopathy as well as a mesenteric pelvic area mass measuring about 4 cm in diameter again likely lymph nodes in the mesentery of the pelvis Patient is in the process of workup and when the medical workup is completed I' ll take patient to the operating room for laparoscopy and biopsy GI consult appreciated Oncology consult pending 09/24/2016 Patient with retroperitoneal lymphadenopathy underwent today CT-guided biopsy of the same Will await further results of these and this is sufficient material patient will not need surgical approach On the other hand if the material is insufficient to make the diagnosis will go ahead with laparoscopic surgery if necessary Will await for the pathology findings first Objective: Vital Signs Date Time Temp Pulse Resp B/P Pulse Ox O2 Delivery O2 Flow Rate FiO2 09/24/16 17:15 63 18 122/70 96 09/24/16 16:55 68 16 123/81 93 09/24/16 16:25 71 18 138/88 94 09/24/16 16:13 97.8 72 18 127/83 95 09/24/16 12:00 98.2 58 20 157/106 98 09/24/16 04:00 98.9 60 18 158/106 98 09/24/16 00:00 98.3 56 18 125/86 94 09/23/16 20:38 58 Labs: Laboratory Tests Test 09/24/16 14:30 Prothrombin Time 11.9 SEC (9.8-11.6) Prothromb Time International 1.1 RATIO Ratio Result Diagram: 09/24/16 0611 09/24/16 0617 Zana Lee MD Sep 24, 2016 19:08
[2016-09-24] MEDS ORDERED: PHARMACY ORDERED LAB XX ONE (20:45)
[2016-09-25] VITALS (7 sets, daily range): BP systolic 109–129; BP diastolic 80–94; PULSE 68–120; RESP 16–18; TEMP 97.8–99.3; O2SAT 94–97
[2016-09-25] MEDS: PANTOPRAZOLE SOD 40 MG DELAYED RELEASE TAB PO SCH (08:27)
[2016-09-25] MEDS: traMADol HCL 50 MG TAB PO PRN (08:28)
[2016-09-25] MEDS: SODIUM CHLORIDE 0.9% FLUSH 5 ML FLUSH FLUSH SCH ×2 (08:28→21:00)
[2016-09-25 11:00] LABS: BASOPHIL % 0.8 % (0.0-2.0); EOSINOPHIL # 0.2 TH/MM3 (0-0.4); EOSINOPHIL % 3.9 % (0.0-4.0); HEMATOCRIT 38.4 % (35.0-46.0); HEMO FLAGS DIFF FINAL; LYMPH % 19.5 % (9.0-44.0); LYMPHOCYTE # 0.9 TH/MM3 (1.0-4.8); MEAN CELL VOLUME 92.9 FL (80.0-100.0); MEAN CORPUSCULAR HEMOGLOBIN 31.1 PG (27.0-34.0); MEAN CORPUSCULAR HGB CONC 33.5 % (32.0-36.0); MONO % 13.2 % (0.0-8.0); NEUT % 62.6 % (16.0-70.0); PLATELET COUNT 156 TH/MM3 (150-450); RED BLOOD COUNT 4.14 MIL/MM3 (4.00-5.30); RED CELL DISTRIBUTION WIDTH 14.5 % (11.6-17.2); WHITE BLOOD COUNT 4.8 TH/MM3 (4.0-11.0)
--- NOTE | 2016-09-25 11:16 | PD.ONC.PN ---
Subjective Subjective Remarks Afebrile overnight. Patient denies pain. She is very anxious to know results of biopsy pathology. she has multiple questions about her lab results. Objective Data Date Time Temp Pulse Resp B/P Pulse Ox O2 Delivery O2 Flow Rate FiO2 09/25/16 08:15 85 09/25/16 08:00 98.8 68 18 123/94 96 09/25/16 04:00 98.9 97 18 129/90 96 09/25/16 00:26 97.8 90 16 109/82 95 09/24/16 20:23 92 09/24/16 20:00 98.2 68 16 119/81 96 09/24/16 17:15 63 18 122/70 96 09/24/16 16:55 68 16 123/81 93 09/24/16 16:25 71 18 138/88 94 09/24/16 16:13 97.8 72 18 127/83 95 09/24/16 16:00 97.5 68 20 147/66 98 09/24/16 12:00 98.2 58 20 157/106 98 09/25/16 09/25/16 09/25/16 07:00 15:00 23:00 Intake Total 2 ml Balance 2 ml Result Diagram: 09/24/16 0611 09/25/16 0740 Laboratory Results Laboratory Tests Test 09/24/16 09/25/16 14:30 07:40 Prothrombin Time 11.9 SEC Prothromb Time International 1.1 RATIO Ratio Creatinine 0.66 MG/DL Estimat Glomerular Filtration 107 ML/MIN Rate Imaging Studies Last 24 hours Impressions Lymph Node Biopsy CT 09/24/16 1341 Signed Impressions: Service Date/Time: Saturday, September 24, 2016 15:10 - CONCLUSION: Uncomplicated CT guided biopsy of the left periaortic lymphadenopathy inferior to the left renal vein. Only small samples were able to be obtained. Colin Beck MD Administered Medications Medications (Trade) Dose Ordered Sig/Naveed Route PRN Reason Start Time Stop Time Status Last Admin Dose Admin IV Flush (NS Flush) 2 ml BID FLUSH 09/22/16 21:00 09/24/16 20:10 Ondansetron HCl (Zofran Inj) 4 mg Q6H PRN IVP NAUSEA OR VOMITING 09/22/16 10:30 09/23/16 08:05 Heparin Sodium (Porcine) (Heparin Inj) 5,000 units Q12H SQ 09/22/16 11:00 Hold 09/22/16 21:53 Lorazepam (Ativan) 1 mg Q4H PRN PO CIWA 8 - 10 09/22/16 10:30 09/25/16 02:45 Lorazepam (Ativan Inj) 1 mg Q4H PRN IV PUSH CIWA 8 - 10 09/22/16 10:30 09/24/16 20:06 Lorazepam (Ativan Inj) 2 mg Q2H PRN IV PUSH CIWA 11-14 09/22/16 10:30 09/24/16 15:18 Tramadol HCl (Ultram) 50 mg Q6H PRN PO PAIN SCALE 6 TO 10 09/22/16 10:30 09/25/16 08:28 Pantoprazole Sodium (Protonix) 40 mg DAILY PO 09/23/16 11:00 09/25/16 08:27 Objective Remarks GENERAL: Young woman, sitting upright in bed in [facility]. SKIN: Warm and dry. band-aid on back with a drop of blood on it. No hematoma or ecchymoses observed. HEAD: Normocephalic. EYES: No scleral icterus. No injection or drainage. NECK: Supple, trachea midline CARDIOVASCULAR: Regular rate and rhythm RESPIRATORY: Breath sounds equal bilaterally. No accessory muscle use. GASTROINTESTINAL: Abdomen soft, non-tender, nondistended. EXTREMITIES: No cyanosis NEUROLOGICAL: No obvious focal deficit. Awake, alert, and oriented x3. Assessment/Plan Problem List: (1) Lymphadenopathy, retroperitoneal Status: Acute Plan: 09/25/16: s/p core biopsy yesterday. await pathology. I reviewed the patients lab results with her and at her request, her quality control manager as well. --EGD + colonoscopy: showed only small internal hemorrhoids and no abnormalities of the rectum noted. + severe gastropathy. B --HIV pending --Hepatitis panel negative --differential is lymphoma versus reactive lymphadenopathy versus HIV lymphadenopathy (if HIV returns positive) --CT biopsy for LAD pending Assessment 25y/o female with retroperitoneal LAD, lymphoma suspected. w/u in progress history of alcoholism and an IV drug abuse. Attending Statement no c/o Path = nondiagnostic. d/w pt and parents about two options 1) Lap bx of LN 2) Repeat CT 3-6 months to evaluate for progression They will think about it and will d/w the surgeon i d/w Dr Wadsworth The exam, history, and the medical decision-making described in the above note were completed with the assistance of the mid-level provider. I reviewed and agree with the findings presented. I attest that I had a [id number] encounter with the patient on the same day, and personally performed and documented my assessment and findings in the medical record. Lanie Barone Sep 25, 2016 11:16 Ila Fabian MD Sep 25, 2016 18:32
--- NOTE | 2016-09-25 13:35 | HHI.PR ---
Subjective Remarks Patient lost IV access, she would like to keep the IV. She has no complaints otherwise her pain is controlled. She is dressed and walking around in the room. Inquiring about her biopsy results. Objective Vitals Vital Signs Date Time Temp Pulse Resp B/P Pulse Ox O2 Delivery O2 Flow Rate FiO2 09/25/16 12:00 99.3 80 18 123/94 97 09/25/16 08:15 85 09/25/16 08:00 98.8 68 18 123/94 96 09/25/16 04:00 98.9 97 18 129/90 96 09/25/16 00:26 97.8 90 16 109/82 95 09/24/16 20:23 92 09/24/16 20:00 98.2 68 16 119/81 96 09/24/16 17:15 63 18 122/70 96 09/24/16 16:55 68 16 123/81 93 09/24/16 16:25 71 18 138/88 94 09/24/16 16:13 97.8 72 18 127/83 95 09/24/16 16:00 97.5 68 20 147/66 98 I/O 09/24/16 09/24/16 09/24/16 09/25/16 09/25/16 09/25/16 07:00 15:00 23:00 07:00 15:00 23:00 Intake Total 892 ml 0 ml 362 ml 2 ml Balance 892 ml 0 ml 362 ml 2 ml Intake Oral 240 ml 0 ml 360 ml IV Total 652 ml 2 ml 2 ml # Voids 2 5 2 # Bowel Movements 0 Result Diagram: 09/25/16 1027 09/25/16 0740 Objective Remarks GENERAL: This is a well-nourished, well-developed patient, in no apparent distress. CARDIOVASCULAR: Normal rate and regular rhythm without murmurs RESPIRATORY: Good respiratory efforts. Breath sounds equal and clear to auscultation bilaterally. GASTROINTESTINAL: Abdomen soft, nondistended, mildly tender to palpation diffusely per patient. Normal active bowel sounds MUSCULOSKELETAL: Extremities without cyanosis, or edema. PSYCH: Appropriate mood and affect. A/P Problem List: (1) Rectal bleeding ICD Code: K62.5 Status: Acute (2) Elevated liver enzymes ICD Code: R74.8 Status: Acute (3) Lymphadenopathy, retroperitoneal ICD Code: R59.0 Status: Acute (4) Pelvic mass ICD Code: R19.00 Status: Acute (5) Transaminitis ICD Code: R74.0 Status: Acute (6) IVDU (intravenous drug user) ICD Code: F19.90 Status: Acute Assessment and Plan 25-year-old female with: Rectal bleeding/Abdominal pain: ? Rectal prolapse per patient. GI following. S/ P EGD/Colonoscopy with findings of gastropathy likely secondary to alcoholism and internal hemorrhoids. On abdominal CT the patient also has enlarging retroperitoneal lymph nodes most prominent in the para-aortic region of the abdomen. There is also a new presacral masslike retroperitoneal soft tissue density. - Continue supportive care per GI, PPI. Alternating constipation and diarrhea likely secondary to IBS. - Patient has been on IV vanc and Zosyn. All cultures so far neg. Echo neg for endocarditis. Antibiotics discontinued yesterday. Continue to monitor off antibiotics. Retroperitoneal lymphadenopathy and presacral mass: CT scan reviewed as above. - Etiology unclear. Lymphoma on the differential. Reactive process also a possibility given her history of IV drug use. - General surgery following. Status post CT-guided biopsy which was nondiagnostic. General surgery to follow regarding possible laparoscopic procedure for biopsy and/or excision. - Medical oncology following. History of IVDU: Patient denies current use. Cautious with narcotics. Patient was counseled. Tramadol PRN. Transaminitis: Likely secondary to alcohol abuse. GI following. Continue to trend. Tobacco abuse: Patient was counseled. CIWA per protocol. GI prophylaxis: PPI. DVT PPx: SCDs. Patient is ambulatory. Thrombocytopenic. Jennifer Broderick MD Sep 25, 2016 13:35
--- NOTE | 2016-09-25 16:57 | HHI.GIFU ---
Subjective Remarks Feels better, still has C/O fatigue,found to have retroperitoneal lymphadenopathy, had CT guided Bx done yesterday Objective Vitals I&O Vital Signs Date Time Temp Pulse Resp B/P Pulse Ox O2 Delivery O2 Flow Rate FiO2 09/25/16 12:00 99.3 80 18 123/94 97 09/25/16 08:15 85 09/25/16 08:00 98.8 68 18 123/94 96 09/25/16 04:00 98.9 97 18 129/90 96 09/25/16 00:26 97.8 90 16 109/82 95 09/24/16 20:23 92 09/24/16 20:00 98.2 68 16 119/81 96 09/24/16 17:15 63 18 122/70 96 09/24/16 16:55 68 16 123/81 93 I/O 09/24/16 09/24/16 09/24/16 09/25/16 09/25/16 09/25/16 06:59 14:59 22:59 06:59 14:59 22:59 Intake Total 892 ml 0 ml 362 ml 2 ml 0 ml Balance 892 ml 0 ml 362 ml 2 ml 0 ml Intake Oral 240 ml 0 ml 360 ml IV Total 652 ml 2 ml 2 ml 0 ml # Voids 2 5 2 # Bowel Movements 0 Laboratory Laboratory Tests Test 09/25/16 09/25/16 07:40 10:27 Creatinine 0.66 Estimat Glomerular Filtration 107 Rate White Blood Count 4.8 Red Blood Count 4.14 Hemoglobin 12.9 Hematocrit 38.4 Mean Corpuscular Volume 92.9 Mean Corpuscular Hemoglobin 31.1 Mean Corpuscular Hemoglobin 33.5 Concent Red Cell Distribution Width 14.5 Platelet Count 156 Mean Platelet Volume 8.4 Neutrophils (%) (Auto) 62.6 Lymphocytes (%) (Auto) 19.5 Monocytes (%) (Auto) 13.2 Eosinophils (%) (Auto) 3.9 Basophils (%) (Auto) 0.8 Neutrophils # (Auto) 3.0 Lymphocytes # (Auto) 0.9 Monocytes # (Auto) 0.6 Eosinophils # (Auto) 0.2 Basophils # (Auto) 0.0 CBC Comment DIFF FINAL Differential Comment Date/Time Procedure Status Source Growth 09/22/16 06:55 Urine Culture - Final Complete Urine Clean Catch <10,000 CFU/ML GRAM POSITIVE CURT 09/22/16 05:40 Aerobic Blood Culture - Preliminary Resulted Blood Peripheral NO GROWTH IN 3 DAYS 09/22/16 05:40 Anaerobic Blood Culture - Preliminary Resulted Blood Peripheral NO GROWTH IN 3 DAYS Imaging Last 48 hours Impressions Lymph Node Biopsy CT 09/24/16 1341 Signed Impressions: Service Date/Time: Saturday, September 24, 2016 15:10 - CONCLUSION: Uncomplicated CT guided biopsy of the left periaortic lymphadenopathy inferior to the left renal vein. Only small samples were able to be obtained. Colin Beck MD Physical Exam HEENT: Pupils round and reactive to light; normocephalic; atraumatic; no jaundice. Throat is clear. agitated NECK: Neck is supple, no JVD, no lymphadenopathy. CHEST: Chest is clear to auscultation and percussion. CARDIAC: Regular rate and rhythm with no murmur gallop or rubs. ABDOMEN: Soft, nondistended, nontender; no hepatosplenomegaly; bowel sounds are present in all four quadrants. EXTREMITIES: No clubbing, cyanosis, or edema. SKIN: Normal; no rash; no jaundice. SUPPLY CRIB ATTENDANT: No focal deficits; alert and oriented times three. agitated Assessment and Plan Plan ASSESSMENT: - Abdominal pain. Abdomen/Pelvis CT (09/22/16)----> 1. Multiple mildly to moderately enlarged retroperitoneal lymph nodes, most prominent in the para- aortic region of the abdomen. The lymph nodes have increased in size when compared to the prior study of January 2015. New presacral masslike retroperitoneal soft tissue density. These findings are nonspecific and may represent reactive lymph nodes related to infection. Malignancy such as lymphoma also in the differential diagnosis. 2. Moderate to severe hepatic steatosis. 3. Nonobstructing right renal calculus. 4. Left-sided fundal uterine fibroid again seen. 5. No peripancreatic inflammatory changes identified. Surgery has seen the patient and would like us to evaluate endoscopically. He is planning for IR guided biopsy if able and medical oncology evaluation. Pt states that she has had intermittent abdominal pain on a daily basis x 6 years, no relation to food. No egd/colonoscopy. Will plan for egd/colonoscopy in am. - N/V. Pt reports daily n/v 10x a day with bilious material. No hx of PUD. Severe GERD. LFTs as above. Lipase 301. - Alternating constipation/diarrhea. EGD/Colonoscopy. - Transaminitis/Elevated LFTs. T. Bili 0.3, AST 539, ALT 152, Alk Phosph 166. She denies any known hx of liver disease and originally reported that she drinks 2 drinks per day, but upon further questioning, then reported that she drank 5-6 shots yesterday. She originally denied any Tylenol use, but under repeated questioning, states that she takes Lortab. She reports that she took 2 yesterday. There is no hx of known hepatitis and she denies any family hx of liver disease. However, when I left the room, her mother came out and said she is not being very forthcoming, but that she has a long history of ETOH abuse and has been seen in the past for elevated LFTs. She also reports that she has a long hx of IVDA, recently quit. Liver workup. Toxicology screen. - Abn. Imaging with retroperitoneal adenopathy. Multiple mildly to moderately enlarged retroperitoneal lymph nodes, most prominent in the para-aortic region of the abdomen. The lymph nodes have increased in size when compared to the prior study of January 2015. New presacral masslike retroperitoneal soft tissue density. These findings are nonspecific and may represent reactive lymph nodes related to infection vs. malignancy 09-23 feels ok, sever elevation of LFTs, most likely ETOH related, labs for elevated LFTs in progress. abnormal CT scan with lymph nodes enlargement, colonoscopy was normal, EGD sever gastropathy, most likely because of ETOH, Bx was done. diarrhea alternating with constipation, normal colonoscopy most likely IBS 09/25/16-Feeling ok, had CT guided bx done yesterday for retroperitoneal adenopathy. DEBORAH is positive with a high titer and ASMA is positive, AFP is 1.8, Alpha 1 antitrypsin 163, Hepatitis profile negative. D/W Dr. Salvador will need CT guided liver Bx to rule out Autoimmune Hepatitis. This was discussed at length with the patient. PLAN: -CT guided liver Bx - watch for DT - diet as tolerated - Cont. Abx - Protonix - AMA pending - Iron Saturation, Ferritin - Ceruloplasmin pending - may need oncology consult for evaluation of enlarged lymph nodes. - Supportive care - Further recommendations to follow based on results of above Mercedez Davisb 22, 2017 16:56
--- NOTE | 2016-09-25 18:23 | PD.CAR.PN ---
CVT Progress Note Subjective/Hospital Course: 25-year-old female with the retroperitoneal para-aortic lymphadenopathy and the likelihood lymphatic mass in her pelvis Related symptoms of nausea vomiting weight loss and possible rectal bleeding Will proceed with laparoscopic biopsy in this lady once colonoscopy and upper endoscopy are done and serologic testing is completed, likely early this coming week Full consult dictated Thanks J 09/23/16 Patient with the above noted the periaortic abdominal lymphadenopathy as well as a mesenteric pelvic area mass measuring about 4 cm in diameter again likely lymph nodes in the mesentery of the pelvis Patient is in the process of workup and when the medical workup is completed I' ll take patient to the operating room for laparoscopy and biopsy GI consult appreciated Oncology consult pending 09/24/2016 Patient with retroperitoneal lymphadenopathy underwent today CT-guided biopsy of the same Will await further results of these and this is sufficient material patient will not need surgical approach On the other hand if the material is insufficient to make the diagnosis will go ahead with laparoscopic surgery if necessary Will await for the pathology findings first 09/25/16 Needle biopsy pathology is nondiagnostic At this point there is option off the open biopsy of retroperitoneal nodes and the pelvic mesenteric mass or repeat CAT scan in about 6 months considering that this is been there for about 2 years now I discussed it with the oncologist and we agree on the above Patient and family will discuss and decide which way to go Objective: Vital Signs Date Time Temp Pulse Resp B/P Pulse Ox O2 Delivery O2 Flow Rate FiO2 09/25/16 16:00 98.2 89 18 123/80 94 09/25/16 12:00 99.3 80 18 123/94 97 09/25/16 08:15 85 09/25/16 08:00 98.8 68 18 123/94 96 09/25/16 04:00 98.9 97 18 129/90 96 09/25/16 00:26 97.8 90 16 109/82 95 09/24/16 20:23 92 09/24/16 20:00 98.2 68 16 119/81 96 Labs: Laboratory Tests Test 09/25/16 09/25/16 07:40 10:27 Creatinine 0.66 MG/DL (0.50-1.00) Estimat Glomerular Filtration 107 ML/MIN Rate (>89) White Blood Count 4.8 TH/MM3 (4.0-11.0) Red Blood Count 4.14 MIL/MM3 (4.00-5.30) Hemoglobin 12.9 GM/DL (11.6-15.3) Hematocrit 38.4 % (35.0-46.0) Mean Corpuscular Volume 92.9 FL (80.0-100.0) Mean Corpuscular Hemoglobin 31.1 PG (27.0-34.0) Mean Corpuscular Hemoglobin 33.5 % Concent (32.0-36.0) Red Cell Distribution Width 14.5 % (11.6-17.2) Platelet Count 156 TH/MM3 (150-450) Mean Platelet Volume 8.4 FL (7.0-11.0) Neutrophils (%) (Auto) 62.6 % (16.0-70.0) Lymphocytes (%) (Auto) 19.5 % (9.0-44.0) Monocytes (%) (Auto) 13.2 % (0.0-8.0) Eosinophils (%) (Auto) 3.9 % (0.0-4.0) Basophils (%) (Auto) 0.8 % (0.0-2.0) Neutrophils # (Auto) 3.0 TH/MM3 (1.8-7.7) Lymphocytes # (Auto) 0.9 TH/MM3 (1.0-4.8) Monocytes # (Auto) 0.6 TH/MM3 (0-0.9) Eosinophils # (Auto) 0.2 TH/MM3 (0-0.4) Basophils # (Auto) 0.0 TH/MM3 (0-0.2) CBC Comment DIFF FINAL Differential Comment Result Diagram: 09/25/16 1027 09/25/16 0740 Zana Lee MD Sep 25, 2016 18:23
[2016-09-26] VITALS: BP 117/74; PULSE 88; RESP 18; TEMP 98.4; O2SAT 97
[2016-09-26 03:52] LABS: MITOCHONDRIAL ABS LESS THAN 20.0 U (())
[2016-09-26 04:00] VITALS: BP 120/57; PULSE 97; RESP 18; TEMP 98.6; O2SAT 96
[2016-09-26 08:00] VITALS: BP 132/79; PULSE 117; PULSE 89; RESP 18; TEMP 99.1; O2SAT 99
[2016-09-26] MEDS: PANTOPRAZOLE SOD 40 MG DELAYED RELEASE TAB PO SCH (08:05)
[2016-09-26 08:28] LABS: HEMATOCRIT 39.4 % (35.0-46.0); MEAN CELL VOLUME 93.7 FL (80.0-100.0); MEAN CORPUSCULAR HGB CONC 33.1 % (32.0-36.0); PLATELET COUNT 141 TH/MM3 (150-450); RED BLOOD COUNT 4.21 MIL/MM3 (4.00-5.30); RED CELL DISTRIBUTION WIDTH 14.5 % (11.6-17.2); REVIEW FLAG FINAL; WHITE BLOOD COUNT 3.6 TH/MM3 (4.0-11.0)
[2016-09-26] MEDS: SODIUM CHLORIDE 0.9% FLUSH 5 ML FLUSH FLUSH SCH ×2 (09:00→22:04)
[2016-09-26 09:14] LABS: BICARBONATE 29.6 MEQ/L (21.0-32.0); INDIRECT BILIRUBIN 0.5 MG/DL (0.0-0.8); POTASSIUM 3.9 MEQ/L (3.5-5.1); TOTAL BILIRUBIN ADULT 0.9 MG/DL (0.2-1.0)
--- NOTE | 2016-09-26 11:19 | PD.ONC.PN ---
Subjective Subjective Remarks Afebrile overnight. patient feeling anxious today. Her LN biopsy came back non- diagnostic. She thinks she would like to undergo surgical procedure for LN biopsy, but is still undecided. No other complaints. Objective Data Date Time Temp Pulse Resp B/P Pulse Ox O2 Delivery O2 Flow Rate FiO2 09/26/16 08:00 Room Air 09/26/16 08:00 117 09/26/16 04:00 98.6 97 18 120/57 96 09/26/16 00:00 Room Air 09/26/16 00:00 98.4 88 18 117/74 97 09/25/16 20:00 99.2 120 18 116/86 96 09/25/16 20:00 104 09/25/16 20:00 Room Air 09/25/16 16:00 98.2 89 18 123/80 94 09/25/16 12:00 99.3 80 18 123/94 97 Result Diagram: 09/26/16 0724 09/26/16 0724 Laboratory Results Laboratory Tests Test 09/26/16 07:24 White Blood Count 3.6 TH/MM3 Red Blood Count 4.21 MIL/MM3 Hemoglobin 13.0 GM/DL Hematocrit 39.4 % Mean Corpuscular Volume 93.7 FL Mean Corpuscular Hemoglobin 31.0 PG Mean Corpuscular Hemoglobin 33.1 % Concent Red Cell Distribution Width 14.5 % Platelet Count 141 TH/MM3 Mean Platelet Volume 8.2 FL Sodium Level 135 MEQ/L Potassium Level 3.9 MEQ/L Chloride Level 98 MEQ/L Carbon Dioxide Level 29.6 MEQ/L Anion Gap 7 MEQ/L Blood Urea Nitrogen 4 MG/DL Creatinine 0.61 MG/DL Estimat Glomerular Filtration 118 ML/MIN Rate Random Glucose 82 MG/DL Calcium Level 9.5 MG/DL Total Bilirubin 0.9 MG/DL Direct Bilirubin 0.4 MG/DL Indirect Bilirubin 0.5 MG/DL Aspartate Amino Transf 610 U/L (AST/SGOT) Alanine Aminotransferase 265 U/L (ALT/SGPT) Alkaline Phosphatase 172 U/L Total Protein 8.6 GM/DL Albumin 3.3 GM/DL Administered Medications Medications (Trade) Dose Ordered Sig/Naveed Route PRN Reason Start Time Stop Time Status Last Admin Dose Admin IV Flush (NS Flush) 2 ml BID FLUSH 09/22/16 21:00 09/24/16 20:10 Ondansetron HCl (Zofran Inj) 4 mg Q6H PRN IVP NAUSEA OR VOMITING 09/22/16 10:30 09/23/16 08:05 Heparin Sodium (Porcine) (Heparin Inj) 5,000 units Q12H SQ 09/22/16 11:00 Hold 09/22/16 21:53 Lorazepam (Ativan) 1 mg Q4H PRN PO CIWA 8 - 10 09/22/16 10:30 09/25/16 02:45 Lorazepam (Ativan Inj) 1 mg Q4H PRN IV PUSH CIWA 8 - 10 09/22/16 10:30 09/24/16 20:06 Lorazepam (Ativan Inj) 2 mg Q2H PRN IV PUSH CIWA 11-14 09/22/16 10:30 09/24/16 15:18 Tramadol HCl (Ultram) 50 mg Q6H PRN PO PAIN SCALE 6 TO 10 09/22/16 10:30 09/25/16 08:28 Pantoprazole Sodium (Protonix) 40 mg DAILY PO 09/23/16 11:00 09/26/16 08:05 Objective Remarks GENERAL: Young woman, sitting up in bed in [facility]. SKIN: Warm and dry. HEAD: Normocephalic. EYES: No scleral icterus. No injection or drainage. NECK: Supple, trachea midline CARDIOVASCULAR: Regular rate and rhythm RESPIRATORY: Breath sounds equal bilaterally. No accessory muscle use. GASTROINTESTINAL: Abdomen soft, non-tender, nondistended. EXTREMITIES: No cyanosis NEUROLOGICAL: No obvious focal deficit. Awake, alert, and oriented x3. Assessment/Plan Problem List: (1) Lymphadenopathy, retroperitoneal Status: Acute Plan: 09/26/16: core biopsy is non-diagnostic. patient given the choice of watching and waiting (repeating CT in 3-6 months), or undergoing surgical biopsy. she is still deciding. --EGD + colonoscopy: showed only small internal hemorrhoids and no abnormalities of the rectum noted. + severe gastropathy. B --HIV pending --Hepatitis panel negative --differential is lymphoma versus reactive lymphadenopathy Assessment 25y/o female with retroperitoneal LAD history of alcoholism and an IV drug abuse. Attending Statement c/o abd discomfort s/p lap bx of LN and liver path pending will follow. Lanie Barone Sep 26, 2016 11:19 Ila Fabian MD Sep 26, 2016 20:45
[2016-09-26 12:00] VITALS: BP 130/95; PULSE 88; RESP 18; TEMP 98.4; O2SAT 99
[2016-09-26] MEDS ORDERED: ONDANSETRON HCL 4 MG/2 ML VIAL IV PUSH ONE (12:00)
[2016-09-26] MEDS ORDERED: PROPOFOL 200 MG/20 ML AMP IV ONE (12:00)
[2016-09-26] MEDS ORDERED: NORMOSOL R INJ 1,000 ML IV ONE (12:00)
[2016-09-26] MEDS ORDERED: ceFAZolin 2 GM PREMIX 50 ML ONE (13:26)
[2016-09-26] MEDS ORDERED: BUPIVACAINE/EPINEPHRINE 0.5% PF 30 ML VIAL ONE (13:27)
--- NOTE | 2016-09-26 14:07 | PD.CAR.PN ---
CVT Progress Note Subjective/Hospital Course: 25-year-old female with the retroperitoneal para-aortic lymphadenopathy and the likelihood lymphatic mass in her pelvis Related symptoms of nausea vomiting weight loss and possible rectal bleeding Will proceed with laparoscopic biopsy in this lady once colonoscopy and upper endoscopy are done and serologic testing is completed, likely early this coming week Full consult dictated Thanks J 09/23/16 Patient with the above noted the periaortic abdominal lymphadenopathy as well as a mesenteric pelvic area mass measuring about 4 cm in diameter again likely lymph nodes in the mesentery of the pelvis Patient is in the process of workup and when the medical workup is completed I' ll take patient to the operating room for laparoscopy and biopsy GI consult appreciated Oncology consult pending 09/24/2016 Patient with retroperitoneal lymphadenopathy underwent today CT-guided biopsy of the same Will await further results of these and this is sufficient material patient will not need surgical approach On the other hand if the material is insufficient to make the diagnosis will go ahead with laparoscopic surgery if necessary Will await for the pathology findings first 09/25/16 Needle biopsy pathology is nondiagnostic At this point there is option off the open biopsy of retroperitoneal nodes and the pelvic mesenteric mass or repeat CAT scan in about 6 months considering that this is been there for about 2 years now I discussed it with the oncologist and we agree on the above Patient and family will discuss and decide which way to go 09/26/2016 Spoken to patient at length about the options Option is still to preform a CT scan in about 6 months and see if the lymph nodes are more enlarged or any change has occurred or to proceed with surgery and open biopsy As far as lymph nodes are concerned I believe most likely the patient does have enlarged lymph nodes is a reaction to either the drug use possibly shooting into the leg or its and nonspecific inflammatory disease Of course there is a small chance that this may be a low-grade lymphoma As far as pelvic lesion is concerned this is most likely fibroid and if such will remain undisturbed but I will see that during the surgery. On the other hand if this is a mesenteric mass of any other type we'll excise it As far as liver is concerned patient clearly has a huge liver on the CAT scan and palpable correspondingly to about 2 inches below the costal margin midclavicular line. In young people this is usually due to alcohol and Tylenol abuse combined with other narcotics or both We will do liver biopsy while in surgery so patient doesn't have to make special trip for it After careful explanation of risks and benefits and possible options patient opts to have surgery and will be taken to the operating room today Objective: Vital Signs Date Time Temp Pulse Resp B/P Pulse Ox O2 Delivery O2 Flow Rate FiO2 09/26/16 12:00 98.4 88 18 130/95 99 09/26/16 08:00 Room Air 09/26/16 08:00 99.1 89 18 132/79 99 09/26/16 08:00 117 09/26/16 04:00 98.6 97 18 120/57 96 09/26/16 00:00 Room Air 09/26/16 00:00 98.4 88 18 117/74 97 09/25/16 20:00 99.2 120 18 116/86 96 09/25/16 20:00 104 09/25/16 20:00 Room Air 09/25/16 16:00 98.2 89 18 123/80 94 Labs: Laboratory Tests Test 09/26/16 07:24 White Blood Count 3.6 TH/MM3 (4.0-11.0) Red Blood Count 4.21 MIL/MM3 (4.00-5.30) Hemoglobin 13.0 GM/DL (11.6-15.3) Hematocrit 39.4 % (35.0-46.0) Mean Corpuscular Volume 93.7 FL (80.0-100.0) Mean Corpuscular Hemoglobin 31.0 PG (27.0-34.0) Mean Corpuscular Hemoglobin 33.1 % Concent (32.0-36.0) Red Cell Distribution Width 14.5 % (11.6-17.2) Platelet Count 141 TH/MM3 (150-450) Mean Platelet Volume 8.2 FL (7.0-11.0) Sodium Level 135 MEQ/L (136-145) Potassium Level 3.9 MEQ/L (3.5-5.1) Chloride Level 98 MEQ/L (98-107) Carbon Dioxide Level 29.6 MEQ/L (21.0-32.0) Anion Gap 7 MEQ/L (5-15) Blood Urea Nitrogen 4 MG/DL (7-18) Creatinine 0.61 MG/DL (0.50-1.00) Estimat Glomerular Filtration 118 ML/MIN Rate (>89) Random Glucose 82 MG/DL (74-106) Calcium Level 9.5 MG/DL (8.5-10.1) Total Bilirubin 0.9 MG/DL (0.2-1.0) Direct Bilirubin 0.4 MG/DL (0.0-0.2) Indirect Bilirubin 0.5 MG/DL (0.0-0.8) Aspartate Amino Transf 610 U/L (15-37) (AST/SGOT) Alanine Aminotransferase 265 U/L (10-53) (ALT/SGPT) Alkaline Phosphatase 172 U/L (45-117) Total Protein 8.6 GM/DL (6.4-8.2) Albumin 3.3 GM/DL (3.4-5.0) Result Diagram: 09/26/16 0709/26/16 0724 Zana Lee MD Sep 26, 2016 14:07
--- NOTE | 2016-09-26 14:13 | HHI.PR ---
Subjective Remarks Patient seen earlier this morning. She was still taking about whether or not she wants to go through surgery. She admits that if she leaves the hospital she will not follow-up. She is leaning toward going through surgery for definite diagnostic workup. Objective Vitals Vital Signs Date Time Temp Pulse Resp B/P Pulse Ox O2 Delivery O2 Flow Rate FiO2 09/26/16 12:00 98.4 88 18 130/95 99 09/26/16 08:00 Room Air 09/26/16 08:00 99.1 89 18 132/79 99 09/26/16 08:00 117 09/26/16 04:00 98.6 97 18 120/57 96 09/26/16 00:00 Room Air 09/26/16 00:00 98.4 88 18 117/74 97 09/25/16 20:00 99.2 120 18 116/86 96 09/25/16 20:00 104 09/25/16 20:00 Room Air 09/25/16 16:00 98.2 89 18 123/80 94 I/O 09/25/16 09/25/16 09/25/16 09/26/16 09/26/16 09/26/16 07:00 15:00 23:00 07:00 15:00 23:00 Intake Total 2 ml 720 ml 720 ml Balance 2 ml 720 ml 720 ml Intake Oral 720 ml 720 ml IV Total 2 ml 0 ml # Voids 4 4 # Bowel Movements 1 Result Diagram: 09/26/1672309/26/1624 Objective Remarks GENERAL: This is a well-nourished, well-developed patient, in no apparent distress. CARDIOVASCULAR: Normal rate and regular rhythm without murmurs RESPIRATORY: Good respiratory efforts. Breath sounds equal and clear to auscultation bilaterally. GASTROINTESTINAL: Abdomen soft, nondistended, mildly tender to palpation diffusely per patient. Normal active bowel sounds MUSCULOSKELETAL: Extremities without cyanosis, or edema. PSYCH: Appropriate mood and affect. A/P Problem List: (1) Rectal bleeding ICD Code: K62.5 Status: Acute (2) Elevated liver enzymes ICD Code: R74.8 Status: Acute (3) Lymphadenopathy, retroperitoneal ICD Code: R59.0 Status: Acute (4) Pelvic mass ICD Code: R19.00 Status: Acute (5) Transaminitis ICD Code: R74.0 Status: Acute (6) IVDU (intravenous drug user) ICD Code: F19.90 Status: Acute Assessment and Plan 25-year-old female with: Rectal bleeding/Abdominal pain: ? Rectal prolapse per patient. GI following. S/ P EGD/Colonoscopy with findings of gastropathy likely secondary to alcoholism and internal hemorrhoids. On abdominal CT the patient also has enlarging retroperitoneal lymph nodes most prominent in the para-aortic region of the abdomen. There is also a new presacral masslike retroperitoneal soft tissue density. - Continue supportive care per GI, PPI. Alternating constipation and diarrhea likely secondary to IBS. - Patient has been on IV vanc and Zosyn. All cultures so far neg. Echo neg for endocarditis. Antibiotics discontinued. Continue to monitor off antibiotics. Retroperitoneal lymphadenopathy and presacral mass: CT scan reviewed as above. - Etiology unclear. Lymphoma on the differential. Reactive process also a possibility given her history of IV drug use. - General surgery following. Status post CT-guided biopsy which was nondiagnostic. Patient was been thinking about what her not to proceed with surgery. She is leaning more toward going through with surgery since she will not follow up outpatient. General surgery to follow-up. - Medical oncology following. History of IVDU: Patient denies current use. Cautious with narcotics. Patient was counseled. Tramadol PRN. Transaminitis: Likely secondary to alcohol abuse. GI following. Continue to trend. Tobacco abuse: Patient was counseled. CIWA per protocol. GI prophylaxis: PPI. DVT PPx: SCDs. Patient is ambulatory. Thrombocytopenic. Jennifer Broderick MD Sep 26, 2016 14:13
[2016-09-26] MEDS ORDERED: ceFAZolin 2 GM PREMIX 50 ML IV SCH (14:15)
--- NOTE | 2016-09-26 15:27 | HHI.GIFU ---
GI Follow-up Note Consult Follow-up Pt off floor in OR. Entered by: Amber Mathew Sep 26, 2016 15:27
[2016-09-26] MEDS ORDERED: MIDAZOLAM HCL 2 MG/2 ML VIAL ONE (16:18)
[2016-09-26] MEDS ORDERED: fentaNYL CITRATE 250 MCG/5 ML AMP ONE (16:19)
[2016-09-26] MEDS ORDERED: HYDROmorphone HCL PF 2 MG/ML VIAL ONE (16:19)
[2016-09-26] MEDS ORDERED: SUGAMMADEX SODIUM 200 MG/2 ML VIAL IV PUSH ONE ×2 (16:20)
[2016-09-26 16:25] LABS: BETA HCG QUANT LESS THAN 1 MIU/ML (0-5)
[2016-09-26] MEDS ORDERED: *HYDROmorphone PF 1 MG VIAL PERIprocedural Use ONLY ONE (17:05)
[2016-09-26] MEDS ORDERED: *ONDANSETRON 4 MG VIAL PERIprocedural Use ONLY ONE (17:08)
[2016-09-26] MEDS: HYDROmorphone HCL PF 1 MG/ML VIAL IV PRN ×2 (17:23→17:44)
[2016-09-26] MEDS ORDERED: HYDROmorphone HCL PF 1 MG/ML VIAL IV ONE (17:30)
[2016-09-26] MEDS ORDERED: DO NOT ADM ANY ANTICOAGULANT DRUGS XX PRN (17:45)
[2016-09-26] MEDS ORDERED: *morphine SULFATE 8 MG/ML PERIprocedure ONLY ONE (18:13)
--- NOTE | 2016-09-26 18:27 | MP ---
cc: ZANA MCLAUGHLIN MD DATE OF SURGERY: 09/26/2016. PREOPERATIVE DIAGNOSIS: 1. Periaortic and retroperitoneal lymphadenopathy. 2. Hepatomegaly. 3. Possible autoimmune hepatitis. 4. Elevation of liver function tests. POSTOPERATIVE DIAGNOSIS: 1. Periaortic and retroperitoneal lymphadenopathy. 2. Hepatomegaly. 3. Possible autoimmune hepatitis. 4. Elevation of liver function tests. OPERATIVE PROCEDURE PERFORMED: 1. Exploratory laparotomy with retroperitoneal periaortic lymph node dissection x3. 2. Biopsy of the right lobe of the liver. SURGEON: Zana Mclaughlin M.D. ANESTHESIA: General. ESTIMATED BLOOD LOSS: 50 mL. DESCRIPTION OF THE PROCEDURE IN DETAIL: The patient was prepped and draped in the usual fashion. A small midabdominal incision was made just above and below the umbilicus and the abdomen was entered. Upon entrance to the abdomen, Bookwalter retractors were positioned. The small bowel was run and appeared to be normal. The large bowel was observed and appeared to be normal. The spleen was normal. The liver appeared to be enlarged, somewhat yellowish looking in color but slightly angry-appearing as far as the shiny swelling of it. The pelvis was explored. The patient had a small fibroid of the uterus, which was left alone, which corresponds to the below-noted sacral mass. The retroperitoneum was now exposed. Retractors were repositioned to allow for exposure of the retroperitoneum. Exposure gained aortic visualization from above the renals down to their bifurcations. A small incision was now made in the retroperitoneum and the periaortic space was opened. The CT scan observed lymph nodes in this area which were now found and packets of lymph nodes were dissected very carefully with sharp and blunt dissection. A number of Liga clips were placed on the lymphatics and these nodes were now removed. They were all sent for pathology for permanent and frozen sections. As I was handling the nodes, they certainly did not feel malignant, but I have been wrong before; rather, these felt like reactive inflammatory nodes. The area was irrigated with saline and meticulous hemostasis was obtained. A meticulous lymphostasis was obtained as well. A small piece of SNoW Wilner was placed in the area. Once this was completed, the small bowel was put back in place. Now the liver was attended to. The right lobe of the liver appeared to be slightly angry and swollen; therefore, 2-0 Vicryl stitches were placed and spaced about 1.5 cm and then the tissue between them was cut out using a #15 blade and sent for permanent pathology. The area was cauterized. Meticulous hemostasis was assured. Once more, the abdomen was irrigated with saline. The site of lymph node dissection was once more observed and it appeared to be nice and dry. The abdomen was closed with a #1 PDS loop and 4-0 subcuticular Monocryl. Benzoin and Steri-Strips were applied. The patient tolerated the procedure well. Zana TUCKER/TIFF /5:25 PM /6:06 PM
[2016-09-26] MEDS: HYDROmorphone HCL PF 1 MG/ML VIAL IV PUSH PRN (19:29)
[2016-09-26 20:00] VITALS: BP 120/86; PULSE 83; RESP 20; TEMP 96.7; O2SAT 99
[2016-09-26] MEDS: ACETAMINOPHEN/HYDROcodone 325 MG/5 MG TAB PO PRN (22:04)
[2016-09-27] VITALS (7 sets, daily range): BP systolic 105–139; BP diastolic 65–97; PULSE 81–90; RESP 18–20; TEMP 95.9–99.5; O2SAT 96–100
[2016-09-27] MEDS: HYDROmorphone HCL PF 1 MG/ML VIAL IV PUSH PRN ×5 (00:52→21:14)
[2016-09-27] MEDS: traMADol HCL 50 MG TAB PO PRN ×2 (03:01→10:24)
[2016-09-27] MEDS ORDERED: HYDROmorphone HCL PF 2 MG/ML VIAL IV PUSH ONE (03:30)
[2016-09-27] MEDS: ACETAMINOPHEN/HYDROcodone 325 MG/5 MG TAB PO PRN ×2 (07:33→13:30)
[2016-09-27] MEDS: PANTOPRAZOLE SOD 40 MG DELAYED RELEASE TAB PO SCH (07:33)
[2016-09-27] MEDS: SODIUM CHLORIDE 0.9% FLUSH 5 ML FLUSH FLUSH SCH ×2 (07:34→21:00)
[2016-09-27 09:06] LABS: HEMATOCRIT 39.5 % (35.0-46.0); MEAN CELL VOLUME 93.3 FL (80.0-100.0); MEAN CORPUSCULAR HEMOGLOBIN 31.1 PG (27.0-34.0); MEAN CORPUSCULAR HGB CONC 33.3 % (32.0-36.0); PLATELET COUNT 230 TH/MM3 (150-450); RED BLOOD COUNT 4.23 MIL/MM3 (4.00-5.30); RED CELL DISTRIBUTION WIDTH 14.5 % (11.6-17.2); REVIEW FLAG FINAL; WHITE BLOOD COUNT 5.8 TH/MM3 (4.0-11.0)
[2016-09-27 09:28] LABS: BICARBONATE 29.2 MEQ/L (21.0-32.0); POTASSIUM 3.4 MEQ/L (3.5-5.1)
--- NOTE | 2016-09-27 10:36 | PD.ONC.PN ---
Subjective Subjective Remarks Afebrile overnight. Patient complaining of pain in her abdomen. She feels she is not receiving enough pain medication. Objective Data Date Time Temp Pulse Resp B/P Pulse Ox O2 Delivery O2 Flow Rate FiO2 09/27/16 08:00 99.5 88 18 139/97 100 09/27/16 04:00 97.5 87 18 121/81 100 09/27/16 00:00 97.8 84 20 108/67 100 09/26/16 20:00 96.7 83 20 120/86 99 09/26/16 18:30 98.2 88 12 124/80 99 Nasal Cannula 2 09/26/16 18:15 81 13 122/86 99 Nasal Cannula 2 09/26/16 18:00 85 13 129/81 99 Nasal Cannula 2 09/26/16 17:45 88 12 123/82 100 Nasal Cannula 2 09/26/16 17:30 92 16 135/86 100 Nasal Cannula 2 09/26/16 17:15 88 14 136/86 99 Nasal Cannula 2 09/26/16 17:03 98.4 96 15 136/89 98 Room Air 09/26/16 12:00 98.4 88 18 130/95 99 Result Diagram: 09/27/16 0839 09/27/16 0839 Laboratory Results Laboratory Tests Test 09/26/16 09/26/16 09/27/16 15:40 16:00 08:39 Human Chorionic Gonadotropin, LESS THAN 1 Quant MIU/ML Blood Type A POSITIVE Antibody Screen NEGATIVE Blood Bank Comment White Blood Count 5.8 TH/MM3 Red Blood Count 4.23 MIL/MM3 Hemoglobin 13.2 GM/DL Hematocrit 39.5 % Mean Corpuscular Volume 93.3 FL Mean Corpuscular Hemoglobin 31.1 PG Mean Corpuscular Hemoglobin 33.3 % Concent Red Cell Distribution Width 14.5 % Platelet Count 230 TH/MM3 Mean Platelet Volume 7.5 FL Sodium Level 136 MEQ/L Potassium Level 3.4 MEQ/L Chloride Level 98 MEQ/L Carbon Dioxide Level 29.2 MEQ/L Anion Gap 9 MEQ/L Blood Urea Nitrogen 5 MG/DL Creatinine 0.58 MG/DL Estimat Glomerular Filtration 125 ML/MIN Rate Random Glucose 93 MG/DL Calcium Level 9.3 MG/DL Administered Medications Medications (Trade) Dose Ordered Sig/Naveed Route PRN Reason Start Time Stop Time Status Last Admin Dose Admin IV Flush (NS Flush) 2 ml UNSCH PRN FLUSH FLUSH AFTER USING IV ACCESS 09/22/16 10:30 09/26/16 19:29 IV Flush (NS Flush) 2 ml BID FLUSH 09/22/16 21:00 09/27/16 07:34 Acetaminophen (Tylenol) 650 mg Q4H PRN PO TEMP > 100.4 09/22/16 10:30 09/27/16 10:26 Ondansetron HCl (Zofran Inj) 4 mg Q6H PRN IVP NAUSEA OR VOMITING 09/22/16 10:30 09/23/16 08:05 Heparin Sodium (Porcine) (Heparin Inj) 5,000 units Q12H SQ 09/22/16 11:00 Hold 09/22/16 21:53 Lorazepam (Ativan) 1 mg Q4H PRN PO CIWA 8 - 10 09/22/16 10:30 09/25/16 02:45 Lorazepam (Ativan Inj) 1 mg Q4H PRN IV PUSH CIWA 8 - 10 09/22/16 10:30 09/24/16 20:06 Lorazepam (Ativan Inj) 2 mg Q2H PRN IV PUSH CIWA 11-14 09/22/16 10:30 09/24/16 15:18 Tramadol HCl (Ultram) 50 mg Q6H PRN PO PAIN SCALE 6 TO 10 09/22/16 10:30 09/27/16 10:24 Pantoprazole Sodium (Protonix) 40 mg DAILY PO 09/23/16 11:00 09/27/16 07:33 Acetaminophen/ Hydrocodone Bitart ([place] 5-325 Mg) 1 tab Q6H PRN PO BREAKTHROUGH PAIN 09/26/16 17:15 09/27/16 07:33 Hydromorphone HCl (Dilaudid Pf Inj) 0.5 mg Q4H PRN IV PUSH PAIN SCALE 6 TO 10 09/26/16 17:30 09/27/16 07:33 Objective Remarks GENERAL: Young woman, lying in bed in nad. SKIN: Warm and dry. HEAD: Normocephalic. EYES: No scleral icterus. No injection or drainage. NECK: Supple, trachea midline CARDIOVASCULAR: Regular rate and rhythm RESPIRATORY: Breath sounds equal bilaterally. No accessory muscle use. GASTROINTESTINAL: Abdomen soft, midline incision with overlying bandage c/d/i. +tenderness around incision site. EXTREMITIES: No cyanosis NEUROLOGICAL: No obvious focal deficit. Awake, alert, and oriented x3. Assessment/Plan Problem List: (1) Lymphadenopathy, retroperitoneal Status: Acute Plan: 09/27/16: POD#1 s/p exp. laparotomy with retroperitoneal LN dissection x 3 and biopsy of right lobe of liver. awaiting pathology --EGD + colonoscopy: showed only small internal hemorrhoids and no abnormalities of the rectum noted. + severe gastropathy. B --HIV pending --Hepatitis panel negative --differential is lymphoma versus reactive lymphadenopathy Assessment 25y/o female with retroperitoneal LAD history of alcoholism and an IV drug abuse. Attending Statement c/o abd pain. Path ios pending Ok to d/c, will follow path as outpt The exam, history, and the medical decision-making described in the above note were completed with the assistance of the mid-level provider. I reviewed and agree with the findings presented. I attest that I had a [id number] encounter with the patient on the same day, and personally performed and documented my assessment and findings in the medical record. Lanie Barone Sep 27, 2016 10:36 Ila Fabian MD Sep 27, 2016 17:18
[2016-09-27] MEDS: SODIUM CHLOR 0.9% 1000 ML INJ 1,000 ML IV SCH ×2 (13:30→23:30)
--- NOTE | 2016-09-27 14:08 | HHI.PR ---
Subjective Remarks Patient complaint of pain not controlled. She is tolerating the liquid diet and asked to advance it. Objective Vitals Vital Signs Date Time Temp Pulse Resp B/P Pulse Ox O2 Delivery O2 Flow Rate FiO2 09/27/16 08:00 99.5 88 18 139/97 100 09/27/16 04:00 97.5 87 18 121/81 100 09/27/16 00:00 97.8 84 20 108/67 100 09/26/16 20:00 96.7 83 20 120/86 99 09/26/16 18:30 98.2 88 12 124/80 99 Nasal Cannula 2 09/26/16 18:15 81 13 122/86 99 Nasal Cannula 2 09/26/16 18:00 85 13 129/81 99 Nasal Cannula 2 09/26/16 17:45 88 12 123/82 100 Nasal Cannula 2 09/26/16 17:30 92 16 135/86 100 Nasal Cannula 2 09/26/16 17:15 88 14 136/86 99 Nasal Cannula 2 09/26/16 17:03 98.4 96 15 136/89 98 Room Air I/O 09/26/16 09/26/16 09/26/16 09/27/16 09/27/16 09/27/16 07:00 15:00 23:00 07:00 15:00 23:00 Intake Total 1740 ml 150 ml Output Total 490 ml 300 ml Balance 1250 ml -150 ml Intake Oral 240 ml 150 ml Other 1500 ml Output Urine Total 415 ml 300 ml Estimated Blood Loss 75 ml # Voids 2 # Bowel Movements 0 0 0 Result Diagram: 09/27/16 0839 09/27/16 0839 Objective Remarks GENERAL: This is a well-nourished, well-developed patient, in no apparent distress. CARDIOVASCULAR: Normal rate and regular rhythm without murmurs RESPIRATORY: Good respiratory efforts. Breath sounds equal and clear to auscultation bilaterally. GASTROINTESTINAL: Abdomen soft, there is a midline dressing that appears clean and intact. Appropriately tender to palpation near the surgical site. MUSCULOSKELETAL: Extremities without cyanosis, or edema. PSYCH: Appropriate mood and affect. A/P Problem List: (1) Rectal bleeding ICD Code: K62.5 Status: Acute (2) Elevated liver enzymes ICD Code: R74.8 Status: Acute (3) Lymphadenopathy, retroperitoneal ICD Code: R59.0 Status: Acute (4) Pelvic mass ICD Code: R19.00 Status: Acute (5) Transaminitis ICD Code: R74.0 Status: Acute (6) IVDU (intravenous drug user) ICD Code: F19.90 Status: Acute Assessment and Plan 25-year-old female with: Retroperitoneal lymphadenopathy and presacral mass: CT scan reviewed as above. - Etiology unclear. Lymphoma on the differential. Reactive process also a possibility given her history of IV drug use. - General surgery following. Status post CT-guided biopsy which was nondiagnostic. - Status post resection by general surgery. Pathology pending. Appreciate general surgery following. - Pain medication frequency has been increased. Rectal bleeding/Abdominal pain: ? Rectal prolapse per patient. GI following. S/ P EGD/Colonoscopy with findings of gastropathy likely secondary to alcoholism and internal hemorrhoids. On abdominal CT the patient also has enlarging retroperitoneal lymph nodes most prominent in the para-aortic region of the abdomen. There is also a new presacral masslike retroperitoneal soft tissue density. - Continue supportive care per GI, PPI. Alternating constipation and diarrhea likely secondary to IBS. - Patient has been on IV vanc and Zosyn. All cultures so far neg. Echo neg for endocarditis. Antibiotics discontinued. Continue to monitor off antibiotics. History of IVDU: Patient denies current use. Cautious with narcotics. Transaminitis: Likely secondary to alcohol abuse. GI following. Concern for autoimmune hepatitis. Liver biopsy was done. Pathology pending. Tobacco abuse: Patient was counseled. CIWA per protocol. GI prophylaxis: PPI. DVT PPx: SCDs. Patient is ambulatory. Thrombocytopenic. Jennifer Broderick MD Sep 27, 2016 14:08
--- NOTE | 2016-09-27 16:52 | HHI.GIFU ---
Subjective Remarks Resting in bed. No n/v. States she is having abdominal pain- very sore from surgery- aggravated by movement. Objective Vitals I&O Vital Signs Date Time Temp Pulse Resp B/P Pulse Ox O2 Delivery O2 Flow Rate FiO2 09/27/16 12:00 95.9 90 18 117/71 100 09/27/16 08:00 99.5 88 18 139/97 100 09/27/16 04:00 97.5 87 18 121/81 100 09/27/16 00:00 97.8 84 20 108/67 100 09/26/16 20:00 96.7 83 20 120/86 99 09/26/16 18:30 98.2 88 12 124/80 99 Nasal Cannula 2 09/26/16 18:15 81 13 122/86 99 Nasal Cannula 2 09/26/16 18:00 85 13 129/81 99 Nasal Cannula 2 09/26/16 17:45 88 12 123/82 100 Nasal Cannula 2 09/26/16 17:30 92 16 135/86 100 Nasal Cannula 2 09/26/16 17:15 88 14 136/86 99 Nasal Cannula 2 09/26/16 17:03 98.4 96 15 136/89 98 Room Air I/O 09/26/16 09/26/16 09/26/16 09/27/16 09/27/16 09/27/16 07:00 15:00 23:00 07:00 15:00 23:00 Intake Total 1740 ml 150 ml Output Total 490 ml 300 ml Balance 1250 ml -150 ml Intake Oral 240 ml 150 ml Other 1500 ml Output Urine Total 415 ml 300 ml Estimated Blood Loss 75 ml # Voids 2 # Bowel Movements 0 0 0 Laboratory Laboratory Tests Test 09/27/16 08:39 White Blood Count 5.8 Red Blood Count 4.23 Hemoglobin 13.2 Hematocrit 39.5 Mean Corpuscular Volume 93.3 Mean Corpuscular Hemoglobin 31.1 Mean Corpuscular Hemoglobin 33.3 Concent Red Cell Distribution Width 14.5 Platelet Count 230 Mean Platelet Volume 7.5 Sodium Level 136 Potassium Level 3.4 Chloride Level 98 Carbon Dioxide Level 29.2 Anion Gap 9 Blood Urea Nitrogen 5 Creatinine 0.58 Estimat Glomerular Filtration 125 Rate Random Glucose 93 Calcium Level 9.3 Imaging Last Impressions Lymph Node Biopsy CT 09/24/16 1341 Signed Impressions: Service Date/Time: Saturday, September 24, 2016 15:10 - CONCLUSION: Uncomplicated CT guided biopsy of the left periaortic lymphadenopathy inferior to the left renal vein. Only small samples were able to be obtained. Colin Beck MD Abdomen/Pelvis CT 09/22/16 0646 Signed Impressions: Service Date/Time: Thursday, September 22, 2016 07:15 - CONCLUSION: 1. Multiple mildly to moderately enlarged retroperitoneal lymph nodes, most prominent in the para-aortic region of the abdomen. The lymph nodes have increased in size when compared to the prior study of January 2015. New presacral masslike retroperitoneal soft tissue density. These findings are nonspecific and may represent reactive lymph nodes related to infection. Malignancy such as lymphoma also in the differential diagnosis. 2. Moderate to severe hepatic steatosis. 3. Nonobstructing right renal calculus. 4. Left-sided fundal uterine fibroid again seen. 5. No peripancreatic inflammatory changes identified. Alex Mendez MD CT Angiography 09/22/16 0519 Signed Impressions: Service Date/Time: Thursday, September 22, 2016 07:15 - CONCLUSION: 1. No evidence of pulmonary embolus. 2. Mild patchy opacity in the left lower lobe indicating atelectasis versus minimal inflammatory change. No evidence of pulmonary consolidation Alex Mendez MD Chest X-Ray 09/22/16 0515 Signed Impressions: Service Date/Time: Thursday, September 22, 2016 05:16 - CONCLUSION: 1. No acute cardiopulmonary disease. Albino Hubbard MD Thoracic Spine CT 09/22/16 0000 Signed Impressions: Service Date/Time: Thursday, September 22, 2016 07:15 - CONCLUSION: Mild multilevel degenerative findings. No evidence of abscess. Alex Mendez MD Lumbar Spine CT 09/22/16 0000 Signed Impressions: Service Date/Time: Thursday, September 22, 2016 07:15 - CONCLUSION: Mild left-sided facet arthrosis at L2-3. Presacral soft tissue density, prominent retroperitoneal lymph nodes, and right-sided nonobstructing renal calculus as described on abdomen and pelvis CT report. Alex Mendez MD Physical Exam HEENT: Normocephalic; atraumatic; no jaundice. CHEST: CTA CARDIAC: RRR ABDOMEN: Soft, nondistended, mild diffuse tenderness; no hepatosplenomegaly; bowel sounds are present in all four quadrants. Midline drsg d/i EXTREMITIES: No clubbing, cyanosis, or edema. SKIN: Normal; no rash; no jaundice. [employer]: No focal deficits; alert and oriented times three. agitated Assessment and Plan Plan ASSESSMENT: - Abdominal pain. Abdomen/Pelvis CT (09/22/16)----> 1. Multiple mildly to moderately enlarged retroperitoneal lymph nodes, most prominent in the para- aortic region of the abdomen. The lymph nodes have increased in size when compared to the prior study of January 2015. New presacral masslike retroperitoneal soft tissue density. These findings are nonspecific and may represent reactive lymph nodes related to infection. Malignancy such as lymphoma also in the differential diagnosis. 2. Moderate to severe hepatic steatosis. 3. Nonobstructing right renal calculus. 4. Left-sided fundal uterine fibroid again seen. 5. No peripancreatic inflammatory changes identified. Surgery has seen the patient and would like us to evaluate endoscopically. S/P EGD/Colonoscopy (09/23/16)----> severe gastropathy, normal endoscopy otherwise, retroflexed views revealed no abnormalities. the colonic mucosa appeared normal, retroflexed views revealed small internal hemorrhoids, revealed no abnormalities of the rectum. Pathology gastric antral mucosa with mild active chronic gastritis, gastric mucosa with mild active chronic gastritis, there is no evidence of metaplasia or dysplasia. - N/V. Pt reports daily n/v 10x a day with bilious material. IMPROVED - Alternating constipation/diarrhea. S/P EGD/Colonoscopy as above. - Transaminitis/Elevated LFTs with positive DEBORAH, ASMA, suggestive of possible autoimmune hepatitis. S/P liver biopsy yesterday, pathology pending. LFTs were more elevated yesterday. None today. Will recheck in am. - Abn. Imaging with retroperitoneal adenopathy. Multiple mildly to moderately enlarged retroperitoneal lymph nodes, most prominent in the para-aortic region of the abdomen. The lymph nodes have increased in size when compared to the prior study of January 2015. New presacral masslike retroperitoneal soft tissue density. These findings are nonspecific and may represent reactive lymph nodes related to infection vs. malignancy. CT guided liver biopsy (09/24/16) was no diagnostic. Went for exploratory lap. with biopsy of lymph node and pathology is pending. PLAN: - GLADIS - Await pathology from liver biopsy, lymph node - LFT in am - watch for DT - Cont. Protonix - Supportive care - D/W patient the importance of complete ETOH and Drug Cessation, verbalizes understanding - Further recommendations to follow based on results of above - Pt seen and examined by Dr. Avalos and myself and this note is written on his behalf Amber Morales Sep 27, 2016 16:52
--- NOTE | 2016-09-27 19:26 | PD.CAR.PN ---
CVT Progress Note Subjective/Hospital Course: 25-year-old female with the retroperitoneal para-aortic lymphadenopathy and the likelihood lymphatic mass in her pelvis Related symptoms of nausea vomiting weight loss and possible rectal bleeding Will proceed with laparoscopic biopsy in this lady once colonoscopy and upper endoscopy are done and serologic testing is completed, likely early this coming week Full consult dictated Thanks J 09/23/16 Patient with the above noted the periaortic abdominal lymphadenopathy as well as a mesenteric pelvic area mass measuring about 4 cm in diameter again likely lymph nodes in the mesentery of the pelvis Patient is in the process of workup and when the medical workup is completed I' ll take patient to the operating room for laparoscopy and biopsy GI consult appreciated Oncology consult pending 09/24/2016 Patient with retroperitoneal lymphadenopathy underwent today CT-guided biopsy of the same Will await further results of these and this is sufficient material patient will not need surgical approach On the other hand if the material is insufficient to make the diagnosis will go ahead with laparoscopic surgery if necessary Will await for the pathology findings first 09/25/16 Needle biopsy pathology is nondiagnostic At this point there is option off the open biopsy of retroperitoneal nodes and the pelvic mesenteric mass or repeat CAT scan in about 6 months considering that this is been there for about 2 years now I discussed it with the oncologist and we agree on the above Patient and family will discuss and decide which way to go 09/26/2016 Spoken to patient at length about the options Option is still to preform a CT scan in about 6 months and see if the lymph nodes are more enlarged or any change has occurred or to proceed with surgery and open biopsy As far as lymph nodes are concerned I believe most likely the patient does have enlarged lymph nodes is a reaction to either the drug use possibly shooting into the leg or its and nonspecific inflammatory disease Of course there is a small chance that this may be a low-grade lymphoma As far as pelvic lesion is concerned this is most likely fibroid and if such will remain undisturbed but I will see that during the surgery. On the other hand if this is a mesenteric mass of any other type we'll excise it As far as liver is concerned patient clearly has a huge liver on the CAT scan and palpable correspondingly to about 2 inches below the costal margin midclavicular line. In young people this is usually due to alcohol and Tylenol abuse combined with other narcotics or both We will do liver biopsy while in surgery so patient doesn't have to make special trip for it After careful explanation of risks and benefits and possible options patient opts to have surgery and will be taken to the operating room today 09/27/2016 Status post exploration and retroperitoneal periarticular lymph node dissection and liver biopsy Abdomen is soft with active bowel sounds and incision is clean and dry Patient has been advanced to regular diet She is very hard to get to walk out of bed and is very low pain tolerance in face of previous and current IV drug abuse Plan is to mobilize the patient to prevent pneumonia Once patient needs has a bowel movement she can be discharged Pathology is pending Objective: Vital Signs Date Time Temp Pulse Resp B/P Pulse Ox O2 Delivery O2 Flow Rate FiO2 09/27/16 18:23 97 21 09/27/16 16:00 96.4 81 18 126/81 97 09/27/16 12:00 95.9 90 18 117/71 100 09/27/16 08:00 99.5 88 18 139/97 100 09/27/16 04:00 97.5 87 18 121/81 100 09/27/16 00:00 97.8 84 20 108/67 100 09/26/16 20:00 96.7 83 20 120/86 99 Labs: Laboratory Tests Test 09/27/16 08:39 White Blood Count 5.8 TH/MM3 (4.0-11.0) Red Blood Count 4.23 MIL/MM3 (4.00-5.30) Hemoglobin 13.2 GM/DL (11.6-15.3) Hematocrit 39.5 % (35.0-46.0) Mean Corpuscular Volume 93.3 FL (80.0-100.0) Mean Corpuscular Hemoglobin 31.1 PG (27.0-34.0) Mean Corpuscular Hemoglobin 33.3 % Concent (32.0-36.0) Red Cell Distribution Width 14.5 % (11.6-17.2) Platelet Count 230 TH/MM3 (150-450) Mean Platelet Volume 7.5 FL (7.0-11.0) Sodium Level 136 MEQ/L (136-145) Potassium Level 3.4 MEQ/L (3.5-5.1) Chloride Level 98 MEQ/L (98-107) Carbon Dioxide Level 29.2 MEQ/L (21.0-32.0) Anion Gap 9 MEQ/L (5-15) Blood Urea Nitrogen 5 MG/DL (7-18) Creatinine 0.58 MG/DL (0.50-1.00) Estimat Glomerular Filtration 125 ML/MIN Rate (>89) Random Glucose 93 MG/DL (74-106) Calcium Level 9.3 MG/DL (8.5-10.1) Result Diagram: 09/27/16 0839 09/27/16 0839 Zana Lee MD Sep 27, 2016 19:26
[2016-09-28] VITALS (9 sets, daily range): BP systolic 102–129; BP diastolic 64–84; PULSE 81–90; RESP 16–20; TEMP 98.3–100.8; O2SAT 94–98
[2016-09-28] MEDS: HYDROmorphone HCL PF 1 MG/ML VIAL IV PUSH PRN ×5 (01:30→21:15)
[2016-09-28 06:09] LABS: INDIRECT BILIRUBIN 0.6 MG/DL (0.0-0.8)
[2016-09-28] MEDS: PANTOPRAZOLE SOD 40 MG DELAYED RELEASE TAB PO SCH (08:46)
[2016-09-28] MEDS: ACETAMINOPHEN/HYDROcodone 325 MG/5 MG TAB PO PRN ×2 (08:55→20:12)
[2016-09-28] MEDS: SODIUM CHLORIDE 0.9% FLUSH 5 ML FLUSH FLUSH SCH ×2 (08:55→20:12)
--- NOTE | 2016-09-28 15:42 | PD.CAR.PN ---
CVT Progress Note Subjective/Hospital Course: 25-year-old female with the retroperitoneal para-aortic lymphadenopathy and the likelihood lymphatic mass in her pelvis Related symptoms of nausea vomiting weight loss and possible rectal bleeding Will proceed with laparoscopic biopsy in this lady once colonoscopy and upper endoscopy are done and serologic testing is completed, likely early this coming week Full consult dictated Thanks J 09/23/16 Patient with the above noted the periaortic abdominal lymphadenopathy as well as a mesenteric pelvic area mass measuring about 4 cm in diameter again likely lymph nodes in the mesentery of the pelvis Patient is in the process of workup and when the medical workup is completed I' ll take patient to the operating room for laparoscopy and biopsy GI consult appreciated Oncology consult pending 09/24/2016 Patient with retroperitoneal lymphadenopathy underwent today CT-guided biopsy of the same Will await further results of these and this is sufficient material patient will not need surgical approach On the other hand if the material is insufficient to make the diagnosis will go ahead with laparoscopic surgery if necessary Will await for the pathology findings first 09/25/16 Needle biopsy pathology is nondiagnostic At this point there is option off the open biopsy of retroperitoneal nodes and the pelvic mesenteric mass or repeat CAT scan in about 6 months considering that this is been there for about 2 years now I discussed it with the oncologist and we agree on the above Patient and family will discuss and decide which way to go 09/26/2016 Spoken to patient at length about the options Option is still to preform a CT scan in about 6 months and see if the lymph nodes are more enlarged or any change has occurred or to proceed with surgery and open biopsy As far as lymph nodes are concerned I believe most likely the patient does have enlarged lymph nodes is a reaction to either the drug use possibly shooting into the leg or its and nonspecific inflammatory disease Of course there is a small chance that this may be a low-grade lymphoma As far as pelvic lesion is concerned this is most likely fibroid and if such will remain undisturbed but I will see that during the surgery. On the other hand if this is a mesenteric mass of any other type we'll excise it As far as liver is concerned patient clearly has a huge liver on the CAT scan and palpable correspondingly to about 2 inches below the costal margin midclavicular line. In young people this is usually due to alcohol and Tylenol abuse combined with other narcotics or both We will do liver biopsy while in surgery so patient doesn't have to make special trip for it After careful explanation of risks and benefits and possible options patient opts to have surgery and will be taken to the operating room today 09/27/2016 Status post exploration and retroperitoneal periarticular lymph node dissection and liver biopsy Abdomen is soft with active bowel sounds and incision is clean and dry Patient has been advanced to regular diet She is very hard to get to walk out of bed and is very low pain tolerance in face of previous and current IV drug abuse Plan is to mobilize the patient to prevent pneumonia Once patient needs has a bowel movement she can be discharged Pathology is pending 09/28/2016 Abdomen soft active bowel sounds incision is clean and dry Patient is tolerating by mouth diet and from my point can be discharged home any time Follow up with me 2 weeks May shower Objective: Vital Signs Date Time Temp Pulse Resp B/P Pulse Ox O2 Delivery O2 Flow Rate FiO2 09/28/16 12:00 99.2 87 17 102/65 96 09/28/16 10:21 98 21 09/28/16 08:00 100.2 88 16 129/82 97 09/28/16 04:00 99.3 84 16 119/84 94 09/28/16 00:00 98.3 84 18 109/64 96 09/27/16 20:00 96.9 84 18 105/65 96 09/27/16 18:23 97 21 09/27/16 16:00 96.4 81 18 126/81 97 Labs: Laboratory Tests Test 09/28/16 04:30 Total Bilirubin 1.0 MG/DL (0.2-1.0) Direct Bilirubin 0.4 MG/DL (0.0-0.2) Indirect Bilirubin 0.6 MG/DL (0.0-0.8) Aspartate Amino Transf 155 U/L (15-37) (AST/SGOT) Alanine Aminotransferase 126 U/L (10-53) (ALT/SGPT) Alkaline Phosphatase 117 U/L (45-117) Total Protein 7.3 GM/DL (6.4-8.2) Albumin 2.8 GM/DL (3.4-5.0) Result Diagram: 09/27/16 0839 09/27/16 0839 Zana Lee MD Sep 28, 2016 15:41
[2016-09-28] MEDS ORDERED: LACTULOSE SYRUP 20 GM/30 ML CUP PO ONE (15:45)
[2016-09-28] MEDS ORDERED: PANT40TA3 PO (15:49)
[2016-09-28] MEDS ORDERED: HYDR-3583 PO (15:49)
--- NOTE | 2016-09-28 15:50 | HHI.DCPOC ---
Discharge Care Plan Diagnosis: (1) Pelvic mass (2) Transaminitis (3) Elevated liver enzymes (4) Lymphadenopathy, retroperitoneal Goals to Promote Your Health * To prevent worsening of your condition and complications * To maintain your health at the optimal level Directions to Meet Your Goals Take your medications as prescribed Follow your dietary instruction Follow activity as directed Keep your appointments as scheduled Take your immunizations and boosters as scheduled If your symptoms worsen call your PCP, if no PCP go to Urgent Care Center or Emergency Room Smoking is Dangerous to Your Health. Avoid second hand smoke Call the 24-hour hour crisis hotline for domestic abuse at Jennifer Broderick MD Sep 28, 2016 15:50
--- NOTE | 2016-09-28 15:51 | HHI.DS ---
Discharge Summary Admission Date Sep 22, 2016 at 09:17 Discharge Date: Sep 28, 2016 Admitting Diagnosis rectal bleeding, pre-sacral mass vs infection (1) Rectal bleeding ICD Code: K62.5 (2) Elevated liver enzymes ICD Code: R74.8 (3) Lymphadenopathy, retroperitoneal ICD Code: R59.0 (4) Pelvic mass ICD Code: R19.00 (5) Transaminitis ICD Code: R74.0 (6) IVDU (intravenous drug user) ICD Code: F19.90 Procedures Laparotomy with lymph node dissection, and liver biopsy by Dr. Wadsworth Brief History - From Admission History of present illness from the admitting physician. The patient is a very pleasant 25-year female without any significant past medical history. The patient is drinking alcohol on and off heavily from approximately 13 years. And she is doing IV drug use from one year. She is using IV opioids. She is also drinking alcohol approximately half a pint of hard liquor a day. She has no other medical conditions. She has no surgery. As per patient from past 6 years she has intermittent abdominal pain. And from past few days it is getting more and it is sharp, shooting up from the lower abdominal rectal area toward the back side. She also describes a rectal prolapse whenever she strains or she passes stool it the colon comes out and it goes back to itself again and sometimes she sees blood on her tissue paper. She has some nausea and vomiting from past approximately one week which is bilious material. And she has had some discomfort in the epigastric region. She has also a fever on and off. And one time she had a very high-grade fever. She feels it usually in the morning time and it goes away after one hour. She is not losing any weight. She has no chest pain or palpitations. She denies any genitourinary symptoms. She has no menses for a long time. She came to the ER. In the emergency room she was evaluated by the emergency room physician and workup was done including abdominal and pelvic CT which shows abnormal mass in the ton-sacral area. For which the patient is recommended for admission because of fever and her condition as described above. The patient is seen with female RN and her boyfriend at bedside in the ER. CBC/BMP: 09/27/16 0839 09/27/16 0839 Significant Findings Laboratory Tests Test 09/26/16 09/27/16 09/28/16 07:24 08:39 04:30 White Blood Count 3.6 TH/MM3 (4.0-11.0) Platelet Count 141 TH/MM3 (150-450) Sodium Level 135 MEQ/L (136-145) Blood Urea Nitrogen 4 MG/DL (7-18) 5 MG/DL (7-18) Direct Bilirubin 0.4 MG/DL 0.4 MG/DL (0.0-0.2) (0.0-0.2) Aspartate Amino Transf 610 U/L (15-37) 155 U/L (15-37) (AST/SGOT) Alanine Aminotransferase 265 U/L (10-53) 126 U/L (10-53) (ALT/SGPT) Alkaline Phosphatase 172 U/L (45-117) Total Protein 8.6 GM/DL (6.4-8.2) Albumin 3.3 GM/DL 2.8 GM/DL (3.4-5.0) (3.4-5.0) Potassium Level 3.4 MEQ/L (3.5-5.1) Imaging Last Impressions Lymph Node Biopsy CT 09/24/16 1341 Signed Impressions: Service Date/Time: Saturday, September 24, 2016 15:10 - CONCLUSION: Uncomplicated CT guided biopsy of the left periaortic lymphadenopathy inferior to the left renal vein. Only small samples were able to be obtained. Colin Beck MD Abdomen/Pelvis CT 09/22/16 0646 Signed Impressions: Service Date/Time: Thursday, September 22, 2016 07:15 - CONCLUSION: 1. Multiple mildly to moderately enlarged retroperitoneal lymph nodes, most prominent in the para-aortic region of the abdomen. The lymph nodes have increased in size when compared to the prior study of January 2015. New presacral masslike retroperitoneal soft tissue density. These findings are nonspecific and may represent reactive lymph nodes related to infection. Malignancy such as lymphoma also in the differential diagnosis. 2. Moderate to severe hepatic steatosis. 3. Nonobstructing right renal calculus. 4. Left-sided fundal uterine fibroid again seen. 5. No peripancreatic inflammatory changes identified. Alex Mendez MD CT Angiography 09/22/1619 Signed Impressions: Service Date/Time: Thursday, September 22, 2016 07:15 - CONCLUSION: 1. No evidence of pulmonary embolus. 2. Mild patchy opacity in the left lower lobe indicating atelectasis versus minimal inflammatory change. No evidence of pulmonary consolidation Alex Mendez MD Chest X-Ray 09/22/16 0515 Signed Impressions: Service Date/Time: Thursday, September 22, 2016 05:16 - CONCLUSION: 1. No acute cardiopulmonary disease. Albino Hubbard MD Thoracic Spine CT 09/22/16 0000 Signed Impressions: Service Date/Time: Thursday, September 22, 2016 07:15 - CONCLUSION: Mild multilevel degenerative findings. No evidence of abscess. Alex Mendez MD Lumbar Spine CT 09/22/16 0000 Signed Impressions: Service Date/Time: Thursday, September 22, 2016 07:15 - CONCLUSION: Mild left-sided facet arthrosis at L2-3. Presacral soft tissue density, prominent retroperitoneal lymph nodes, and right-sided nonobstructing renal calculus as described on abdomen and pelvis CT report. Alex Mendez MD PE at Discharge GENERAL: This is a well-nourished, well-developed patient, in no apparent distress. CARDIOVASCULAR: Normal rate and regular rhythm without murmurs RESPIRATORY: Good respiratory efforts. Breath sounds equal and clear to auscultation bilaterally. GASTROINTESTINAL: Abdomen soft, there is a midline dressing that appears clean and intact. Appropriately tender to palpation near the surgical site. MUSCULOSKELETAL: Extremities without cyanosis, or edema. PSYCH: Appropriate mood and affect. Pt update on day of discharge Patient reports that she is feeling much better. Pain is much improved. She is moving around better. She tolerated breakfast and is ordering lunch. Per general surgery, she is cleared for discharge when she has a bowel movement. Hospital Course 25-year-old female admitted with abdominal pain, rectal bleeding and found to have retroperitoneal lymphadenopathy and a presacral mass. Evaluation and treatment course detailed below: Retroperitoneal lymphadenopathy and presacral mass: CT scan reviewed as above. - Etiology unclear. Lymphoma on the differential versus a reactive process from IV drug use. Patient underwent a CT-guided biopsy which was nondiagnostic. She was followed by general surgery and underwent exploratory laparotomy with lymph node dissection and liver biopsy. The pathology is pending which will be followed outpatient by oncology. Rectal bleeding/Abdominal pain: ? Rectal prolapse per patient. GI followed the patient. S/P EGD/Colonoscopy with findings of gastropathy likely secondary to alcoholism and internal hemorrhoids. - Continue supportive care per GI, PPI. Alternating constipation and diarrhea likely secondary to IBS. - Patient has been on IV vanc and Zosyn. All of her cultures were negative Echo neg for endocarditis. Antibiotics discontinued. History of IVDU: Patient was counseled. She denied current use. She did exhibit some narcotic seeking behavior. Transaminitis: Likely secondary to alcohol abuse. GI following. Concern for autoimmune hepatitis. Liver biopsy was done. Pathology pending. Tobacco abuse: Patient was counseled. Treated per [facility] protocol Pt Condition on Discharge: Good Discharge Disposition: Discharge Home Discharge Time: <= 30 minutes Discharge Instructions DIET: Follow Instructions for: As Tolerated, No Restrictions Activities you can perform: Regular-No Restrictions Follow up Referrals: Oncology - 1 Week with Ila Fabian MD New Medications: Hydrocodone-Acetaminophen (Hydrocodone-Acetaminophen) 10-325 mg Tab 1 TAB PO Q6H PRN PAIN #20 Ref 0 TAB Pantoprazole (Pantoprazole) 40 Mg Tab 40 MG PO DAILY #30 TAB Jennifer Broderick MD Sep 28, 2016 15:51
--- NOTE | 2016-09-28 16:32 | HHI.GIFU ---
Subjective Remarks Resting in bed. Still with significant abdominal pain- states she is very sore from her surgery. No n/v. Eating cookies. Objective Vitals I&O Vital Signs Date Time Temp Pulse Resp B/P Pulse Ox O2 Delivery O2 Flow Rate FiO2 09/28/16 12:00 99.2 87 17 102/65 96 09/28/16 10:21 98 21 09/28/16 08:00 100.2 88 16 129/82 97 09/28/16 04:00 99.3 84 16 119/84 94 09/28/16 00:00 98.3 84 18 109/64 96 09/27/16 20:00 96.9 84 18 105/65 96 09/27/16 18:23 97 21 I/O 09/27/16 09/27/16 09/27/16 09/28/16 09/28/16 09/28/16 07:00 15:00 23:00 07:00 15:00 23:00 Intake Total 150 ml 240 ml 1276 ml 240 ml Output Total 300 ml 300 ml 250 ml 350 ml 1100 ml Balance -150 ml -60 ml 1026 ml -110 ml -1100 ml Intake Oral 150 ml 240 ml 480 ml 240 ml IV Total 796 ml Output Urine Total 300 ml 300 ml 250 ml 350 ml 1100 ml # Bowel Movements 0 0 0 Laboratory Laboratory Tests Test 09/28/16 04:30 Total Bilirubin 1.0 Direct Bilirubin 0.4 Indirect Bilirubin 0.6 Aspartate Amino Transf 155 (AST/SGOT) Alanine Aminotransferase 126 (ALT/SGPT) Alkaline Phosphatase 117 Total Protein 7.3 Albumin 2.8 Imaging Last Impressions Lymph Node Biopsy CT 09/24/16 1341 Signed Impressions: Service Date/Time: Saturday, September 24, 2016 15:10 - CONCLUSION: Uncomplicated CT guided biopsy of the left periaortic lymphadenopathy inferior to the left renal vein. Only small samples were able to be obtained. Colin Beck MD Abdomen/Pelvis CT 09/22/16 0646 Signed Impressions: Service Date/Time: Thursday, September 22, 2016 07:15 - CONCLUSION: 1. Multiple mildly to moderately enlarged retroperitoneal lymph nodes, most prominent in the para-aortic region of the abdomen. The lymph nodes have increased in size when compared to the prior study of January 2015. New presacral masslike retroperitoneal soft tissue density. These findings are nonspecific and may represent reactive lymph nodes related to infection. Malignancy such as lymphoma also in the differential diagnosis. 2. Moderate to severe hepatic steatosis. 3. Nonobstructing right renal calculus. 4. Left-sided fundal uterine fibroid again seen. 5. No peripancreatic inflammatory changes identified. Alex Mendez MD CT Angiography 09/22/16 0519 Signed Impressions: Service Date/Time: Thursday, September 22, 2016 07:15 - CONCLUSION: 1. No evidence of pulmonary embolus. 2. Mild patchy opacity in the left lower lobe indicating atelectasis versus minimal inflammatory change. No evidence of pulmonary consolidation Alex Mendez MD Chest X-Ray 09/22/16 0515 Signed Impressions: Service Date/Time: Thursday, September 22, 2016 05:16 - CONCLUSION: 1. No acute cardiopulmonary disease. Albino Hubbard MD Thoracic Spine CT 09/22/16 0000 Signed Impressions: Service Date/Time: Thursday, September 22, 2016 07:15 - CONCLUSION: Mild multilevel degenerative findings. No evidence of abscess. Alex Mendez MD Lumbar Spine CT 09/22/16 0000 Signed Impressions: Service Date/Time: Thursday, September 22, 2016 07:15 - CONCLUSION: Mild left-sided facet arthrosis at L2-3. Presacral soft tissue density, prominent retroperitoneal lymph nodes, and right-sided nonobstructing renal calculus as described on abdomen and pelvis CT report. Alex Mendez MD Physical Exam HEENT: Normocephalic; atraumatic; no jaundice. CHEST: CTA CARDIAC: RRR ABDOMEN: Soft, nondistended, mild diffuse tenderness; no hepatosplenomegaly; bowel sounds are present in all four quadrants. Midline drsg d/i EXTREMITIES: No clubbing, cyanosis, or edema. SKIN: Normal; no rash; no jaundice. DEPARTMENT ADMINISTRATOR: No focal deficits; alert and oriented times three. agitated Assessment and Plan Plan ASSESSMENT: - Abdominal pain. Abdomen/Pelvis CT (09/22/16)----> 1. Multiple mildly to moderately enlarged retroperitoneal lymph nodes, most prominent in the para- aortic region of the abdomen. The lymph nodes have increased in size when compared to the prior study of January 2015. New presacral masslike retroperitoneal soft tissue density. These findings are nonspecific and may represent reactive lymph nodes related to infection. Malignancy such as lymphoma also in the differential diagnosis. 2. Moderate to severe hepatic steatosis. 3. Nonobstructing right renal calculus. 4. Left-sided fundal uterine fibroid again seen. 5. No peripancreatic inflammatory changes identified. Surgery has seen the patient and would like us to evaluate endoscopically. S/P EGD/Colonoscopy (09/23/16)----> severe gastropathy, normal endoscopy otherwise, retroflexed views revealed no abnormalities. the colonic mucosa appeared normal, retroflexed views revealed small internal hemorrhoids, revealed no abnormalities of the rectum. Pathology gastric antral mucosa with mild active chronic gastritis, gastric mucosa with mild active chronic gastritis, there is no evidence of metaplasia or dysplasia. - N/V. Pt reports daily n/v 10x a day with bilious material. RESOLVED. - Alternating constipation/diarrhea. S/P EGD/Colonoscopy as above. Now with constipation. - Transaminitis/Elevated LFTs with positive DEBORAH, ASMA, suggestive of possible autoimmune hepatitis. S/P liver biopsy yesterday, pathology pending. LFTs improved today. T. Bili 0.4, AST 155, ALT 126, Alk Phosph 117. - Abn. Imaging with retroperitoneal adenopathy. Multiple mildly to moderately enlarged retroperitoneal lymph nodes, most prominent in the para-aortic region of the abdomen. The lymph nodes have increased in size when compared to the prior study of January 2015. New presacral masslike retroperitoneal soft tissue density. These findings are nonspecific and may represent reactive lymph nodes related to infection vs. malignancy. CT guided liver biopsy (09/24/16) was no diagnostic. Went for exploratory lap. with biopsy of lymph node and pathology is pending. PLAN: - GLADIS - Await pathology from liver biopsy, lymph node - Cont. Protonix - D/W patient the importance of complete ETOH and Drug Cessation, verbalizes understanding - If patient is discharged, she will need to follow up on Friday, October 02, 2016. Instructed patient on this and provided our office number and instructed her to call if she does not hear from us on Friday. Emailed Ivania in office to notify the need for patient to come in on Friday to go over pathology report. Pt verbalizes understanding. - Pt seen and examined by Dr. Salvador and myself and this note is written on his behalf Amber Morales Sep 28, 2016 16:32
[2016-09-29 00:17] VITALS: BP 107/66; PULSE 79; RESP 18; TEMP 98.9; O2SAT 97
[2016-09-29] MEDS: HYDROmorphone HCL PF 1 MG/ML VIAL IV PUSH PRN ×2 (01:25→06:02)
[2016-09-29] MEDS: ACETAMINOPHEN/HYDROcodone 325 MG/5 MG TAB PO PRN ×2 (05:02→11:40)
[2016-09-29 05:18] VITALS: BP 120/90; PULSE 71; RESP 18; TEMP 99.9; O2SAT 96
[2016-09-29 07:35] VITALS: PULSE 103
[2016-09-29 08:00] VITALS: BP 124/92; PULSE 84; RESP 18; TEMP 99.3; O2SAT 97
[2016-09-29] MEDS: PANTOPRAZOLE SOD 40 MG DELAYED RELEASE TAB PO SCH (08:00)
[2016-09-29] MEDS: SODIUM CHLORIDE 0.9% FLUSH 5 ML FLUSH FLUSH SCH (08:01)
--- NOTE | 2016-09-29 09:14 | HHI.PR ---
Subjective Remarks Patient initially discharged yesterday. DC was held due to pain and low grade fever. Patient feeling better this morning. She is planning to go live with her parents for now. Objective Vitals Vital Signs Date Time Temp Pulse Resp B/P Pulse Ox O2 Delivery O2 Flow Rate FiO2 09/29/16 07:35 103 09/29/16 05:18 99.9 71 18 120/90 96 09/29/16 00:17 98.9 79 18 107/66 97 09/28/16 21:29 97 09/28/16 20:03 82 09/28/16 20:00 99.2 90 20 105/68 96 09/28/16 16:00 100.8 81 19 109/76 97 09/28/16 12:00 99.2 87 17 102/65 96 09/28/16 10:21 98 21 I/O 09/28/16 09/28/16 09/28/16 09/29/16 09/29/16 09/29/16 07:00 15:00 23:00 07:00 15:00 23:00 Intake Total 240 ml 480 ml 480 ml Output Total 350 ml 1800 ml Balance -110 ml -1320 ml 480 ml Intake Oral 240 ml 480 ml 480 ml Output Urine Total 350 ml 1800 ml # Voids 5 2 1 # Bowel Movements 0 0 0 Result Diagram: 09/27/16 0839 09/29/16 0640 Objective Remarks GENERAL: This is a well-nourished, well-developed patient, in no apparent distress. CARDIOVASCULAR: Normal rate and regular rhythm without murmurs RESPIRATORY: Good respiratory efforts. Breath sounds equal and clear to auscultation bilaterally. GASTROINTESTINAL: Abdomen soft, there is a midline dressing that appears clean and intact. Appropriately tender to palpation near the surgical site. MUSCULOSKELETAL: Extremities without cyanosis, or edema. PSYCH: Appropriate mood and affect. Procedures Laparotomy with lymph node dissection, and liver biopsy by Dr. Ermelinda Mendez/Natalie Problem List: (1) Rectal bleeding ICD Code: K62.5 Status: Acute (2) Elevated liver enzymes ICD Code: R74.8 Status: Acute (3) Lymphadenopathy, retroperitoneal ICD Code: R59.0 Status: Acute (4) Pelvic mass ICD Code: R19.00 Status: Acute (5) Transaminitis ICD Code: R74.0 Status: Acute (6) IVDU (intravenous drug user) ICD Code: F19.90 Status: Acute Assessment and Plan 25-year-old female with: Retroperitoneal lymphadenopathy and presacral mass: CT scan reviewed as above. - Etiology unclear. Lymphoma on the differential. Reactive process also a possibility given her history of IV drug use. - General surgery following. Status post CT-guided biopsy which was nondiagnostic. - Status post resection by general surgery. Pathology pending. Patient to follow up outpatient with Oncology and GI. Rectal bleeding/Abdominal pain: ? Rectal prolapse per patient. GI following. S/ P EGD/Colonoscopy with findings of gastropathy likely secondary to alcoholism and internal hemorrhoids. On abdominal CT the patient also has enlarging retroperitoneal lymph nodes most prominent in the para-aortic region of the abdomen. There is also a new presacral masslike retroperitoneal soft tissue density. - Continue supportive care per GI, PPI. Alternating constipation and diarrhea likely secondary to IBS. - Patient has been on IV vanc and Zosyn. All cultures so far neg. Echo neg for endocarditis. Antibiotics discontinued. History of IVDU: Patient denies current use. She was counseled with maintain abstinence. Transaminitis: Likely secondary to alcohol abuse. GI following. Concern for autoimmune hepatitis. Liver biopsy was done. Pathology pending. Tobacco abuse: Patient was counseled. CIWA per protocol. Discharge Planning DC home today. Jennifer Broderick MD Sep 29, 2016 09:14
[2016-09-29] MEDS: traMADol HCL 50 MG TAB PO PRN (10:16)
[2016-09-29 12:02] VITALS: O2SAT 98
== END 2016-09-29 13:50 | disposition home or self-care (01) | DRG 803 ==
LOC: NEPE 05:10 → NEDA 09:17 → N04B 15:34 → N06B 09-26 18:43
PROVIDERS: ADMIT Family Medicine; ATTEND Family Medicine
PROC: 0DB68ZX Excision of Stomach, Via Natural or Artificial Opening Endoscopic, Diagnostic (ICD-10-PCS; 2016-09-23)
PROC: 0DJD8ZZ Inspection of Lower Intestinal Tract, Via Natural or Artificial Opening Endoscopic (ICD-10-PCS; 2016-09-23)
PROC: 07BD3ZX Excision of Aortic Lymphatic, Percutaneous Approach, Diagnostic (ICD-10-PCS; principal; 2016-09-24)
PROC: 0FB10ZX Excision of Right Lobe Liver, Open Approach, Diagnostic (ICD-10-PCS; 2016-09-26)
PROC: 0WBH0ZX Excision of Retroperitoneum, Open Approach, Diagnostic (ICD-10-PCS; 2016-09-26)
DX: R59.0 Localized enlarged lymph nodes (principal); K62.5 Hemorrhage of anus and rectum; K75.4 Autoimmune hepatitis; R19.00 Intra-abdominal and pelvic swelling, mass and lump, unspecified site; D69.6 Thrombocytopenia, unspecified; K29.50 Unspecified chronic gastritis without bleeding; K76.0 Fatty (change of) liver, not elsewhere classified; N20.0 Calculus of kidney; K58.9 Irritable bowel syndrome, unspecified; R16.0 Hepatomegaly, not elsewhere classified; F32.9 Major depressive disorder, single episode, unspecified; F17.200 Nicotine dependence, unspecified, uncomplicated; K31.9 Disease of stomach and duodenum, unspecified; F19.10 Other psychoactive substance abuse, uncomplicated; K62.89 Other specified diseases of anus and rectum; R00.0 Tachycardia, unspecified; K21.9 Gastro-esophageal reflux disease without esophagitis; F10.20 Alcohol dependence, uncomplicated; R74.0 Nonspecific elevation of levels of transaminase and lactic acid dehydrogenase [LDH]; F12.90 Cannabis use, unspecified, uncomplicated; G89.29 Other chronic pain; D25.9 Leiomyoma of uterus, unspecified; K64.8 Other hemorrhoids; Z88.6 Allergy status to analgesic agent; Z80.7 Family history of other malignant neoplasms of lymphoid, hematopoietic and related tissues; Z80.49 Family history of malignant neoplasm of other genital organs
CPT/HCPCS: 38505; 71010; 71275; 72129; 72132; 74177; 76937; 77012; 80048; 80053; 80074; 80076; 80202; 80307; 80329; 81001; 82103; 82105; 82390; 82550; 82552; 82565; 82728; 83520; 83540; 83550; 83605; 83690; 84484; 84702; 84703; 85025; 85027; 85610; 86038; 86039; 86256; 86703; 86850; 86900; 86901; 87040; 87086; 88305; 88307; 88312; 88313; 88331; 93005; 93306; 96361; 96374; 96375; 99152; 99153; G0480; J0690; J1170; J1644; J2060; J2250; J2270; J2405; J2543; J3010; J3370; J7030; J7050; Q9967

== ENCOUNTER 2018-04-19 17:13 | Inpatient (IN) ==
[2018-04-19] MEDS ORDERED: Sod Chloride 0.9% Inj 1,000 ML IV.SIG ONE (19:56)
[2018-04-19] MEDS ORDERED: Acetaminophen 325 MG Tablet PO ONE (19:56)
--- NOTE | 2018-04-19 20:21 | ED ---
HPI General Chief Complaint: Fever Stated Complaint: Rt knee swelling/severe pain/fever Time Seen by Provider: 04/19/18 19:34 Source: patient Mode of arrival: ambulatory Limitations: no limitations History of Present Illness HPI Narrative: 27-year-old female with PMH of IVDA presents the ED for evaluation of "a few months" history of intermittent fevers, reportedly as high as 104. She also complains of intermittent dizziness with decreased appetite, nausea. She endorses occasional palpitations. She endorses occasional shortness of breath or dyspnea on exertion. She denies chest pain. She states that she has not had a period in 3 years. She denies risk of . She states that she sought treatment today after her right knee became painful. She can identify no acute injury. She rates the pain 10/10, aching, worsened by touch and range of motion. No alleviating factors reported. Mom is at bedside and states the patient has several chronic health problems which she has failed to addressed including "pelvic mass and a shadow on her thyroid." Mom also states that the patient has poor liver function secondary to chronic alcoholism. Patient states her drug of choice is Dilaudid, last use "within the last couple weeks." Related Data Home Medications Medication Instructions Recorded Confirmed No Known Home Medications 04/19/18 04/19/18 Allergies Allergy/AdvReac Type Severity Reaction Status Date / Time No Known Allergies Allergy Unverified 04/19/18 19:31 Review of Systems ROS: all other systems reviewed are negative [facility] Medical History Medical History ETOH abuse (Acute) GERD (gastroesophageal reflux disease) (Acute) IV drug abuse (Acute) Retroperitoneal abscess (Acute) Social History Social History Substance History: Active Abuse Second Hand Smoke Exposure: No Smoking Status: Former smoker Tobacco Type: Cigarettes How Often Do You Have a Drink Containing Alcohol: 4 or more times a week Recent Travel in [facility] within the Last 8 Weeks: No Recent Out of Country Travel within the Last 8 Weeks: No Substance Abuse Detail Opiates: Substance Use Status: Active Route Used Substance Abuse: Intravenously Reason for Use: Calm Down Immunization History Tetanus Immunization: >5 Years Hx Influenza Vaccine This Season: No Exam Narrative Exam Narrative: GENERAL: Thin, well-developed white female no acute distress. SKIN: Focused skin assessment warm/dry. Several pinpoint injection sites of the right AC space. HEAD: Atraumatic. Normocephalic. EYES: Pupils equal and round. No scleral icterus. No injection or drainage. ENT: No nasal bleeding or discharge. Mucous membranes pink and moist. NECK: Trachea midline. No JVD. CARDIOVASCULAR: Regular rate and rhythm. No murmur appreciated. RESPIRATORY: No accessory muscle use. Clear to auscultation. Breath sounds equal bilaterally. GASTROINTESTINAL: Abdomen soft, non-tender, nondistended. Hepatic and splenic margins not palpable. MUSCULOSKELETAL: No obvious deformities. No clubbing. No cyanosis. No edema. FOCUSED RIGHT LOWER EXTREMITY EXAM: 2+ radial pulse. Homans sign positive. Tender to palpation the posterior aspect of the knee. Patient is able to flex beyond 90 and extend to 0. Neurovascularly intact distally. NEUROLOGICAL: Awake and alert. No obvious cranial nerve deficits. Motor grossly within normal limits. Normal speech. PSYCHIATRIC: Appropriate mood and affect; insight and judgment normal. Course Initial Documented Vital Signs Temperature 101.4 F H 04/19/18 17:46 Pulse Rate 94 H 04/19/18 17:46 Respiratory Rate 20 04/19/18 17:46 Blood Pressure 117/77 04/19/18 17:46 Pulse Oximetry 99 04/19/18 17:46 Last Documented Vital Signs Temperature 98.8 F 04/20/18 08:34 Pulse Rate 77 04/20/18 08:34 Respiratory Rate 18 04/20/18 08:34 Blood Pressure 116/88 04/20/18 08:34 Pulse Oximetry 98 04/20/18 08:34 Medical Decision Making [facility] Narrative Medical decision making narrative: 27-year-old female with PMH of IVDA presents the ED for evaluation of a few months history of intermittent fevers, palpitations, shortness of breath. She sought treatment today because her right knee has been hurting her for 3 days. Patient is febrile, temp 101 on presentation. Pulse 93, O2 sats 98% on room air with respiratory rate of 20. Physical exam reveals a thin white female in no acute distress. There are track gilbert on her arms. No appreciable M/R/G. Abdomen soft and nontender. She has positive Homans sign and tenderness to palpation of the palpable popliteal area of the right knee, otherwise unremarkable. IV was established. Blood cultures were obtained. EKG rate 94, sinus rhythm. ME interval 148, QRS 86, QTc 413 ms. Normal axis. No acute ST changes. Reviewed by Dr. Adams. Troponin negative 1. CXR: No acute cardiopulmonary process. D-dimer: 0.79. CT of the brain: No acute intracranial findings. X-ray of the right knee: Small to moderate joint effusion Ultrasound right lower extremity: No evidence of DVT. CBC: No leukocytosis or anemia. CMP: Bilirubin 1.1, AST 169, ALT 112, chronic according to chart review. TSH 0.869. UA: No culture indicated. Given elevated d-dimer CTA chest ordered and pending. The patient has significant risk factors for endocarditis. Unasyn and vancomycin were initiated. I spoke with the resident team who agreed to do accept the patient to the medicine service. Please see medicine notes for disposition. Medical Screen Exam Complete: Yes Emergency Medical Condition: Yes Differential Diagnosis Differential Diagnosis: DVT versus knee effusion versus PE versus infectious endocarditis versus other Medical Records Medical records reviewed: Yes I reviewed the patient's medical records. Negative hepatitis testing 09/22/16 Lab Data Result diagrams: 04/19/18 20:00 04/19/18 20:00 POC Results POC Urine Results Negative Lab Results 04/19/18 04/19/18 04/19/18 Range/Units 20:00 20:00 20:00 WBC 5.8 (4.0-11.0) th/mm3 RBC 4.47 (4.00-5.30) mil/mm3 Hgb 13.7 (11.6-15.3) gm/dL Hct 39.8 (35.0-46.0) % MCV 89.1 (80.0-100.0) fL MCH 30.7 (27.0-34.0) pg MCHC 34.4 (32.0-36.0) % RDW 15.2 (11.6-17.2) % Plt Count 132 L (150-450) th/mm3 MPV 7.3 (7.0-11.0) fL Neut % (Auto) 69.0 (16.0-70.0) % Lymph % (Auto) 18.6 (9.0-44.0) % [place] % (Auto) 10.6 H (0.0-8.0) % Eos % (Auto) 1.1 (0.0-4.0) % Baso % (Auto) 0.7 (0.0-2.0) % Neut # (Auto) 4.0 (1.8-7.7) th/mm3 Lymph # (Auto) 1.1 (1.0-4.8) th/mm3 [place] # (Auto) 0.6 (0.0-0.9) th/mm3 Eos # (Auto) 0.1 (0.0-0.4) th/mm3 Baso # (Auto) 0.0 (0.0-0.2) th/mm3 WBC Differential . Differential Comment Auto diff final D-Dimer Quant (PE/DVT) (0.00-0.50) mg/L FEU Sodium 131 L (136-145) meq/L Potassium 3.5 (3.5-5.1) meq/L Chloride 93 L (98-107) meq/L Carbon Dioxide 28.8 (21.0-32.0) meq/L Anion Gap 9 (5-15) meq/L BUN 6 L (7-18) mg/dL Creatinine 0.73 (0.50-1.00) mg/dL Estimated GFR Greater than 89 (>89) mL/min Random Glucose 90 (74-106) mg/dL Lactic Acid 0.8 (0.4-2.0) mmol/L Calcium 9.0 (8.5-10.1) mg/dL Total Bilirubin 1.1 H (0.2-1.0) mg/dL AST 169 H (15-37) U/L ALT 112 H (10-53) U/L Alkaline Phosphatase 154 H (45-117) U/L Troponin I (0.02-0.05) ng/mL Total Protein 10.0 H (6.4-8.2) g/dL Albumin 3.8 (3.4-5.0) g/dL TSH (0.358-3.740) uIU/mL Urine Color (Yellw/Straw) Urine Clarity (Clear) Urine pH (5.0-8.5) Ur Specific [place] (1.002-1.035) Urine Protein (Neg-Trace) mg/dL Urine Glucose (UA) (Negative) mg/dL Urine Ketones (Negative) mg/dL Urine Occult Blood (Negative) Urine Nitrate (Negative) Urine Bilirubin (Negative) Urine Urobilinogen (Less than 2) mg/dL Ur Leukocyte Esterase (Negative) Urine RBC (0-3) /hpf Urine WBC (0-5) /hpf Ur Squamous Epith Cells (0-5) /hpf Urine Mucus (Occasional) /lpf Micro UA Comment Ur Microscopic Review Urine Culture Comments Urine Opiates Screen (Neg) Ur Barbiturates Screen (Neg) Ur Amphetamines Screen (Neg) U Benzodiazepines Scrn (Neg) Urine Cocaine Screen (Neg) U Cannabinoids Screen (Neg) 04/19/18 04/19/18 04/19/18 Range/Units 20:00 20:20 20:20 WBC (4.0-11.0) th/mm3 RBC (4.00-5.30) mil/mm3 Hgb (11.6-15.3) gm/dL Hct (35.0-46.0) % MCV (80.0-100.0) fL MCH (27.0-34.0) pg MCHC (32.0-36.0) % RDW (11.6-17.2) % Plt Count (150-450) th/mm3 MPV (7.0-11.0) fL Neut % (Auto) (16.0-70.0) % Lymph % (Auto) (9.0-44.0) % [place] % (Auto) (0.0-8.0) % Eos % (Auto) (0.0-4.0) % Baso % (Auto) (0.0-2.0) % Neut # (Auto) (1.8-7.7) th/mm3 Lymph # (Auto) (1.0-4.8) th/mm3 [place] # (Auto) (0.0-0.9) th/mm3 Eos # (Auto) (0.0-0.4) th/mm3 Baso # (Auto) (0.0-0.2) th/mm3 WBC Differential Differential Comment D-Dimer Quant (PE/DVT) (0.00-0.50) mg/L FEU Sodium (136-145) meq/L Potassium (3.5-5.1) meq/L Chloride (98-107) meq/L Carbon Dioxide (21.0-32.0) meq/L Anion Gap (5-15) meq/L BUN (7-18) mg/dL Creatinine (0.50-1.00) mg/dL Estimated GFR (>89) mL/min Random Glucose (74-106) mg/dL Lactic Acid (0.4-2.0) mmol/L Calcium (8.5-10.1) mg/dL Total Bilirubin (0.2-1.0) mg/dL AST (15-37) U/L ALT (10-53) U/L Alkaline Phosphatase (45-117) U/L Troponin I Less than 0.02 L Cancelled (0.02-0.05) ng/mL Total Protein (6.4-8.2) g/dL Albumin (3.4-5.0) g/dL TSH 0.869 (0.358-3.740) uIU/mL Urine Color Karma (Yellw/Straw) Urine Clarity Hazy H (Clear) Urine pH 6.0 (5.0-8.5) Ur Specific [place] 1.026 (1.002-1.035) Urine Protein Negative (Neg-Trace) mg/dL Urine Glucose (UA) Negative (Negative) mg/dL Urine Ketones Negative (Negative) mg/dL Urine Occult Blood Small H (Negative) Urine Nitrate Negative (Negative) Urine Bilirubin Negative (Negative) Urine Urobilinogen 4 or greater (Less than 2) mg/dL Ur Leukocyte Esterase Negative (Negative) Urine RBC 5 H (0-3) /hpf Urine WBC 2 (0-5) /hpf Ur Squamous Epith Cells 4 (0-5) /hpf Urine Mucus Moderate H (Occasional) /lpf Micro UA Comment Culture not ind Ur Microscopic Review Not Reportable Urine Culture Comments Culture not ind Urine Opiates Screen (Neg) Ur Barbiturates Screen (Neg) Ur Amphetamines Screen (Neg) U Benzodiazepines Scrn (Neg) Urine Cocaine Screen (Neg) U Cannabinoids Screen (Neg) 04/19/18 04/20/18 Range/Units 20:20 06:15 WBC (4.0-11.0) th/mm3 RBC (4.00-5.30) mil/mm3 Hgb (11.6-15.3) gm/dL Hct (35.0-46.0) % MCV (80.0-100.0) fL MCH (27.0-34.0) pg MCHC (32.0-36.0) % RDW (11.6-17.2) % Plt Count (150-450) th/mm3 MPV (7.0-11.0) fL Neut % (Auto) (16.0-70.0) % Lymph % (Auto) (9.0-44.0) % [place] % (Auto) (0.0-8.0) % Eos % (Auto) (0.0-4.0) % Baso % (Auto) (0.0-2.0) % Neut # (Auto) (1.8-7.7) th/mm3 Lymph # (Auto) (1.0-4.8) th/mm3 [place] # (Auto) (0.0-0.9) th/mm3 Eos # (Auto) (0.0-0.4) th/mm3 Baso # (Auto) (0.0-0.2) th/mm3 WBC Differential Differential Comment D-Dimer Quant (PE/DVT) 0.79 H (0.00-0.50) mg/L FEU Sodium (136-145) meq/L Potassium (3.5-5.1) meq/L Chloride (98-107) meq/L Carbon Dioxide (21.0-32.0) meq/L Anion Gap (5-15) meq/L BUN (7-18) mg/dL Creatinine (0.50-1.00) mg/dL Estimated GFR (>89) mL/min Random Glucose (74-106) mg/dL Lactic Acid (0.4-2.0) mmol/L Calcium (8.5-10.1) mg/dL Total Bilirubin (0.2-1.0) mg/dL AST (15-37) U/L ALT (10-53) U/L Alkaline Phosphatase (45-117) U/L Troponin I (0.02-0.05) ng/mL Total Protein (6.4-8.2) g/dL Albumin (3.4-5.0) g/dL TSH (0.358-3.740) uIU/mL Urine Color (Yellw/Straw) Urine Clarity (Clear) Urine pH (5.0-8.5) Ur Specific [place] (1.002-1.035) Urine Protein (Neg-Trace) mg/dL Urine Glucose (UA) (Negative) mg/dL Urine Ketones (Negative) mg/dL Urine Occult Blood (Negative) Urine Nitrate (Negative) Urine Bilirubin (Negative) Urine Urobilinogen (Less than 2) mg/dL Ur Leukocyte Esterase (Negative) Urine RBC (0-3) /hpf Urine WBC (0-5) /hpf Ur Squamous Epith Cells (0-5) /hpf Urine Mucus (Occasional) /lpf Micro UA Comment Ur Microscopic Review Urine Culture Comments Urine Opiates Screen Neg (Neg) Ur Barbiturates Screen Neg (Neg) Ur Amphetamines Screen Neg (Neg) U Benzodiazepines Scrn Neg (Neg) Urine Cocaine Screen Neg (Neg) U Cannabinoids Screen Neg (Neg) Imaging Data Radiologist's impression: Chest X-Ray 04/19/18 19:50 CONCLUSION: No acute cardiopulmonary disease identified. Knee X-Ray 04/19/18 20:09 CONCLUSION: Small to moderate-sized right knee joint effusion. Venous Doppler Study 04/19/18 20:11 CONCLUSION: No evidence of right lower extremity DVT. Head CT 04/19/18 20:15 CONCLUSION: No evidence of acute intracranial findings. . Chest CTA 04/19/18 21:13 CONCLUSION: This study is negative for pulmonary embolism. Discharge Plan Discharge Disposition Patient Disposition: 30 Still Patient Physicians Team ED Provider: Alisa Adams ED Midlevel Provider: Jayla Jose Primary Care Provider: Primary Care Paulina Rodriguez Attending Provider: Harmony Daily Discharge Interventions Interventions: ED Discharge Assessment Last Done: 04/20/18 02:03 Vital Signs Last Done: 04/19/18 17:50 Status ED Status: Left Department Discharge Information Discharge Date/Time: 04/20/18 02:04
[2018-04-19 20:25] LABS: Baso % (Auto) 0.7 % (0.0-2.0); Eos # (Auto) 0.1 th/mm3 (0.0-0.4); Eos % (Auto) 1.1 % (0.0-4.0); Hematocrit 39.8 % (35.0-46.0); Hemoglobin 13.7 gm/dL (11.6-15.3); Lymph # (Auto) 1.1 th/mm3 (1.0-4.8); Lymph % (Auto) 18.6 % (9.0-44.0); Mean Corpuscular HGB Conc 34.4 % (32.0-36.0); Mean Corpuscular Hemoglobin 30.7 pg (27.0-34.0); Mean Corpuscular Volume 89.1 fL (80.0-100.0); Mean Platelet Volume 7.3 fL (7.0-11.0); Mono # (Auto) 0.6 th/mm3 (0.0-0.9); Mono % (Auto) 10.6 % (0.0-8.0); Platelet Count 132 th/mm3 (150-450); Red Blood Count 4.47 mil/mm3 (4.00-5.30); Red Cell Distribution Width 15.2 % (11.6-17.2); White Blood Count 5.8 th/mm3 (4.0-11.0)
--- NOTE | 2018-04-19 20:33 | XR ---
EXAM DATE: 04/19/2018 8:27 PM EDT AGE/SEX: 27 years / Female INDICATIONS: Pain. CLINICAL DATA: This is the patient's initial encounter. Patient reports that signs and symptoms have been present for 4 - 6 days and indicates a pain score of 10/10. MEDICAL/SURGICAL HISTORY: None. None. [place]PAR[place]: [facility] [place]4VWS[place] 08/04/2012. . FINDINGS: 4 views of the right knee. Bone alignment within normal limits. No evidence of fracture. No evidence of joint narrowing. Small to moderate-sized joint effusion. CONCLUSION: Small to moderate-sized right knee joint effusion. Electronically signed by: Alex Mendez MD 04/19/2018 8:31 PM EDT
--- NOTE | 2018-04-19 20:34 | XR ---
EXAM DATE: 04/19/2018 8:26 PM EDT AGE/SEX: 27 years / Female INDICATIONS: Fever. CLINICAL DATA: This is the patient's initial encounter. Patient reports that signs and symptoms have been present for 3 days and indicates a pain score of 0/10. MEDICAL/SURGICAL HISTORY: None. None. [place] [facility] [place] . FINDINGS: Single AP view of the chest. The lungs are clear. Cardiomediastinal silhouette within norm al limits. No evidence of pleural effusion or pneumothorax. CONCLUSION: No acute cardiopulmonary disease identified. Electronically signed by: Alex Mendez MD 04/19/2018 8:32 PM EDT
[2018-04-19 20:43] LABS: Bilirubin,Urine Negative (Negative); Clarity,Urine Hazy (Clear); Color,Urine Amber (Yellw/Straw); Glucose,Urine (UA) Negative (Negative); Leukocyte Esterase,Urine Negative (Negative); Mucus,Urine Moderate /lpf (Occasional); Nitrite,Urine Negative (Negative); Specific Gravity,Urine 1.026 (1.002-1.035); Squamous Epithelial Cell,Urine 4 /hpf (0-5); Urobilinogen,Urine 4 or Greater mg/dL (Less than 2)
[2018-04-19 20:46] LABS: Alanine Aminotransferase 112 U/L (10-53); Albumin 3.8 g/dL (3.4-5.0); Anion Gap 9 meq/L (5-15); Aspartate Aminotransferase 169 U/L (15-37); Carbon Dioxide 28.8 meq/L (21.0-32.0); Chloride 93 meq/L (98-107); Glomerular Filtration Rate Greater Than 89 mL/min (>89); Glucose,Random 90 mg/dL (74-106); Potassium 3.5 meq/L (3.5-5.1); Sodium 131 meq/L (136-145)
--- NOTE | 2018-04-19 20:47 | CT ---
EXAM DATE: 04/19/2018 8:41 PM EDT AGE/SEX: 27 years / Female INDICATIONS: Dizziness CLINICAL DATA: This is the patient's initial encounter. Patient reports that signs and symptoms have been present for 1 day and indicates a pain score of 0/10. MEDICAL/SURGICAL HISTORY: Gastroesophageal reflux disease. Alcohol and IV drug abuse None. RADIATION DOSE: 34.94 CTDI (mGy) COMPARISON: No prior exams available for comparison. TECHNIQUE: CT of the head without contrast. Using automated exposure control and adjustment of the mA and/or kV according to patient size, radiation dose was kept as low as reasonably achievable to ob tain optimal diagnostic quality images. DICOM format image data is available electronically for revi ew and comparison. FINDINGS: Cerebrum: The ventricles are normal for age. No evidence of midline shift, mass lesion, hemorrhage or acute infarction. No extraaxial fluid collections are seen. Posterior Fossa: The cerebellum and brainstem are intact. The 4th ventricle is midline. The cerebe llopontine angle is unremarkable. Extracranial: The visualized portion of the orbits is intact. Skull: The calvaria is intact. No evidence of skull fracture. CONCLUSION: No evidence of acute intracranial findings. . Electronically signed by: Alex Mendez MD 04/19/2018 8:46 PM EDT
[2018-04-19 20:52] LABS: Alkaline Phosphatase 154 U/L (45-117); Blood Urea Nitrogen 6 mg/dL (7-18)
[2018-04-19 21:00] LABS: Thyroid Stimulating Hormone 0.869 uIU/mL (0.358-3.740)
--- NOTE | 2018-04-19 21:31 | US ---
EXAM DATE: 04/19/2018 9:09 PM EDT AGE/SEX: 27 years / Female INDICATIONS: Right leg pain. CLINICAL DATA: This is the patient's initial encounter. Patient reports that signs and symptoms have been present for 2 days and indicates a pain score of 4/10. MEDICAL/SURGICAL HISTORY: Gastroesophageal reflux disease. Retroperitoneal abscess. None. COMPARISON: No prior exams available for comparison. TECHNIQUE: Venous ultrasound of both lower extremities was performed from the inguinal ligament to t he proximal calf. Real-time, color Doppler and spectral tracing, compression and augmentation techni ques were used. FINDINGS: Normal compression of the deep venous system from the inguinal region to the proximal calf . No echogenic clot is seen. Normal response of the venous system to augmentation and respiration. CONCLUSION: No evidence of right lower extremity DVT. Electronically signed by: Alex Mendez MD 04/19/2018 9:29 PM EDT
[2018-04-19] MEDS ORDERED: Piperacil/Tazo 4.5 GM Premix 4.5 GM/100 ML BAG IV.SIG ONE (22:06)
[2018-04-19] MEDS ORDERED: Vancomycin Inj 1 GM/200 ML PIGGYBACK IV.SIG ONE (22:06)
[2018-04-19] MEDS ORDERED: Ampicillin/Sulbactam Inj 1,500 MG in Sodium Chloride 0.9% Inj 100 ML IV.SIG ONE (22:09)
[2018-04-19] MEDS ORDERED: Vancomycin Inj 1,000 MG in Sodium Chlor 0.9% Inj 250 ML IV.SIG ONE (23:00)
--- NOTE | 2018-04-19 23:23 | CT ---
EXAM DATE: 04/19/2018 11:17 PM EDT AGE/SEX: 27 years / Female INDICATIONS: Shortness of breath, fever. CLINICAL DATA: This is the patient's initial encounter. Patient reports that signs and symptoms have been present for 1 day and indicates a pain score of 3/10. MEDICAL/SURGICAL HISTORY: Gastroesophageal reflux disease. None. RADIATION DOSE: 6.96 CTDI (mGy) COMPARISON: [facility] – [place]UL[place]IO[place], 09/22/2016. . TECHNIQUE: Volumetric scanning was performed using a multi-row detector CT scanner during bolus infu ryan of 75 ml Omnipaque 350 (iohexol) nonionic water-soluble contrast as a single exam dose. The fenrie a was post processed with a variety of visualization algorithms including full volume maximum intensi ty projection and sliding thin slab reformation. Using automated exposure control and adjustment of the mA and/or kV according to patient size, radiation dose was kept as low as reasonably achievable t o obtain optimal diagnostic quality images. DICOM format image data is available electronically for review and comparison. FINDINGS: Pulmonary Arteries: No filling defects are seen in the pulmonary arteries out to the subsegmental ve ssels. The left and right pulmonary arteries are normal in diameter. Lung: No infiltrates seen. Effusion: None. Mediastinum: No evidence of mediastinal or hilar adenopathy. Other: The axilla is unremarkable. CONCLUSION: This study is negative for pulmonary embolism. Electronically signed by: Colin Iglesias MD 04/19/2018 11:22 PM EDT
[2018-04-20] MEDS ORDERED: Acetaminophen 325 MG Tablet PO PRN (00:03)
--- NOTE | 2018-04-20 00:11 | P.HPFP ---
History of Present Illness Primary Care Physician: No Primary Care Physician Chief Complaint: Intermittent fever and knee pain History of Present Illness: She is a 27-year-old female with a history of IV drug abuse who presents with intermittent fever and knee pain. She has a history of intermittent fevers over the past year that occur daily with a high of 106 taken orally. They are associated with chills and sweats. She typically wakes up with fever every day. During this time she also has had nausea and vomiting. Sometimes she vomits up to 12 times per day, but she typically has some vomiting every day. She has had decreased appetite for this past year as well. She has had some fluctuations in her weight, but no major weight changes. She has also had some symptoms of acid reflux for the past few years. She has some associated shortness of breath, palpitations, and lightheadedness, these symptoms have also occurred intermittently over the past year. She has been using IV Dilaudid for the past few years. She also has a history of alcohol abuse and drinks about 1 pint per day of liquor. She does not go to the doctor regularly, and reports no chronic medical problems , and takes no medications. She reports her knee pain has been increasing over the past week. She had no injury to the knee and rated her pain as 10 out of 10 earlier in the ED. Her pain is worse with ambulation. She currently has no knee pain. She received a dose of vancomycin and Unasyn in the ED. - Diagnosis (1) Fever (2) IV drug abuse (3) Alcohol abuse (4) Fatty liver determined by biopsy Review of Systems Constitutional: Reports anorexia, Reports chills, Reports fever(s), Reports night sweats, Denies weight gain, Denies weight loss Eyes: Denies change in vision Ears, Nose, Mouth, and Throat: Denies abnormal hearing, Denies mouth lesions Cardiovascular: Reports irregular heart rhythm, Reports lightheadedness, Reports shortness of breath, Denies chest pain Respiratory: Denies chest congestion, Denies cough Gastrointestinal: Reports nausea, Reports vomiting, Denies abdominal pain, Denies change in stools, Denies constipation Hematologic/Lymphatic: Reports easy bruising PMFSH - History History Provided By: Patient - Medical History Medical History: Medical History (Last Updated 04/19/18 @ 19:36 by Taniya Geronimo) ETOH abuse GERD (gastroesophageal reflux disease) IV drug abuse Retroperitoneal abscess - Tobacco History Second Hand Smoke Exposure: Yes Tobacco Use In Past 30 Days: Yes Smoking Status: Current some day smoker Tobacco Type: Cigarettes - Alcohol History How Often Do You Have a Drink Containing Alcohol: 4 or more times a week - Substance Use History Substance History: Active Abuse - Substance Use Type Opiates Status: Active Route Used: Intravenously Reason for Use: Calm Down - Travel History Recent Travel in the [place] Within the Last 8 Weeks: No Recent Travel Out of the Country Within the Last 8 Weeks: No - Immunization History Tetanus Immunization: >5 Years Hx Influenza Vaccine This Season: No Medications and Allergies Active Medications: Active Medications Vancomycin HCl 1,000 mg/ (Sodium Chloride) 250 mls @ 250 mls/hr IV.SIG ONCE ONE Stop: 04/19/18 23:59 Allergies Allergy/AdvReac Type Severity Reaction Status Date / Time No Known Allergies Allergy Unverified 04/19/18 19:31 Home Medications Medication Instructions Recorded Confirmed Type No Known Home Medications 04/19/18 04/19/18 History Exam Vital signs: Vital Signs 04/19/18 17:46 04/19/18 17:50 04/19/18 21:27 Temperature 101.4 F H 101 F H Pulse Rate 94 H 93 H Respiratory Rate 20 20 20 Blood Pressure 117/77 127/87 Pulse Oximetry 99 98 Intake & Output 04/19/18 04/19/18 04/20/18 06:59 18:59 06:59 Intake Total 1000 / 1000 Balance 1000 / 1000 Weight 48.988 kg Intake: IV 1000 / 1000 NS Inj 1,000 ML @ Wide Open IV. 1000 / 1000 SIG BOLUS ONE Rx#:[id number] Narrative: General: Well-developed, alert and oriented, and in no acute distress. Appears stated age. HEENT: Atraumatic, non-icteric sclera and no conjunctival injection, moist mucous membranes Neck: Supple, trachea midline, Cardiac: Regular rate and rhythm without murmurs or gallops Pulmonary: Non-labored breathing. Lungs clear to auscultation bilaterally with good air movement Abdomen: Normal bowel sounds, soft and non-tender without rebound or guarding Extremities: No edema, 2+ pedal pulses, capillary refill less than 2 seconds. Skin: Track gilbert on the arms. No rashes or lesions to the hands and feet Right knee: Nontender to palpation, mild swelling compared to the left and moderately sized effusion. Normal range of motion Results - Labs Result diagrams: 04/19/18 20:00 04/19/18 20:00 Abnormal lab results 04/19/18 04/19/18 04/19/18 Range/Units 20:00 20:00 20:00 Plt Count 132 L (150-450) th/mm3 [place] % (Auto) 10.6 H (0.0-8.0) % D-Dimer Quant (PE/DVT) (0.00-0.50) mg/L FEU Sodium 131 L (136-145) meq/L Chloride 93 L (98-107) meq/L BUN 6 L (7-18) mg/dL Total Bilirubin 1.1 H (0.2-1.0) mg/dL AST 169 H (15-37) U/L ALT 112 H (10-53) U/L Alkaline Phosphatase 154 H (45-117) U/L Troponin I (0.02-0.05) ng/mL Total Protein 10.0 H (6.4-8.2) g/dL Urine Clarity Hazy H (Clear) Urine Occult Blood Small H (Negative) Urine RBC 5 H (0-3) /hpf Urine Mucus Moderate H (Occasional) /lpf 04/19/18 04/19/18 Range/Units 20:20 20:20 Plt Count (150-450) th/mm3 [place] % (Auto) (0.0-8.0) % D-Dimer Quant (PE/DVT) 0.79 H (0.00-0.50) mg/L FEU Sodium (136-145) meq/L Chloride (98-107) meq/L BUN (7-18) mg/dL Total Bilirubin (0.2-1.0) mg/dL AST (15-37) U/L ALT (10-53) U/L Alkaline Phosphatase (45-117) U/L Troponin I Less than 0.02 L (0.02-0.05) ng/mL Total Protein (6.4-8.2) g/dL Urine Clarity (Clear) Urine Occult Blood (Negative) Urine RBC (0-3) /hpf Urine Mucus (Occasional) /lpf Short CBC 04/19/18 Range/Units 20:00 WBC 5.8 (4.0-11.0) th/mm3 Hgb 13.7 (11.6-15.3) gm/dL Hct 39.8 (35.0-46.0) % Plt Count 132 L (150-450) th/mm3 BMP 04/19/18 20:00 Sodium 131 L Potassium 3.5 Chloride 93 L Carbon Dioxide 28.8 BUN 6 L Creatinine 0.73 Calcium 9.0 Cardiac Enzymes 04/19/18 04/19/18 Range/Units 20:20 20:20 Troponin I Less than 0.02 L Cancelled (0.02-0.05) ng/mL Liver Function 04/19/18 Range/Units 20:00 Total Bilirubin 1.1 H (0.2-1.0) mg/dL AST 169 H (15-37) U/L ALT 112 H (10-53) U/L Alkaline Phosphatase 154 H (45-117) U/L Albumin 3.8 (3.4-5.0) g/dL Urine 04/19/18 Range/Units 20:00 Urine Color Karma (Yellw/Straw) Urine Clarity Hazy H (Clear) Urine pH 6.0 (5.0-8.5) Ur Specific [place] 1.026 (1.002-1.035) Urine Protein Negative (Neg-Trace) mg/dL Urine Glucose (UA) Negative (Negative) mg/dL - Imaging Impressions Chest X-Ray 04/19/18 19:50 CONCLUSION: No acute cardiopulmonary disease identified. Knee X-Ray 04/19/18 20:09 CONCLUSION: Small to moderate-sized right knee joint effusion. Venous Doppler Study 04/19/18 20:11 CONCLUSION: No evidence of right lower extremity DVT. Head CT 04/19/18 20:15 CONCLUSION: No evidence of acute intracranial findings. . Chest CTA 04/19/18 21:13 CONCLUSION: This study is negative for pulmonary embolism. Caprini VTE Risk Assessment Caprini VTE Risk Assessment: No/Low Risk (score <= 1) Caprini Risk Assessment Model: Point Value = 1 Point Value = 2 Point Value = 3 Point Value = 5 Age 41-60 Minor surgery BMI > 25 kg/m2 Swollen legs Varicose veins or History of unexplained or recurrent spontaneous Oral contraceptives or hormone replacement Sepsis (< 1 month) Serious lung disease, including pneumonia (< 1 month) Abnormal pulmonary function Acute myocardial infarction Congestive heart failure (< 1 month) History of inflammatory bowel disease Medical patient at bed rest Age 61-74 Arthroscopic surgery Major open surgery (> 45 min) Laparoscopic surgery (> 45 min) Malignancy Confined to bed (> 72 hours) Immobilizing plaster cast Central venous access Age >= 75 History of VTE Family history of VTE Factor V Leiden Prothrombin [id number] Lupus anticoagulant Anticardiolipin antibodies Elevated serum homocysteine Heparin-induced thrombocytopenia Other congenital or acquired thrombophilia Stroke (< 1 month) Elective arthroplasty Hip, pelvis, or leg fracture Acute spinal cord injury (< 1 month) Prophylaxis Regimen: Total Risk Factor Score Risk Level Prophylaxis Regimen 0-1 Low Early ambulation 2 Moderate Order ONE of the following: *Sequential Compression Device (SCD) *Heparin 5000 units SQ BID 3-4 Higher Order ONE of the following medications: *Heparin 5000 units SQ TID *Enoxaparin/Lovenox 40 mg SQ daily (WT < 150 kg, CrCl > 30 mL/min) *Enoxaparin/Lovenox 30 mg SQ daily (WT < 150 kg, CrCl > 10-29 mL/min) *Enoxaparin/Lovenox 30 mg SQ BID (WT < 150 kg, CrCl > 30 mL/min) AND/OR *Sequential Compression Device (SCD) 5 or more Highest Order ONE of the following medications: *Heparin 5000 units SQ TID (Preferred with Epidurals) *Enoxaparin/Lovenox 40 mg SQ daily (WT < 150 kg, CrCl > 30 mL/min) *Enoxaparin/Lovenox 30 mg SQ daily (WT < 150 kg, CrCl > 10-29 mL/min) *Enoxaparin/Lovenox 30 mg SQ BID (WT < 150 kg, CrCl > 30 mL/min) AND *Sequential Compression Device (SCD) Assessment and Plan - Assessment (1) Fever Code(s): R50.9 - Fever, unspecified Status: Acute (2) IV drug abuse Code(s): F19.10 - Other psychoactive substance abuse, uncomplicated Status: Acute (3) Alcohol abuse Code(s): F10.10 - Alcohol abuse, uncomplicated Status: Acute (4) Fatty liver determined by biopsy Code(s): K76.0 - Fatty (change of) liver, not elsewhere classified Status: Acute - Assessment and Plan Patient is a 27-year-old female with a history of IV drug abuse who presents with approximately 1 year of intermittent fever with a reported high of 106 taken orally. -Intermittent fever: Due to her IV drug abuse and the long-standing nature of this fever endocarditis is an important possibility. SIRS criteria met with temperature greater than 100.4 and heart rate greater than 90 Lactic acid of 0.8 Vancomycin and Rocephin to cover causes of endocarditis Blood cultures 3 pending (collected around 1999 on 03/19) Transthoracic echocardiogram to assess for endocarditis Tylenol as needed fever -Knee pain X-ray showed moderate effusion without evidence of acute fracture Septic joint is a possibility due to her IV drug abuse and possible infection, however her pain is minimal at this time which makes this unlikely - N/V: reports N/V daily for the past year along with decreased appetite She has had no weight loss over this period of time Zofran 4 mg ODT if able to tolerate p.o. and IV if unable to tolerate p.o. She has a history of acid reflux, start PO Protonix 40mg daily - IVDA: Current IV Dilaudid use Hepatitis C ordered Patient verbally consented to HIV testing, we will obtain written consents Urine drug screen ordered -Alcohol abuse: Alcohol consumption of about 1 pack per day. This puts her at risk for withdrawal. [facility] protocol -Elevated d-dimer at 0.79 Negative ultrasound of the lower extremity Chest x-ray showed no acute processes CTA negative for pulmonary Respiratory status is stable - Fatty liver disease She has a history of biopsy-proven fatty liver disease, likely alcoholic due to her history She has elevation of liver enzymes, we will continue to follow Fluids: IV to Hep-Lock Electrolytes: monitor and replete as needed Nutrition: Regular adult diet GI prophylaxis: On Protonix for other purposes VTE prophylaxis: Not indicated due to low risk
[2018-04-20] MEDS ORDERED: Vancomycin Consult Pharmacy OTHER PRN (00:23)
[2018-04-20] MEDS ORDERED: Haloperidol Inj 5 MG/ML Ampul IV.PUSH PRN ×2 (00:56→16:51)
[2018-04-20] MEDS ORDERED: LORazepam 1 MG Tablet PO PRN (00:56)
[2018-04-20 06:35] LABS: Amphetamine Screen,Urine Neg (Neg); Barbiturate Screen,Urine Neg (Neg); Cannabinoid Screen,Urine Neg (Neg); Cocaine Screen,Urine Neg (Neg)
[2018-04-20 06:40] LABS: Opiate Screen,Urine Neg (Neg)
[2018-04-20] MEDS: Folic Acid 1 MG Tablet PO SCH (09:00)
[2018-04-20] MEDS: Pantoprazole Inj 40 MG Vial IV.PUSH SCH (09:00)
[2018-04-20] MEDS: Multivitamin/Minerals Therapeutic Tablet PO SCH (09:00)
[2018-04-20] MEDS ORDERED: Loperamide 2 MG Capsule PO PRN ×2 (09:50)
[2018-04-20] MEDS ORDERED: Acetaminophen 500 MG Tablet PO PRN (09:59)
--- NOTE | 2018-04-20 11:12 | P.PNFP ---
Results - Labs Result diagrams: 04/19/18 20:00 04/19/18 20:00 Abnormal lab results 04/19/18 04/19/18 04/19/18 Range/Units 20:00 20:00 20:00 Plt Count 132 L (150-450) th/mm3 [place] % (Auto) 10.6 H (0.0-8.0) % D-Dimer Quant (PE/DVT) (0.00-0.50) mg/L FEU Sodium 131 L (136-145) meq/L Chloride 93 L (98-107) meq/L BUN 6 L (7-18) mg/dL Total Bilirubin 1.1 H (0.2-1.0) mg/dL AST 169 H (15-37) U/L ALT 112 H (10-53) U/L Alkaline Phosphatase 154 H (45-117) U/L Troponin I (0.02-0.05) ng/mL Total Protein 10.0 H (6.4-8.2) g/dL Urine Clarity Hazy H (Clear) Urine Occult Blood Small H (Negative) Urine RBC 5 H (0-3) /hpf Urine Mucus Moderate H (Occasional) /lpf 04/19/18 04/19/18 Range/Units 20:20 20:20 Plt Count (150-450) th/mm3 [place] % (Auto) (0.0-8.0) % D-Dimer Quant (PE/DVT) 0.79 H (0.00-0.50) mg/L FEU Sodium (136-145) meq/L Chloride (98-107) meq/L BUN (7-18) mg/dL Total Bilirubin (0.2-1.0) mg/dL AST (15-37) U/L ALT (10-53) U/L Alkaline Phosphatase (45-117) U/L Troponin I Less than 0.02 L (0.02-0.05) ng/mL Total Protein (6.4-8.2) g/dL Urine Clarity (Clear) Urine Occult Blood (Negative) Urine RBC (0-3) /hpf Urine Mucus (Occasional) /lpf Short CBC 04/19/18 Range/Units 20:00 WBC 5.8 (4.0-11.0) th/mm3 Hgb 13.7 (11.6-15.3) gm/dL Hct 39.8 (35.0-46.0) % Plt Count 132 L (150-450) th/mm3 BMP 04/19/18 20:00 Sodium 131 L Potassium 3.5 Chloride 93 L Carbon Dioxide 28.8 BUN 6 L Creatinine 0.73 Calcium 9.0 Cardiac Enzymes 04/19/18 04/19/18 Range/Units 20:20 20:20 Troponin I Less than 0.02 L Cancelled (0.02-0.05) ng/mL Liver Function 04/19/18 Range/Units 20:00 Total Bilirubin 1.1 H (0.2-1.0) mg/dL AST 169 H (15-37) U/L ALT 112 H (10-53) U/L Alkaline Phosphatase 154 H (45-117) U/L Albumin 3.8 (3.4-5.0) g/dL Urine 04/19/18 Range/Units 20:00 Urine Color Karma (Yellw/Straw) Urine Clarity Hazy H (Clear) Urine pH 6.0 (5.0-8.5) Ur Specific [place] 1.026 (1.002-1.035) Urine Protein Negative (Neg-Trace) mg/dL Urine Glucose (UA) Negative (Negative) mg/dL - Imaging Impressions Chest X-Ray 04/19/18 19:50 CONCLUSION: No acute cardiopulmonary disease identified. Knee X-Ray 04/19/18 20:09 CONCLUSION: Small to moderate-sized right knee joint effusion. Venous Doppler Study 04/19/18 20:11 CONCLUSION: No evidence of right lower extremity DVT. Head CT 04/19/18 20:15 CONCLUSION: No evidence of acute intracranial findings. . Chest CTA 04/19/18 21:13 CONCLUSION: This study is negative for pulmonary embolism. Physical Exam Vital signs: Vital Signs 04/19/18 17:46 04/19/18 17:50 04/19/18 21:27 Temperature 101.4 F H 101 F H Pulse Rate 94 H 93 H Respiratory Rate 20 20 20 Blood Pressure 117/77 127/87 Pulse Oximetry 99 98 04/20/18 01:06 04/20/18 01:47 04/20/18 03:56 Temperature 98.5 F 98.6 F Pulse Rate 90 75 74 Respiratory Rate 17 20 21 Blood Pressure 133/93 H 126/93 H 135/98 H Pulse Oximetry 100 100 98 04/20/18 08:34 Temperature 98.8 F Pulse Rate 77 Respiratory Rate 18 Blood Pressure 116/88 Pulse Oximetry 98 Intake & Output 04/19/18 04/20/18 04/20/18 18:59 06:59 18:59 Intake Total 1690 / 1690 Balance 1690 / 1690 Weight 48.988 kg 48.988 kg Intake: IV 1450 / 1450 Unasyn Inj 1,500 MG In NS Inj 100 / 100 100 ML @ 200 mls/hr IV.SIG ONCE ONE Rx#:[id number] NS Inj 1,000 ML @ Wide Open IV. 1000 / 1000 SIG BOLUS ONE Rx#:[id number] Vancomycin Inj 1,000 MG In NS 250 / 250 Inj 250 ML @ 250 mls/hr IV.SIG ONCE ONE Rx#:[id number] Rocephin Inj 2,000 MG In NS Inj 100 / 100 100 ML @ 200 mls/hr IV.SIG Q24H MAAME Rx#:[id number] Oral 240 / 240 Other: # Voids 2 Weight On Admission 48.988 kg Assessment and Plan - Assessment (1) Fever Code(s): R50.9 - Fever, unspecified Status: Acute (2) IV drug abuse Code(s): F19.10 - Other psychoactive substance abuse, uncomplicated Status: Acute (3) Alcohol abuse Code(s): F10.10 - Alcohol abuse, uncomplicated Status: Acute (4) Fatty liver determined by biopsy Code(s): K76.0 - Fatty (change of) liver, not elsewhere classified Status: Acute - Assessment and Plan Patient is a 27-year-old female with a history of IV drug abuse who presents with approximately 1 year of intermittent fever with a reported high of 106 taken orally. -Intermittent fever: Due to her IV drug abuse and the long-standing nature of this fever endocarditis is an important possibility. SIRS criteria met with temperature greater than 100.4 and heart rate greater than 90 Lactic acid of 0.8 Vancomycin and Rocephin to cover causes of endocarditis Blood cultures 3 pending (collected around 1999 on 03/19) Transthoracic echocardiogram to assess for endocarditis Tylenol as needed fever -Knee pain X-ray showed moderate effusion without evidence of acute fracture Septic joint is a possibility due to her IV drug abuse and possible infection, however her pain is minimal at this time which makes this unlikely - N/V: reports N/V daily for the past year along with decreased appetite She has had no weight loss over this period of time Zofran 4 mg ODT if able to tolerate p.o. and IV if unable to tolerate p.o. She has a history of acid reflux, start PO Protonix 40mg daily - IVDA: Current IV Dilaudid use Hepatitis C ordered Patient verbally consented to HIV testing, we will obtain written consents Urine drug screen ordered -Alcohol abuse: Alcohol consumption of about 1 pack per day. This puts her at risk for withdrawal. [facility] protocol -Elevated d-dimer at 0.79 Negative ultrasound of the lower extremity Chest x-ray showed no acute processes CTA negative for pulmonary Respiratory status is stable - Fatty liver disease She has a history of biopsy-proven fatty liver disease, likely alcoholic due to her history She has elevation of liver enzymes, we will continue to follow Fluids: IV to Hep-Lock Electrolytes: monitor and replete as needed Nutrition: Regular adult diet GI prophylaxis: On Protonix for other purposes VTE prophylaxis: Not indicated due to low risk
[2018-04-20] MEDS ORDERED: Naloxone Inj 0.4 MG/ML Vial IV.PUSH PRN (11:19)
--- NOTE | 2018-04-20 11:51 | ECHRPT ---
Indication: SEPSIS CONCLUSIONS The left ventricular systolic function is hyperdynamic with an estimated ejection fraction in the ra nge of 65- 70%. Normal left ventricular size and wall thickness. No regional wall motion abnormalities are present. No evidence of vegetations or significant valvular heart disease noted. BP: / HR: 79 Rhythm: Sinus Technical Quality:Excellent FINDINGS LEFT VENTRICLE The left ventricular systolic function is hyperdynamic with an estimated ejection fraction in the ra nge of 65- 70%. Normal left ventricular size. Wall thickness is normal. No regional wall motion abnormalities are present. RIGHT VENTRICLE Normal right ventricular size and systolic function. LEFT ATRIUM The left atrial size is normal. RIGHT ATRIUM The right atrial size is normal. ATRIAL SEPTUM Normal atrial septal thickness without atrial level shunting by limited color doppler interrogation. AORTA The aortic root and proximal ascending aorta are normal in size on limited imaging. MITRAL VALVE Structurally normal mitral valve. No mitral valve stenosis or regurgitation. AORTIC VALVE Trileaflet aortic valve. No aortic valve stenosis or regurgitation. TRICUSPID VALVE Structurally normal tricuspid valve. No tricuspid valve stenosis or regurgitation. PULMONARY VALVE The pulmonary valve is not well visualized. VESSELS The inferior vena cava is normal in size. PERICARDIUM No pericardial effusion. Fernando Carrion MD (Electronically Signed) Final Date:20 April 2018 11:50
[2018-04-20] MEDS ORDERED: Methadone 10 MG Tablet PO ONE (12:00)
[2018-04-20] MEDS: Vancomycin Inj 750 MG in Sodium Chlor 0.9% Inj 250 ML IV.SIG SCH ×2 (13:03→23:35)
--- NOTE | 2018-04-20 13:57 | P.PNFP ---
Subjective Interval history: This is a 27-year-old female with history of IV drug abuse and currently taking Dilaudid 8 mg at least once daily who presented with knee pain for approximately a week. Her pain is in the right knee and is worse when she moves it or bears weight. She notices swelling in this knee. Additionally she reports a variable history of intermittent fevers up to as high as orally 106 over the past year with daily nausea and vomiting and heart palpitations with shortness of breath. Also reports a history of GERD and alcohol use/abuse. She takes no prescription medications. See history and physical examination for this admission for additional historical details including past, family, social history and review of systems at the time of admission. This morning, she is complaining primarily of pain in the right knee when she ambulates, and feels as though she is beginning to withdraw from her Dilaudid. She reports that she started using Dilaudid a couple years ago because some when she was dating was using it then and she decided to try it. Results - Labs Result diagrams: 04/19/18 20:00 04/19/18 20:00 Abnormal lab results 04/19/18 04/19/18 04/19/18 Range/Units 20:00 20:00 20:00 Plt Count 132 L (150-450) th/mm3 [place] % (Auto) 10.6 H (0.0-8.0) % D-Dimer Quant (PE/DVT) (0.00-0.50) mg/L FEU Sodium 131 L (136-145) meq/L Chloride 93 L (98-107) meq/L BUN 6 L (7-18) mg/dL Total Bilirubin 1.1 H (0.2-1.0) mg/dL AST 169 H (15-37) U/L ALT 112 H (10-53) U/L Alkaline Phosphatase 154 H (45-117) U/L Troponin I (0.02-0.05) ng/mL Total Protein 10.0 H (6.4-8.2) g/dL Urine Clarity Hazy H (Clear) Urine Occult Blood Small H (Negative) Urine RBC 5 H (0-3) /hpf Urine Mucus Moderate H (Occasional) /lpf 04/19/18 04/19/18 Range/Units 20:20 20:20 Plt Count (150-450) th/mm3 [place] % (Auto) (0.0-8.0) % D-Dimer Quant (PE/DVT) 0.79 H (0.00-0.50) mg/L FEU Sodium (136-145) meq/L Chloride (98-107) meq/L BUN (7-18) mg/dL Total Bilirubin (0.2-1.0) mg/dL AST (15-37) U/L ALT (10-53) U/L Alkaline Phosphatase (45-117) U/L Troponin I Less than 0.02 L (0.02-0.05) ng/mL Total Protein (6.4-8.2) g/dL Urine Clarity (Clear) Urine Occult Blood (Negative) Urine RBC (0-3) /hpf Urine Mucus (Occasional) /lpf Short CBC 04/19/18 Range/Units 20:00 WBC 5.8 (4.0-11.0) th/mm3 Hgb 13.7 (11.6-15.3) gm/dL Hct 39.8 (35.0-46.0) % Plt Count 132 L (150-450) th/mm3 BMP 04/19/18 20:00 Sodium 131 L Potassium 3.5 Chloride 93 L Carbon Dioxide 28.8 BUN 6 L Creatinine 0.73 Calcium 9.0 Cardiac Enzymes 04/19/18 04/19/18 Range/Units 20:20 20:20 Troponin I Less than 0.02 L Cancelled (0.02-0.05) ng/mL Liver Function 04/19/18 Range/Units 20:00 Total Bilirubin 1.1 H (0.2-1.0) mg/dL AST 169 H (15-37) U/L ALT 112 H (10-53) U/L Alkaline Phosphatase 154 H (45-117) U/L Albumin 3.8 (3.4-5.0) g/dL Urine 04/19/18 Range/Units 20:00 Urine Color Kamra (Yellw/Straw) Urine Clarity Hazy H (Clear) Urine pH 6.0 (5.0-8.5) Ur Specific [place] 1.026 (1.002-1.035) Urine Protein Negative (Neg-Trace) mg/dL Urine Glucose (UA) Negative (Negative) mg/dL - Imaging Impressions Chest X-Ray 04/19/18 19:50 CONCLUSION: No acute cardiopulmonary disease identified. Knee X-Ray 04/19/18 20:09 CONCLUSION: Small to moderate-sized right knee joint effusion. Venous Doppler Study 04/19/18 20:11 CONCLUSION: No evidence of right lower extremity DVT. Head CT 04/19/18 20:15 CONCLUSION: No evidence of acute intracranial findings. . Chest CTA 04/19/18 21:13 CONCLUSION: This study is negative for pulmonary embolism. Physical Exam Vital signs: Vital Signs 04/19/18 17:46 04/19/18 17:50 04/19/18 21:27 Temperature 101.4 F H 101 F H Pulse Rate 94 H 93 H Respiratory Rate 20 20 20 Blood Pressure 117/77 127/87 Pulse Oximetry 99 98 04/20/18 01:06 04/20/18 01:47 04/20/18 03:56 Temperature 98.5 F 98.6 F Pulse Rate 90 75 74 Respiratory Rate 17 20 21 Blood Pressure 133/93 H 126/93 H 135/98 H Pulse Oximetry 100 100 98 04/20/18 08:34 04/20/18 12:00 Temperature 98.8 F 98.4 F Pulse Rate 77 91 H Respiratory Rate 18 16 Blood Pressure 116/88 115/77 Pulse Oximetry 98 98 Intake & Output 04/19/18 04/20/18 04/20/18 18:59 06:59 18:59 Intake Total 1690 / 1690 Balance 1690 / 1690 Weight 48.988 kg 48.988 kg Intake: IV 1450 / 1450 Unasyn Inj 1,500 MG In NS Inj 100 / 100 100 ML @ 200 mls/hr IV.SIG ONCE ONE Rx#:[id number] NS Inj 1,000 ML @ Wide Open IV. 1000 / 1000 SIG BOLUS ONE Rx#:[id number] Vancomycin Inj 1,000 MG In NS 250 / 250 Inj 250 ML @ 250 mls/hr IV.SIG ONCE ONE Rx#:[id number] Rocephin Inj 2,000 MG In NS Inj 100 / 100 100 ML @ 200 mls/hr IV.SIG Q24H [facility] Rx#:[id number] Oral 240 / 240 Other: # Voids 2 Weight On Admission 48.988 kg - Additional findings Additional findings: She is accompanied by an elderly male "friend". Alert, pale, no acute distress although she is beginning to be a bit fidgety. Conjunctivae pink, sclerae not jaundiced Skin is warm and dry Oral mucous membranes pink and moist, teeth in good repair Neck is supple without lymphadenopathy Heart regular rate and rhythm without murmur rub or gallop Lungs are clear throughout Abdomen soft active bowel sounds with some minimal epigastric tenderness to palpation Extremities show tattoos, good pulses, minimal right knee effusion noted with no erythema or skin change. No calluses on the fingers. Assessment and Plan - Assessment (1) Fever Code(s): R50.9 - Fever, unspecified Status: Acute (2) IV drug abuse Code(s): F19.10 - Other psychoactive substance abuse, uncomplicated Status: Acute (3) Alcohol abuse Code(s): F10.10 - Alcohol abuse, uncomplicated Status: Acute (4) Fatty liver determined by biopsy Code(s): K76.0 - Fatty (change of) liver, not elsewhere classified Status: Acute - Assessment and Plan Patient is a 27-year-old female with a history of IV drug abuse who presents with approximately 1 year of intermittent fever with a reported high of 106 taken orally. -Intermittent fever: Due to her IV drug abuse and the long-standing nature of this fever endocarditis is an important possibility. SIRS criteria met with temperature greater than 100.4 and heart rate greater than 90 Lactic acid of 0.8 Vancomycin and Rocephin to cover causes of endocarditis Blood cultures 3 pending (collected around 1999 on 03/19) Transthoracic echocardiogram to assess for endocarditis Tylenol as needed fever -Knee pain X-ray showed moderate effusion without evidence of acute fracture Septic joint is a possibility due to her IV drug abuse and possible infection, however her pain is minimal at this time which makes this unlikely - N/V: reports N/V daily for the past year along with decreased appetite She has had no weight loss over this period of time Phenergan if able to tolerate p.o. and IV if unable to tolerate p.o. She has a history of acid reflux, start PO Protonix 40mg daily - IVDA: Current IV Dilaudid use Hepatitis C ordered Patient verbally consented to HIV testing, we will obtain written consents Urine drug screen ordered -Alcohol abuse: Alcohol consumption of about 1 pack per day. This puts her at risk for withdrawal. [facility] protocol -Elevated d-dimer at 0.79 Negative ultrasound of the lower extremity Chest x-ray showed no acute processes CTA negative for pulmonary Respiratory status is stable - Fatty liver disease She has a history of biopsy-proven fatty liver disease, likely alcoholic due to her history She has elevation of liver enzymes, we will continue to follow Fluids: IV to Hep-Lock Electrolytes: monitor and replete as needed Nutrition: Regular adult diet GI prophylaxis: On Protonix for other purposes VTE prophylaxis: Not indicated due to low risk Discussed Condition With: The entire medicine B team - Attending Attestation Patient seen, examined and discussed with the medicine B team. I agree with the plan. (1) Fever Qualifiers: Fever type: unspecified Qualified Code(s): R50.9 - Fever, unspecified
[2018-04-20] MEDS ORDERED: Lidocaine PF 1% Inj 5 ML Vial ONE (15:45)
[2018-04-20 17:24] LABS: Appearance,Synovial Fluid Marked (Clear); Color,Synovial Fluid Yellow (Straw)
[2018-04-20 18:50] LABS: Lymphocytes,Synovial Fluid 28 %; Neutrophils,Synovial Fluid 66 % (0-25)
--- NOTE | 2018-04-20 19:23 | ECG ---
Date Performed: 04/19/2018 Time Performed: 20:03:52 PTAGE: 27 years EKG: Sinus rhythm NORMAL ECG PREVIOUS TRACING : 09/22/2016 06.17 Since the previous tracing, no significant change noted DOCTOR: Carol Skinner Interpretating Date/Time 04/20/2018 19:22:45
[2018-04-20] MEDS: LORazepam 1 MG Tablet PO PRN (20:16)
[2018-04-20 20:59] LABS: Hepatitis A IgM Antibody Nonreactive (Nonreactive)
[2018-04-20 21:11] LABS: Hepatitits B Surface Antigen Nonreactive (Nonreactive)
[2018-04-21] MEDS: LORazepam 1 MG Tablet PO PRN (00:02)
[2018-04-21 06:59] LABS: Baso % (Auto) 0.5 % (0.0-2.0); Eos # (Auto) 0.3 th/mm3 (0.0-0.4); Eos % (Auto) 6.4 % (0.0-4.0); Hematocrit 39.6 % (35.0-46.0); Hemoglobin 13.2 gm/dL (11.6-15.3); Lymph # (Auto) 1.1 th/mm3 (1.0-4.8); Mean Corpuscular HGB Conc 33.2 % (32.0-36.0); Mean Corpuscular Hemoglobin 30.4 pg (27.0-34.0); Mean Corpuscular Volume 91.4 fL (80.0-100.0); Mean Platelet Volume 7.6 fL (7.0-11.0); Mono # (Auto) 0.6 th/mm3 (0.0-0.9); Neut # (Auto) 2.1 th/mm3 (1.8-7.7); Neut % (Auto) 53.1 % (16.0-70.0); Platelet Count 124 th/mm3 (150-450); Red Blood Count 4.34 mil/mm3 (4.00-5.30); Red Cell Distribution Width 14.7 % (11.6-17.2)
[2018-04-21 07:16] LABS: Albumin 2.9 g/dL (3.4-5.0); Anion Gap 9 meq/L (5-15); Aspartate Aminotransferase 128 U/L (15-37); Blood Urea Nitrogen 8 mg/dL (7-18); Calcium 8.5 mg/dL (8.5-10.1); Carbon Dioxide 24.9 meq/L (21.0-32.0); Chloride 103 meq/L (98-107); Glomerular Filtration Rate Greater Than 89 mL/min (>89); Glucose,Random 108 mg/dL (74-106); Potassium 3.7 meq/L (3.5-5.1); Sodium 137 meq/L (136-145)
[2018-04-21 07:30] LABS: Alanine Aminotransferase 88 U/L (10-53); Alkaline Phosphatase 118 U/L (45-117); Total Protein 8.5 g/dL (6.4-8.2)
[2018-04-21 08:20] LABS: Bilirubin,Urine Negative (Negative); Clarity,Urine Clear (Clear); Color,Urine Straw (Yellw/Straw); Glucose,Urine (UA) Negative (Negative); Leukocyte Esterase,Urine Negative (Negative); Nitrite,Urine Negative (Negative); Specific Gravity,Urine 1.005 (1.002-1.035); Squamous Epithelial Cell,Urine 4 /hpf (0-5)
--- NOTE | 2018-04-21 09:24 | P.PNFP ---
Subjective Interval history: Patient seen and examined at bedside today. Reports that her right-sided knee pain is better, but still hurts. She has not vomited since she has been hospitalized. She is tolerating her diet. She has remained afebrile. She does report withdrawal symptoms, but the methadone has relieved those. She denies chest pain, shortness of breath, abdominal pain. She is interested in talking to case management about possible rehab placement or outpatient therapy for her substance abuse. She is concerned about losing her apartment. <Gertrude Harris - 04/21/18 10:02> Results - Labs Result diagrams: 04/22/18 05:46 04/22/18 09:45 <Harmony Daily - 04/22/18 13:39> Abnormal lab results 04/22/18 04/22/18 04/22/18 Range/Units 05:46 05:46 09:45 [place] % (Auto) 13.4 H (0.0-8.0) % Eos % (Auto) 6.8 H (0.0-4.0) % Random Glucose 113 H (74-106) mg/dL Ferritin 489 H (8-252) ng/mL AST 223 H (15-37) U/L ALT 157 H (10-53) U/L Alkaline Phosphatase 126 H (45-117) U/L Total Protein 8.5 H (6.4-8.2) g/dL Albumin 3.0 L (3.4-5.0) g/dL Vancomycin Trough 16.3 H (5.0-10.0) mcg/mL Short CBC 04/22/18 Range/Units 05:46 WBC 4.4 (4.0-11.0) th/mm3 Hgb 12.2 (11.6-15.3) gm/dL Hct 36.5 (35.0-46.0) % Plt Count 172 D (150-450) th/mm3 BMP 04/22/18 09:45 Sodium 138 Potassium 4.0 Chloride 105 Carbon Dioxide 26.4 BUN 8 Creatinine 0.76 Calcium 8.7 Liver Function 04/22/18 Range/Units 09:45 Total Bilirubin 0.4 (0.2-1.0) mg/dL AST 223 H (15-37) U/L ALT 157 H (10-53) U/L Alkaline Phosphatase 126 H (45-117) U/L Albumin 3.0 L (3.4-5.0) g/dL <Harmony Daily - 04/22/18 13:39> Abnormal lab results 04/20/18 04/20/18 04/20/18 Range/Units 15:15 17:45 17:45 Plt Count (150-450) th/mm3 [place] % (Auto) (0.0-8.0) % Eos % (Auto) (0.0-4.0) % ESR 31 H (0-20) mm/hr Random Glucose (74-106) mg/dL AST (15-37) U/L ALT (10-53) U/L Alkaline Phosphatase (45-117) U/L C-Reactive Protein 1.80 H (0.00-0.30) mg/dL Total Protein (6.4-8.2) g/dL Albumin (3.4-5.0) g/dL Urine Occult Blood (Negative) Synovial Appearance Marked H (Clear) Synovial RBC 87735 H (0-0) /mm3 Synovial Nuc Cells 98355 H (0-200) /mm3 Synovial Neutrophils 66 H (0-25) % 04/21/18 04/21/18 04/21/18 Range/Units 06:00 06:00 08:05 Plt Count 124 L (150-450) th/mm3 [place] % (Auto) 14.0 H (0.0-8.0) % Eos % (Auto) 6.4 H (0.0-4.0) % ESR (0-20) mm/hr Random Glucose 108 H (74-106) mg/dL AST 128 H (15-37) U/L ALT 88 H (10-53) U/L Alkaline Phosphatase 118 H (45-117) U/L C-Reactive Protein (0.00-0.30) mg/dL Total Protein 8.5 H D (6.4-8.2) g/dL Albumin 2.9 L D (3.4-5.0) g/dL Urine Occult Blood Small H (Negative) Synovial Appearance (Clear) Synovial RBC (0-0) /mm3 Synovial Nuc Cells (0-200) /mm3 Synovial Neutrophils (0-25) % Short CBC 04/21/18 Range/Units 06:00 WBC 4.0 (4.0-11.0) th/mm3 Hgb 13.2 (11.6-15.3) gm/dL Hct 39.6 (35.0-46.0) % Plt Count 124 L (150-450) th/mm3 BMP 04/21/18 06:00 Sodium 137 Potassium 3.7 Chloride 103 D Carbon Dioxide 24.9 BUN 8 Creatinine 0.63 Calcium 8.5 Liver Function 04/21/18 Range/Units 06:00 Total Bilirubin 0.4 (0.2-1.0) mg/dL AST 128 H (15-37) U/L ALT 88 H (10-53) U/L Alkaline Phosphatase 118 H (45-117) U/L Albumin 2.9 L D (3.4-5.0) g/dL Urine 04/21/18 Range/Units 08:05 Urine Color Straw (Yellw/Straw) Urine Clarity Clear (Clear) Urine pH 8.0 (5.0-8.5) Ur Specific [place] 1.005 (1.002-1.035) Urine Protein Negative (Neg-Trace) mg/dL Urine Glucose (UA) Negative (Negative) mg/dL <Gertrude Harris - 04/21/18 09:24> - Imaging Impressions Abdomen Ultrasound 04/21/18 00:00 CONCLUSION: 1. Unremarkable study except for some increased echogenicity to liver presumably fatty liver.. No concerning solid masses seen. No free fluid seen <Harmony Daily - 04/22/18 13:39> Physical Exam Vital signs: Vital Signs 04/21/18 16:00 04/21/18 20:00 04/22/18 00:00 Temperature 98.2 F 99.0 F 97.7 F Pulse Rate 85 83 85 Respiratory Rate 16 18 18 Blood Pressure 109/70 108/65 109/72 Pulse Oximetry 98 96 96 04/22/18 04:00 04/22/18 08:00 Temperature 97.8 F 98.3 F Pulse Rate 76 81 Respiratory Rate 18 20 Blood Pressure 91/60 L 112/70 Pulse Oximetry 97 97 Intake & Output 04/21/18 04/22/18 04/22/18 18:59 06:59 18:59 Intake Total 857.5 / 857.5 600 / 600 Balance 857.5 / 857.5 600 / 600 Weight 53.9 kg Intake: IV 257.5 / 257.5 600 / 600 Vancomycin Inj 1,000 MG In NS 500 / 500 Inj 250 ML @ 250 mls/hr IV.SIG Q8H [facility] Rx#:[id number] Vancomycin Inj 750 MG In NS Inj 257.5 / 257.5 250 ML @ 250 mls/hr IV.SIG Q12H [facility] Rx#:[id number] Rocephin Inj 2,000 MG In NS Inj 100 / 100 100 ML @ 200 mls/hr IV.SIG Q24H [facility] Rx#:[id number] Oral 600 / 600 Other: # Voids 7 # Bowel Movements 1 <KillianHarmony - 04/22/18 13:39> Vital Signs 04/20/18 12:00 04/20/18 14:56 04/20/18 15:22 Temperature 98.4 F 99.4 F Pulse Rate 91 H 82 80 Respiratory Rate 16 18 18 Blood Pressure 115/77 135/99 H 131/91 H Pulse Oximetry 98 99 98 04/20/18 16:00 04/20/18 20:00 04/20/18 20:12 Temperature 98.3 F 97.8 F Pulse Rate 88 80 90 Respiratory Rate 16 14 Blood Pressure 120/89 123/78 Pulse Oximetry 97 97 04/20/18 23:58 04/21/18 00:00 04/21/18 03:56 Temperature 98.3 F Pulse Rate 81 81 81 Respiratory Rate 18 Blood Pressure 96/62 L Pulse Oximetry 98 04/21/18 04:00 04/21/18 08:00 Temperature 98.2 F Pulse Rate 89 86 Respiratory Rate 18 Blood Pressure 102/66 Pulse Oximetry 98 Intake & Output 04/20/18 04/21/18 04/21/18 18:59 06:59 18:59 Intake Total 657.5 / 657.5 597.5 / 597.5 Output Total Balance 656.5 / 656.5 597.5 / 597.5 Weight 51.4 kg Intake: IV 257.5 / 257.5 357.5 / 357.5 Vancomycin Inj 750 MG In NS Inj 257.5 / 257.5 257.5 / 257.5 250 ML @ 250 mls/hr IV.SIG Q12H [facility] Rx#:[id number] Rocephin Inj 2,000 MG In NS Inj 100 / 100 100 ML @ 200 mls/hr IV.SIG Q24H [facility] Rx#:[id number] Oral 400 / 400 240 / 240 Output: Urine Other: # Voids 3 <Gertrude Harris 04/21/18 09:24> - Constitutional no acute distress, mild distress <Gertrude Harris 04/21/18 10:02> - Routine HEENT Exam Head: Present: normocephalic, atraumatic <Gertrude Harris 04/21/18 10:02> Eye: Present: PERRL <Gertrude Harris 04/21/18 10:02> ENT: Present: mucous membranes moist <Gertrude Harris 04/21/18 10:02> - Routine Respiratory Exam Present: CTA bilaterally <Gertrude Harris 04/21/18 10:02> - Routine Cardiovascular Exam Present: RRR, S1, S2. Absent: murmur <Gertrude Harris 04/21/18 10:02> - Routine Abdominal Exam Present: soft, normoactive bowel sounds. Absent: tenderness <Gertrude Harris 04/21/18 10:02> - Routine Extremities Exam Absent: edema <Gertrude Harris 04/21/18 10:02> - Routine Neurological Exam Present: alert, oriented X3 <Gertrude Harris 04/21/18 10:02> Assessment and Plan - Assessment (1) Fever Code(s): R50.9 - Fever, unspecified Status: Acute (2) IV drug abuse Code(s): F19.10 - Other psychoactive substance abuse, uncomplicated Status: Acute (3) Alcohol abuse Code(s): F10.10 - Alcohol abuse, uncomplicated Status: Acute (4) Fatty liver determined by biopsy Code(s): K76.0 - Fatty (change of) liver, not elsewhere classified Status: Acute (5) Knee pain, right Code(s): M25.561 - Pain in right knee Status: Acute (6) Nausea & vomiting Code(s): R11.2 - Nausea with vomiting, unspecified Status: Acute (7) Elevated d-dimer Code(s): R79.89 - Other specified abnormal findings of blood chemistry Status : Acute (8) Nutrition, metabolism, and development symptoms Code(s): R63.8 - Other symptoms and signs concerning food and fluid intake Status: Acute (9) DVT prophylaxis Status: Acute <Harmony Daily - 04/22/18 13:39> (1) Fever Code(s): R50.9 - Fever, unspecified Status: Acute (2) IV drug abuse Code(s): F19.10 - Other psychoactive substance abuse, uncomplicated Status: Acute (3) Alcohol abuse Code(s): F10.10 - Alcohol abuse, uncomplicated Status: Acute (4) Fatty liver determined by biopsy Code(s): K76.0 - Fatty (change of) liver, not elsewhere classified Status: Acute (5) Knee pain, right Code(s): M25.561 - Pain in right knee Status: Acute (6) Nausea & vomiting Code(s): R11.2 - Nausea with vomiting, unspecified Status: Acute (7) Elevated d-dimer Code(s): R79.89 - Other specified abnormal findings of blood chemistry Status : Acute (8) Nutrition, metabolism, and development symptoms Code(s): R63.8 - Other symptoms and signs concerning food and fluid intake Status: Acute (9) DVT prophylaxis Status: Acute <Gertrude Harris - 04/21/18 09:43> - Assessment and Plan Patient is a 27-year-old female with a history of IV drug abuse who presents with approximately 1 year of intermittent fever with a reported high of 106 taken orally. -Intermittent fever: Due to her IV drug abuse and the long-standing nature of this fever endocarditis is an important possibility. SIRS criteria met with temperature greater than 100.4 and heart rate greater than 90. Patient has remained afebrile during admission. We will continue to monitor blood cultures and if the remain negative and the patient remains afebrile I do not believe a FRANNY is warranted at this time. Lactic acid of 0.8 Vancomycin and Rocephin to cover causes of endocarditis Blood cultures 3 No GROWTH 1 Day (collected around 1999 on 03/19) Transthoracic echocardiogram: NEGATIVE for vegetations Tylenol as needed fever -Knee pain X-ray showed moderate effusion without evidence of acute fracture Septic joint is a possibility due to her IV drug abuse and possible infection, however her pain is minimal at this time which makes this unlikely. -Right knee US and aspiration: * gram stain and culture PENDING * RBC 1420 * Nucleated cells 22823 * neutrophils 66 * lymph 28 * monocytes 6 - N/V: reports N/V daily for the past year along with decreased appetite. Patient has had no vomiting during hospitalization. Cyclic vomiting may be due in part of her significant alcohol and drug abuse and intermittent withdrawal periods. She has had no weight loss over this period of time with significant drug and alcohol abuse. Phenergan if able to tolerate p.o. and IV if unable to tolerate p.o. She has a history of acid reflux, start PO Protonix 40mg daily - IVDA: Current IV Dilaudid use. Patient states she uses between 5 and 12 times per day. Significant cessation counseling completed today. Withdrawal medications: Methadone Clonidine Loperamide Hepatitis C: nonreactive HIV: nonreactive Urine drug screen: negative -Alcohol abuse: Alcohol consumption of about 1 pack per day. This puts her at risk for withdrawal. [facility] protocol -Elevated d-dimer at 0.79 Negative ultrasound of the lower extremity Chest x-ray showed no acute processes CTA negative for pulmonary Respiratory status is stable - Fatty liver disease She has a history of biopsy-proven fatty liver disease, likely alcoholic due to her history. She has elevation of liver enzymes, we will continue to follow. Liver ultrasound: PENDING Fluids: IV to Hep-Lock Electrolytes: monitor and replete as needed Nutrition: Regular adult diet GI prophylaxis: On Protonix for other purposes VTE prophylaxis: Not indicated due to low risk <Gertrude Harris - 04/21/18 10:02> - Attending Attestation Patient was seen and examined, discussed with the medicine team. I agree with the findings and with the plan. <Harmony Daily - 04/22/18 13:39> <TruphillipGertrude A - Last Filed: 04/21/18 09:43> (1) Fever Qualifiers: Fever type: unspecified Qualified Code(s): R50.9 - Fever, unspecified <Harmony Daily - Last Filed: 04/22/18 13:39> (1) Fever Qualifiers: Fever type: unspecified Qualified Code(s): R50.9 - Fever, unspecified <Gertrude Harris Sarmad - Last Filed: 04/21/18 09:43> (1) Fever Qualifiers: Fever type: unspecified Qualified Code(s): R50.9 - Fever, unspecified <Harmony Daily - Last Filed: 04/22/18 13:39> (1) Fever Qualifiers: Fever type: unspecified Qualified Code(s): R50.9 - Fever, unspecified
[2018-04-21] MEDS: Pantoprazole Inj 40 MG Vial IV.PUSH SCH (09:42)
[2018-04-21] MEDS: Multivitamin/Minerals Therapeutic Tablet PO SCH (09:44)
[2018-04-21] MEDS: Folic Acid 1 MG Tablet PO SCH (09:44)
[2018-04-21] MEDS ORDERED: Methadone 10 MG Tablet PO ONE (10:00)
[2018-04-21] MEDS ORDERED: Pharmacy Ordered Lab Info OTHER ONE (10:45)
[2018-04-21 10:56] LABS: Prothrombin Time 10.1 sec (9.8-11.6)
[2018-04-21 11:20] LABS: % Iron Saturation 13.1 % (20-50)
[2018-04-21] MEDS: Vancomycin Inj 750 MG in Sodium Chlor 0.9% Inj 250 ML IV.SIG SCH (11:53)
--- NOTE | 2018-04-21 12:04 | US ---
EXAM DATE: 04/20/2018 3:28 PM EDT AGE/SEX: 27 years / Female INDICATIONS: Right knee effusion. CLINICAL DATA: This is the patient's initial encounter. Patient reports that signs and symptoms have been present for 1 day and indicates a pain score of 0/10. MEDICAL/SURGICAL HISTORY: Gastroesophageal reflux disease. ETOH abuse. IV drug abuse. Retroperi toneal abscess. . Exploratory Laparotomy. COMPARISON: No prior exams available for comparison. FLUID: Total volume of 10 cc of straw-colored fluid Post procedure scanning reveals no hematoma or other complication. . . TECHNIQUE: Ultrasound guidance for needle aspiration. Aspiration. The risks, benefits and alternatives to the procedure were explained and verbal and written consent w as obtained. The site was prepped in sterile fashion. Full sterile technique was used, including ca p, mask, sterile gloves and gown and a large sterile sheet. Hand hygiene and 2% chlorhexidine and/or betadine/alcohol prep was utilized per protocol for cutaneous antisepsis. The skin and subcutaneous tissues were infiltrated with local anesthetic solution. Sterile gel and sterile probe cover were u tilized for ultrasound guidance. FINDINGS: With the patient on the ultrasound table, ultrasound imaging was used to select the most appropriate approach for aspiration. 21-gauge micropuncture needle was sonographically guided into the suprapatel lar fluid collection. 018 wire was advanced through the needle over which the 3-4 dilator was placed. Aspiration was performed through the outer 4 Cymraes dilator. CONCLUSION: Suprapatellar aspiration of the right knee as above. Electronically signed by: Eugene Guido MD 04/21/2018 12:03 PM EDT
--- NOTE | 2018-04-21 17:29 | US ---
EXAM DATE: 04/21/2018 5:25 PM EDT AGE/SEX: 27 years / Female INDICATIONS: Abdominal pain. CLINICAL DATA: This is the patient's initial encounter. Patient reports that signs and symptoms have been present for 1 week and indicates a pain score of 0/10. MEDICAL/SURGICAL HISTORY: Gastroesophageal reflux disease. ETOH abuse. IV drug abuse. Retroperi toneal abscess. None. COMPARISON: [facility] – [place], CT ABDOMEN & PELVIS W CONTRAST, 09/22/2016. . MEASUREMENTS: Liver:__ 15.5 cm. Common Bile Duct:___ 5mm. Right Kidney:___10.2 x 3.9 x 5.6 cm. Left Kidney:___10.5 x 4.9 x 4.7 cm. Spleen:___11.8 cm. FINDINGS: Liver: Increased echotexture without focal lesion or ductal dilation. Portal Vein: Hepatopedal flow seen in portal vein. Common Duct: No intraluminal mass or stone visualized. Gallbladder: Demonstrates no wall thickening or pericholecystic fluid. No stones visualized. Pancreas: Not well visualized. Right Kidney: Normal echotexture and cortical thickness. No mass or hydronephrosis. Left Kidney: Normal echotexture and cortical thickness. No mass or hydronephrosis. Ascites: None Pleural Effusion: None Spleen: No focal lesion. Aorta: Non aneurysmal. IVC: Within normal limits Other: None. CONCLUSION: 1. Unremarkable study except for some increased echogenicity to liver presumably fatty liver.. No co ncerning solid masses seen. No free fluid seen Electronically signed by: Ean Brock MD 04/21/2018 5:27 PM EDT
[2018-04-21] MEDS: Vancomycin Inj 1,000 MG in Sodium Chlor 0.9% Inj 250 ML IV.SIG SCH (18:09)
[2018-04-22] MEDS: LORazepam 1 MG Tablet PO PRN (00:47)
[2018-04-22] MEDS: Vancomycin Inj 1,000 MG in Sodium Chlor 0.9% Inj 250 ML IV.SIG SCH ×2 (01:30→12:36)
[2018-04-22 06:17] LABS: Baso % (Auto) 0.8 % (0.0-2.0); Eos # (Auto) 0.3 th/mm3 (0.0-0.4); Eos % (Auto) 6.8 % (0.0-4.0); Hematocrit 36.5 % (35.0-46.0); Hemoglobin 12.2 gm/dL (11.6-15.3); Lymph # (Auto) 1.3 th/mm3 (1.0-4.8); Lymph % (Auto) 28.6 % (9.0-44.0); Mean Corpuscular HGB Conc 33.5 % (32.0-36.0); Mean Corpuscular Hemoglobin 30.4 pg (27.0-34.0); Mean Corpuscular Volume 90.7 fL (80.0-100.0); Mean Platelet Volume 7.4 fL (7.0-11.0); Mono # (Auto) 0.6 th/mm3 (0.0-0.9); Mono % (Auto) 13.4 % (0.0-8.0); Neut # (Auto) 2.2 th/mm3 (1.8-7.7); Neut % (Auto) 50.4 % (16.0-70.0); Platelet Count 172 th/mm3 (150-450); Red Blood Count 4.02 mil/mm3 (4.00-5.30); Red Cell Distribution Width 14.9 % (11.6-17.2); White Blood Count 4.4 th/mm3 (4.0-11.0)
[2018-04-22] MEDS ORDERED: Methadone 10 MG Tablet PO ONE (09:04)
[2018-04-22] MEDS ORDERED: Pharmacy Ordered Lab Info OTHER ONE (09:45)
[2018-04-22] MEDS: Pantoprazole Inj 40 MG Vial IV.PUSH SCH (09:49)
[2018-04-22] MEDS: Multivitamin/Minerals Therapeutic Tablet PO SCH (09:51)
[2018-04-22] MEDS: Folic Acid 1 MG Tablet PO SCH (09:51)
--- NOTE | 2018-04-22 09:59 | P.PNFP ---
Subjective Interval history: Patient seen and examined bedside this morning. No acute events overnight. Denies any fever/chills. Denies any chest pain/shortness of breath/dizziness. Patient continues to have right knee pain on ambulation, but she states is improving. <Paige Cabrera - 04/22/18 09:59> Results - Labs Result diagrams: 04/22/18 05:46 04/22/18 09:45 <Harmony Daily - 04/24/18 10:56> Abnormal lab results 04/21/18 04/21/18 04/21/18 Range/Units 10:00 10:00 10:00 Geary % (Auto) (0.0-8.0) % Eos % (Auto) (0.0-4.0) % ESR 56 H (0-20) mm/hr Iron 37 L (50-170) mcg/dL % Saturation 13.1 L (20-50) % Ferritin (8-252) ng/mL GGT 325 H (5-55) U/L C-Reactive Protein 1.02 H (0.00-0.30) mg/dL 04/22/18 04/22/18 Range/Units 05:46 05:46 Geary % (Auto) 13.4 H (0.0-8.0) % Eos % (Auto) 6.8 H (0.0-4.0) % ESR (0-20) mm/hr Iron (50-170) mcg/dL % Saturation (20-50) % Ferritin 489 H (8-252) ng/mL GGT (5-55) U/L C-Reactive Protein (0.00-0.30) mg/dL Short CBC 04/22/18 Range/Units 05:46 WBC 4.4 (4.0-11.0) th/mm3 Hgb 12.2 (11.6-15.3) gm/dL Hct 36.5 (35.0-46.0) % Plt Count 172 D (150-450) th/mm3 Liver Function 04/21/18 Range/Units 10:00 GGT 325 H (5-55) U/L <Paige Cabrera - 04/22/18 09:59> - Imaging Impressions Needle Aspiration US 04/20/18 00:00 CONCLUSION: Suprapatellar aspiration of the right knee as above. Abdomen Ultrasound 09/18/18 00:00 CONCLUSION: 1. Unremarkable study except for some increased echogenicity to liver presumably fatty liver.. No concerning solid masses seen. No free fluid seen <Paige Cabrera - 04/22/18 09:59> Physical Exam Vital signs: Vital Signs 04/21/18 12:00 04/21/18 16:00 04/21/18 20:00 Temperature 98.3 F 98.2 F 99.0 F Pulse Rate 92 H 85 83 Respiratory Rate 16 16 18 Blood Pressure 107/75 109/70 108/65 Pulse Oximetry 98 98 96 04/22/18 00:00 04/22/18 04:00 Temperature 97.7 F 97.8 F Pulse Rate 85 76 Respiratory Rate 18 18 Blood Pressure 109/72 91/60 L Pulse Oximetry 96 97 Intake & Output 04/21/18 04/22/18 04/22/18 18:59 06:59 18:59 Intake Total 857.5 / 857.5 600 / 600 Balance 857.5 / 857.5 600 / 600 Weight 53.9 kg Intake: IV 257.5 / 257.5 600 / 600 Vancomycin Inj 1,000 MG In NS 500 / 500 Inj 250 ML @ 250 mls/hr IV.SIG Q8H [facility] Rx#:[id number] Vancomycin Inj 750 MG In NS Inj 257.5 / 257.5 250 ML @ 250 mls/hr IV.SIG Q12H [facility] Rx#:[id number] Rocephin Inj 2,000 MG In NS Inj 100 / 100 100 ML @ 200 mls/hr IV.SIG Q24H [facility] Rx#:[id number] Oral 600 / 600 Other: # Voids 7 # Bowel Movements 1 <Paige Cabrera - 04/22/18 09:59> Narrative: General: Well-nourished, well-developed, in no acute distress Skin: Intact, no rash present HEENT: Neck supple, no nodules appreciated Cardio: Regular rate and rhythm, no murmurs Respiratory: Clear to auscultation bilaterally, no wheezing, rales, crackles. Abdominal: Normal bowel sounds, soft, nondistended, no tenderness Musculoskeletal: 1+ effusion of right knee, no tenderness, no pain on active or passive extension/flexion <Paige Cabrera - 04/22/18 09:59> Assessment and Plan - Assessment (1) Fever Code(s): R50.9 - Fever, unspecified Status: Acute (2) IV drug abuse Code(s): F19.10 - Other psychoactive substance abuse, uncomplicated Status: Acute (3) Alcohol abuse Code(s): F10.10 - Alcohol abuse, uncomplicated Status: Acute (4) Fatty liver determined by biopsy Code(s): K76.0 - Fatty (change of) liver, not elsewhere classified Status: Acute (5) Knee pain, right Code(s): M25.561 - Pain in right knee Status: Acute (6) Nausea & vomiting Code(s): R11.2 - Nausea with vomiting, unspecified Status: Acute (7) Elevated d-dimer Code(s): R79.89 - Other specified abnormal findings of blood chemistry Status : Acute (8) Nutrition, metabolism, and development symptoms Code(s): R63.8 - Other symptoms and signs concerning food and fluid intake Status: Acute (9) DVT prophylaxis Status: Acute <KillianHarmony - 04/24/18 10:56> (1) Fever Code(s): R50.9 - Fever, unspecified Status: Acute (2) IV drug abuse Code(s): F19.10 - Other psychoactive substance abuse, uncomplicated Status: Acute (3) Alcohol abuse Code(s): F10.10 - Alcohol abuse, uncomplicated Status: Acute (4) Fatty liver determined by biopsy Code(s): K76.0 - Fatty (change of) liver, not elsewhere classified Status: Acute (5) Knee pain, right Code(s): M25.561 - Pain in right knee Status: Acute (6) Nausea & vomiting Code(s): R11.2 - Nausea with vomiting, unspecified Status: Acute (7) Elevated d-dimer Code(s): R79.89 - Other specified abnormal findings of blood chemistry Status : Acute (8) Nutrition, metabolism, and development symptoms Code(s): R63.8 - Other symptoms and signs concerning food and fluid intake Status: Acute (9) DVT prophylaxis Status: Acute <RachaelPaige yusuf - 04/22/18 10:07> - Assessment and Plan Patient is a 27-year-old female with a history of IV drug abuse who presents with approximately 1 year of intermittent fever with a reported high of 106 taken orally. -Intermittent fever: Endocarditis versus drug withdrawal versus septic joint versus other source of infection On admission: SIRS criteria met with temperature greater than 100.4 and heart rate greater than 90. Patient afebrile since 04/19 at 17: 50 Lactic acid of 0.8 Vancomycin and Rocephin 04/20-04/22 Blood cultures 3 No GROWTH 2 Day (collected around 1999 on 03/19) - Will f/u at [phone] with any positive cultures Transthoracic echocardiogram: NEGATIVE for vegetations Tylenol as needed fever -Knee pain X-ray showed mild-moderate effusion without evidence of acute fracture Septic joint is a possibility due to her IV drug abuse and possible infection, however her pain is minimal at this time which makes this unlikely. -Right knee US and aspiration: * gram stain negative, culture pending * RBC 1420 * Nucleated cells [id number] cell count * neutrophils 66% * lymph 28 * monocytes 6 * With elevated cell count of 47,000 and neutrophil count of 66% and Gram stain negative, this indicates either inflammatory/noninfectious versus gonococcal * --Improvement for last 72 hours with IV ceftriaxone 2 g every 24 hours, will follow up urine PCR for GC and likely DC with scheduled daily IM ceftriaxone injections 10 day total course (ceftriaxone 250 mg IM every 24 hours) * --Will give azithromycin 1 g p.o. to cover empirically for concomitant chlamydia infection - N/V: reports N/V daily for the past year along with decreased appetite. Patient has had no vomiting during hospitalization. Cyclic vomiting may be due in part of her significant alcohol and drug abuse and intermittent withdrawal periods. She has had no weight loss over this period of time with significant drug and alcohol abuse. Phenergan if able to tolerate p.o. and IV if unable to tolerate p.o. She has a history of acid reflux, start PO Protonix 40mg daily - IVDA: Current IV Dilaudid use. Patient states she uses between 5 and 12 times per day. Significant cessation counseling completed today. Withdrawal medications: Methadone Clonidine Loperamide Hepatitis C: nonreactive HIV: nonreactive Urine drug screen: negative -Alcohol abuse: Alcohol consumption of about 1 pack per day. This puts her at risk for withdrawal. CIWA protocol -Elevated d-dimer at 0.79 Negative ultrasound of the lower extremity Chest x-ray showed no acute processes CTA negative for pulmonary Respiratory status is stable - Fatty liver disease She has a history of biopsy-proven fatty liver disease, likely alcoholic due to her history. She has elevation of liver enzymes, we will continue to follow. Liver ultrasound: Unremarkable study, increased echogenicity to the liver presumably fatty liver. No concerning solid masses. Fluids: IV to Hep-Lock Electrolytes: monitor and replete as needed Nutrition: Regular adult diet GI prophylaxis: On Protonix for other purposes VTE prophylaxis: Not indicated due to low risk <Paige Cabrera - 04/22/18 10:19> - Attending Attestation Patient was seen and examined, discussed with the medicine team. I agree with the findings and with the plan. <Harmony Daily - 04/24/18 10:56> <Paige Cabrera - Last Filed: 04/22/18 10:07> (1) Fever Qualifiers: Fever type: unspecified Qualified Code(s): R50.9 - Fever, unspecified <Harmony Daily - Last Filed: 04/24/18 10:56> (1) Fever Qualifiers: Fever type: unspecified Qualified Code(s): R50.9 - Fever, unspecified <Paige Cabrera - Last Filed: 04/22/18 10:07> (1) Fever Qualifiers: Fever type: unspecified Qualified Code(s): R50.9 - Fever, unspecified <Harmony Daily - Last Filed: 04/24/18 10:56> (1) Fever Qualifiers: Fever type: unspecified Qualified Code(s): R50.9 - Fever, unspecified
[2018-04-22] MEDS ORDERED: Azithromycin 250 MG Tablet PO ONE (10:17)
[2018-04-22 10:31] VITALS: RESP 20
[2018-04-22 10:31] LABS: Alanine Aminotransferase 157 U/L (10-53); Anion Gap 7 meq/L (5-15); Aspartate Aminotransferase 223 U/L (15-37); Blood Urea Nitrogen 8 mg/dL (7-18); Calcium 8.7 mg/dL (8.5-10.1); Carbon Dioxide 26.4 meq/L (21.0-32.0); Chloride 105 meq/L (98-107); Glomerular Filtration Rate Greater Than 89 mL/min (>89); Glucose,Random 113 mg/dL (74-106); Sodium 138 meq/L (136-145)
[2018-04-22 10:33] LABS: Alkaline Phosphatase 126 U/L (45-117); Total Protein 8.5 g/dL (6.4-8.2); Vancomycin,Trough 16.3 mcg/mL (5.0-10.0)
--- NOTE | 2018-04-22 13:55 | P.DCO ---
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 [] May leave port accessed during therapy. [] May leave peripheral site accessed for duration of therapy. [x] If patient has SOB or respiratory distress, check oxygen saturation. If less than 90% or clinical signs of respiratory distress, administer oxygen at 2 L/min. via nasal cannula and notify physician. [x] Anaphylaxis/Reaction orders: * Stop infusion. * Keep IV line open with saline flush. * Notify physician. * Monitor vital signs every 15 minutes until symptoms resolve. * Check Oxygen saturation; Oxygen at 2 L/min. via nasal cannula if less than 90% or clinical signs of respiratory distress. * Administer diphenhydramine (Benadryl) 25 mg IV STAT, (unless patient has received as pre-med). May repeat once, if necessary. * Solu-Cortef 250 mg IVP over 30-60 seconds, use 100 mg vials for each dissolution. * Epinephrine (1mg/1 ml) 0.3 mg subcutaneously or IVP now with any signs of respiratory distress. * Check with physician for new additional pre-med orders if patient is re- challenged or re-treated. [x] May remove PICC line when treatment complete, after confirming with Physician. [x] If the patient is admitted to the hospital, the ED, or transferred via [facility] , complete transfer form including medication reconciliation order sheet. Case Management Consult: No Additional Information: Daily injections of IM Ceftriaxone 250mg x 7 days Allergies No Known Allergies Allergy (Unverified 04/19/18 19:31)
[2018-04-22 14:54] LABS: Anti-Nuclear Antibody Screen Pos (Neg)
[2018-04-22 16:50] VITALS: PULSE 87
[2018-04-23 09:34] VITALS: BP 100/67; TEMP 98.5; O2SAT 96
--- NOTE | 2018-04-23 13:53 | P.DS ---
Date of admission: 04/20/18 12:42 Primary care physician: No Primary Care Physician Brief History from admission: She is a 27-year-old female with a history of IV drug abuse who presents with intermittent fever and knee pain. She has a history of intermittent fevers over the past year that occur daily with a high of 106 taken orally. They are associated with chills and sweats. She typically wakes up with fever every day. During this time she also has had nausea and vomiting. Sometimes she vomits up to 12 times per day, but she typically has some vomiting every day. She has had decreased appetite for this past year as well. She has had some fluctuations in her weight, but no major weight changes. She has also had some symptoms of acid reflux for the past few years. She has some associated shortness of breath, palpitations, and lightheadedness, these symptoms have also occurred intermittently over the past year. She has been using IV Dilaudid for the past few years. She also has a history of alcohol abuse and drinks about 1 pint per day of liquor. She does not go to the doctor regularly, and reports no chronic medical problems , and takes no medications. She reports her knee pain has been increasing over the past week. She had no injury to the knee and rated her pain as 10 out of 10 earlier in the ED. Her pain is worse with ambulation. She currently has no knee pain. She received a dose of vancomycin and Unasyn in the ED. DS: Diagnosis - Discharge Diagnosis (1) Fever Status: Acute (2) IV drug abuse Status: Acute (3) Alcohol abuse Status: Acute (4) Fatty liver determined by biopsy Status: Acute (5) Knee pain, right Status: Acute (6) Nausea & vomiting Status: Acute (7) Elevated d-dimer Status: Acute (8) Nutrition, metabolism, and development symptoms Status: Acute (9) DVT prophylaxis Status: Acute DS: Medications - Discharge Medications Prescriptions: ceftriaxone 250 mg IM Q24H 7 Days #7 each DS: Summary Hospital Course: 27-year-old female with history of heavy IV drug use and heavy alcohol use, alcoholic liver disease, presents with history of 1 year of intermittent fevers , severe nausea/vomiting, and right knee pain. Patient was febrile at the time of admission with a fever of 101, however remained afebrile during the rest of the admission. Patient was placed on vancomycin and Rocephin empirically, administered from 04/20 - 04/22. Echo was negative for any abnormalities. Aspiration of right knee joint was performed, revealing elevated white count and elevated neutrophil count, Gram stain negative final. Differential includes inflammatory/noninfectious versus gonococcal. Knee pain improved over admission. Day of discharge blood cultures were negative 3 days, will contact patient with any positive blood cultures at [phone]. Patient urine PCR for GC negative, and patient discharged with scheduled daily IM ceftriaxone injection 10 day total course. Due to low sensitivity and specificity of urine PCR for GC we will empirically cover for gonococcal arthritis given the clinical picture. Given azithromycin 1 g p.o. to empirically cover for concurrent chlamydia infection. Patient advised to follow-up with PCP to manage disseminated gonococcal infection, and either PCP or FLOOR ATTENDANT for GC genital swab. - Time Spent with Patient Total time spent providing and/or coordinating discharge services: Greater than 30 minutes - Quality: VTE Deep Vein Thrombosis/Pulmonary Embolism Present on Admission: No Exam Vital signs: Vital Signs 04/22/18 16:00 Pulse Rate 87 Intake & Output 04/22/18 04/23/18 04/23/18 18:59 06:59 18:59 Intake Total 420 / 420 Balance 420 / 420 Weight 53.9 kg Intake: Oral 420 / 420 Other: # Voids 6 Date of Last Bowel Movement 04/22/18 # Bowel Movements 1 Results Procedures completed during hospitalization: Right knee aspiration Labs on day of discharge: Labs from last 24 hours 04/22/18 04/21/18 04/20/18 09:51 10:00 15:15 Synovial Glucose Synovial Total Protein 3.2 H DEBORAH Screen Pos H DEBORAH Titer Pending DEBORAH Pattern Pending DEBORAH Interpretation Pending Chlam trachomat DNA PCR Not detected N.gonorrhoeae DNA (PCR) Not detected 04/20/18 15:15 Synovial Glucose 80 Synovial Total Protein DEBORAH Screen DEBORAH Titer DEBORAH Pattern DEBORAH Interpretation Chlam trachomat DNA PCR N.gonorrhoeae DNA (PCR) Preliminary micro results at discharge 04/19/18 20:20 Aerobic Blood Culture - Preliminary Blood - Line No growth in 4 days Anaerobic Blood Culture - Preliminary No growth in 4 days 04/19/18 19:55 Aerobic Blood Culture - Preliminary Blood - Peripheral No growth in 4 days Anaerobic Blood Culture - Preliminary No growth in 4 days 04/19/18 20:00 Aerobic Blood Culture - Preliminary Blood - Peripheral No growth in 4 days Anaerobic Blood Culture - Preliminary No growth in 4 days - Impressions ITS Impressions Chest X-Ray 04/19/18 19:50 CONCLUSION: No acute cardiopulmonary disease identified. Knee X-Ray 04/19/18 20:09 CONCLUSION: Small to moderate-sized right knee joint effusion. Venous Doppler Study 04/19/18 20:11 CONCLUSION: No evidence of right lower extremity DVT. Head CT 04/19/18 20:15 CONCLUSION: No evidence of acute intracranial findings. . Chest CTA 04/19/18 21:13 CONCLUSION: This study is negative for pulmonary embolism. Needle Aspiration US 04/20/18 00:00 CONCLUSION: Suprapatellar aspiration of the right knee as above. Abdomen Ultrasound 04/21/18 00:00 CONCLUSION: 1. Unremarkable study except for some increased echogenicity to liver presumably fatty liver.. No concerning solid masses seen. No free fluid seen Discharge Plan - Discharge Disposition Patient Disposition: 01 Discharge Home - Discharge Condition Condition: Stable - Discharge Order Discharge Orders: Discharge Order (Routine); Ordered 04/22/18 Ordered By: Paige Cabrera - Discharge Details Anticipated Discharge Date: 04/22/18 Discharge Comment: I verify that the patient has been receiving Methadone from the hospital from 04/21-04/22. - Physicians Team Primary Care Provider: Primary Care Michael,Paulina Attending Provider: Harmony Daily
[2018-04-24 15:06] LABS: Anti-Nuclear Antibody Pattern Speckled
== END 2018-04-22 17:07 | disposition home or self-care (01) ==
LOC: NEDA 17:13 → NEPE 17:13 → NEPGCP 04-20 01:26 → N04 04-20 15:22
PROVIDERS: ADMIT Family Medicine; ATTEND Family Medicine